=== PATIENT | male | born 1965 | race Caucasian/White ===

== ENCOUNTER 2016-05-14 14:53 | Emergency (ER) | payer OTHER ==
--- NOTE | 2016-05-14 15:19 | ED ---
General Adult HPI - General Chief complaint: Extremity Injury, Upper Stated complaint: Wrist pain Time Seen by Provider: 05/14/16 15:07 Source: patient, RN notes reviewed Mode of arrival: ambulatory Limitations: no limitations - History of Present Illness Initial comments: This is a 50-year-old male presents with right wrist pain 7 days. Patient states he was using his snowblower last week and noticed some soreness in the wrist after this. Patient denies any fall or forceful injury. Patient states he noticed swelling to the wrist just this morning. Patient states the pain is worse with flexion of the wrist and with [id number] motion of the wrist. Patient denies any numbness/weakness or tingling. Patient states he started a new job with a lot of repetitive motion using the bilateral upper extremities. Patient denies any history of rheumatoid arthritis or history of joint swelling , or gout. Patient is not on any anticoagulants. Patient denies any recent fever, chills, shortness breath, chest pain, abdominal pain, nausea/vomiting/ diarrhea, back pain, hematuria, headache, or visual changes, or any other complaints. - Related Data Home Medications Medication Instructions Recorded Confirmed Albuterol Inhaler [Ventolin 1 - 2 puff INHALATION RT-Q6H PRN 05/14/14 05/14/16 Inhaler] FLUoxetine HCL [PROzac] 20 mg PO DAILY 05/14/14 05/14/16 Naltrexone HCl [Revia] 50 mg PO DAILY 05/14/14 05/14/16 traZODone HCL 150 mg PO HS 05/14/14 05/14/16 Cholecalciferol [Vitamin D3] 2,000 unit PO DAILY 01/27/16 05/14/16 Pregabalin [Lyrica] 50 mg PO TID 01/27/16 05/14/16 Magnesium Oxide 1 tab PO DAILY 02/04/16 05/14/16 Allergies Allergy/AdvReac Type Severity Reaction Status Date / Time No Known Allergies Allergy Verified 05/14/16 14:58 Review of Systems ROS Statement: Those systems with pertinent positive or pertinent negative responses have been documented in the HPI. ROS Other: All systems not noted in ROS Statement are negative. 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, History of Any Multi-Drug Resistant Organisms: None Reported Past Surgical History: Cardiac Ablation, Heart Catheterization, Hernia Repair Additional Past Surgical History / Comment(s): JOSE INGUINAL HERNIA REPAIR, JOSE CARPAL TUNNEL, [facility] Past Anesthesia/Blood Transfusion Reactions: No Reported Reaction Past Psychological History: ADD/ADHD, Anxiety, Depression Additional Psychological History / Comment(s): STATES DOES NOT TAKE MEDICATION FOR ADD Smoking Status: Current every day smoker Past Alcohol Use History: None Reported Additional Past Alcohol Use History / Comment(s): STARTED SMOKING AT AGE 14, ( 1979) SMOKES 1 PPD. QUIT ETOH 2013 Past Drug Use History: None Reported Additional Drug Use History / Comment(s): TEENAGER - Past Family History Father Family Medical History: Unable to Obtain Additional Family Medical History / Comment(s): PASSED WHEN PT WAS 7 YEARS OLD. WAS AN ALCOHOLIC Mother Family Medical History: Deep Vein Thrombosis (DVT), Hypertension Additional Family Medical History / Comment(s): DIVERTICULTIS, DEPRESSION General Exam - General Exam Comments Initial Comments: General: The patient is awake and alert, in no distress, and does not appear acutely ill. Neck: The neck is supple, there is no tenderness or JVD. Cardiovascular: There is a regular rate and rhythm. No murmur, rub or gallop is appreciated. Respiratory: Lungs are clear to auscultation, respirations are non-labored, breath sounds are equal. No wheezes, stridor, rales, or rhonchi. Musculoskeletal: There is tenderness to palpation over the medial aspect of the right wrist on the volar side. There is pain with flexion and extension of the first digit of the right hand and has a positive Wendy test, on the right UE. There is mild swelling noted to the radial aspect of the volar right wrist. There is mild erythema to this area as well. Full range of motion, strength 5 /5 and Sensation intact. Radial pulses 2+ bilaterally. Normal capillary refill less than 2 seconds. Neurological: A&O x 3. CN II-XII intact, There are no obvious motor or sensory deficits. Coordination appears grossly intact. Speech is normal. Skin: Mild erythema and mild swelling noted to the volar aspect of the radial aspect of the right wrist. Skin is warm and dry and no rashes or lesions are noted. Psychiatric: Normal mood and affect. Limitations: no limitations Course Vital Signs 05/14/16 14:56 Temperature 97.8 F Pulse Rate 68 Respiratory 20 Rate Blood Pressure 133/76 O2 Sat by Pulse 100 Oximetry Medical Decision Making - Medical Decision Making This is a 50-year-old male presents with right wrist pain. On physical exam there is tenderness to palpation over the medial aspect of the right wrist on the dorsal side. There is pain with flexion and extension of the first digit of the right hand and has a positive Wendy test, on the right UE. There is mild swelling noted to the radial aspect of the dorsal right wrist. There is mild erythema to this area as well. Full range of motion, strength 5/5 and Sensation intact. Radial pulses 2+ bilaterally. Normal capillary refill less than 2 seconds. An x-ray of the right wrist was done and reviewed showing: There is pain with flexion and extension of the first digit of the right hand and has a positive Wendy test, on the right UE. Discussed rest, ice, elevate and use Oscar bandage for compression. Discussed over -the-counter Tylenol, ibuprofen/Aleve for pain. Discussed possible de Quervain' s tendinitis positive Wendy test. Discussed that patient has a thumb spica brace at home that is his 's. Discussed use of this over the next week for immobilization along with Oscar bandage and NSAIDs. Discussed return parameters. Discussed that patient should follow up with PCP in one to 2 days or return to the [facility] for any worsening symptoms or for any further concerns. Patient and who was also present in the room were receptive to this plan and patient will be discharged home. I discussed his case with attending physician Dr. Downing who agrees the plan as stated above. Disposition Clinical Impression: Tendinitis of right wrist Disposition: HOME SELF-CARE Condition: Good Instructions: Tendinitis (ED) Additional Instructions: Please use thumb spica splint that you have at home or Oscar wrap for compression and immobilization. Please use [id number] ibuprofen or Aleve as needed for any pain relief. Please rest, ice, elevate the right arm. Please use medication as discussed. Please follow-up with family doctor in the next 2 days of symptoms have not improved. Please return to emergency room if the symptoms increase or worsen or for any other concerns. Referrals: Epi Boyd DO [Primary Care Provider] - 1-2 days Time of Disposition: 15:43
--- NOTE | 2016-05-14 15:37 | XR ---
EXAMINATION TYPE: XR wrist complete RT DATE OF EXAM: 05/14/2016 3:26 PM COMPARISON: NONE HISTORY: 50-year-old male pain after repetitive motion, radial sided swelling. TECHNIQUE: 4 views FINDINGS: There is some soft tissue swelling seen overlying the radial aspect of the wrist. Radiocarp al and distal radial ulnar joint as well as the midcarpal compartment appear intact. No acute fractur e or dislocation. IMPRESSION: 1. No acute osseous abnormality seen. 2. Some radial sided soft tissue swelling. Soft tissue contusion or tenosynovitis are considerations.
[2016-05-14 15:53] VITALS: BP 129/88; PULSE 64; RESP 64; TEMP 98
--- NOTE | 2016-05-14 16:32 | ED ---
Medical Decision Making - Medical Decision Making Results of right wrist x-ray were done and reviewed with patient. Report showed : X-ray right wrist: #1 no acute osseous abnormality seen. #2 some radial sided soft tissue swelling. Soft tissue contusion or tenosynovitis are considerations. Reported by Dr. Munroe. Disposition Clinical Impression: Tendinitis of right wrist Disposition: HOME SELF-CARE Condition: Good Instructions: Tendinitis (ED) Additional Instructions: Please use thumb spica splint that you have at home or Oscar wrap for compression and immobilization. Please use [id number] ibuprofen or Aleve as needed for any pain relief. Please rest, ice, elevate the right arm. Please use medication as discussed. Please follow-up with family doctor in the next 2 days of symptoms have not improved. Please return to emergency room if the symptoms increase or worsen or for any other concerns. Referrals: Epi Boyd DO [Primary Care Provider] - 1-2 days
== END 2016-05-14 15:52 | disposition home or self-care (01) ==
LOC: EC 14:53
DX: M65.88 Other synovitis and tenosynovitis, other site (principal); J44.9 Chronic obstructive pulmonary disease, unspecified; F41.9 Anxiety disorder, unspecified; F32.9 Major depressive disorder, single episode, unspecified; F17.200 Nicotine dependence, unspecified, uncomplicated; Z79.899 Other long term (current) drug therapy
CPT/HCPCS: 99283

== ENCOUNTER 2016-06-20 09:20 | Day surgery (SDC) | payer OTHER ==
[2016-06-17 09:29] VITALS: BMI 22.1
[~2016-06-20 09:20] MED LIST: LACTATED RINGERS 1,000 ML IV SCH
[2016-06-20] MEDS ORDERED: LIDOCAINE 1% 20 ML VIAL (10MG/ML) FOR IV START INTRADERMA ONE (09:57)
[2016-06-20 10:04] VITALS: RESP 18; TEMP 97.6
[2016-06-20] MEDS ORDERED: fentaNYL (PF) 50 MCG/ML 2 ML AMP ONE (10:21)
[2016-06-20] MEDS ORDERED: MIDAZOLAM 2 MG/2 ML VIAL ONE (10:21)
[2016-06-20] MEDS ORDERED: IV FLUID CONTINUATION 1,000 ML IV ONE (11:06)
[2016-06-20 11:12] VITALS: BP 148/92; PULSE 60
--- NOTE | 2016-06-20 11:22 | P.PCN ---
Date of Procedure: 06/20/16 Procedure(s) Performed: Preoperative diagnoses= 1-left ilioinguinal neuralgia Postoperative diagnoses= same as preoperative diagnosis. Procedure= left ilioinguinal nerve block ultrasound guidance. Anesthesia= conscious sedation with Versed 2 mg and fentanyl 50 micrograms and local infiltration with lidocaine 1% 4 ml Estimated blood loss=minimal. Procedure indication= the patient had a history of severe chronic low back pain , diagnosed with sacroiliitis and lumbar sacral facet arthropathy unresponsive to conservative treatment. Procedure description= the patient was seen and identified in the preoperative holding area, risks and benefits and alternative of the procedure and possible complications discussed with the patient, and he agreed with the preceding, patient signed the consent, an IV was started, and vital signs were monitored and were stable throughout the procedure, patient was placed in the supine position on the stretcher, and the left groin area was prepped and draped with a standard fashion, and ultrasound probe placed medial to the anterior superior iliac crest, and the location of the left ilioinguinal nerve localized, local infiltration of the skin fenestration with Marcaine 0.75% 1 mL, then ultrasound needle, 22-gauge, advanced slowly, in plain, and the needle tip positioned in the area between the internal oblique muscle and the transverse abdominis muscle (at the location of the left ilioinguinal nerve ) total of 15 ML of Marcaine 0.75% mixed with 80 mg of Kenalog, injected after negative aspiration and there was no paresthesia during the injection Patient tolerated the procedure well without any complication, after the back was cleaned and a Band-Aid applied, the patient transported to recovery room in stable condition and he was monitored for 30 minutes before he was discharged home and then patient was reexamined before going home and patient was discharged in stable condition and patient will follow up with the pain clinic in a few weeks
== END 2016-06-20 11:52 | disposition home or self-care (01) ==
LOC: ORPAIN 09:20
PROVIDERS: ATTEND Specialist
DX: G89.29 Other chronic pain (principal); M54.5 Low back pain; G58.8 Other specified mononeuropathies; M46.1 Sacroiliitis, not elsewhere classified; M46.96 Unspecified inflammatory spondylopathy, lumbar region
CPT/HCPCS: 64425; 99152; 99153; J2250; J3010

== ENCOUNTER → 2016-07-05 | Outpatient (CLI) | payer OTHER ==
[2016-07-05 14:24] VITALS: BP 140/82; PULSE 68; RESP 18; TEMP 98.2
--- NOTE | 2016-07-05 14:56 | P.PN ---
Progress Note - Text Patient returns for followup for chronic left-sided groin pain after hernia surgery, s/p three ilioinguinal nerve blocks with 1-1.5 weeks' relief. Patient is only on Lyrica from his PCP and denies adverse drug effects from medications. Today, pt denies new-onset weakness, bowel/bladder incontinence, or any other signs or symptoms of cauda equina syndrome. There are no signs of acute intoxication, and no indications of medication diversion or overuse. In addition to above, 13-point review of systems is also negative for chest pain , shortness of breath, changes in vision, changes in hearing, new onset weakness , abdominal pain, diarrhea, extreme fatigue, malaise, fever, skin changes, homicidal or suicidal ideation, or bowel or bladder incontinence. Vital Signs: Reviewed in EMR Gen: WDWN, AAOx3, NAD HEENT: NCAT, EOMI, hearing grossly normal Pulm: resp unlabored Abd: soft, NT, ND Neck: supple, trachea midline TTP left groin area; no rebound or guarding Neuro: CN II-XII grossly intact, muscle strength lower extremities PRESERVED Imaging: Reviewed in EMR Assessment: 1. ilioinguinal neuralgia 2. chronic pain syndrome Plan: 1. Explanation: Opioid and psychological risk scores were reviewed. Diagnoses , prognoses, and multiple treatment options including but not limited to physical therapy, interventional therapies, adjuvant medical therapies, narcotic medication therapies, and surgery were discussed with the patient and all questions were answered to the patient's satisfaction. 2. Opioid agreement: no opioids prescribed 3. Counseling: The patient was counseled extensively on BODY MASS INDEX, EXERCISE. Specifically, the patient was instructed regarding the importance of weight control and exercise in the context of both chronic pain and overall health. 4. Procedures: will refer to [facility] (Dr. Metz) for ilioinguinal RFA 5. Consultations: None 6. Investigations: None 7. Medications: none prescribed 8. Disposition: f/u as needed; if patient begins to have worsening pain, he can schedule ilioinguinal NB by calling our clinic PQRS measures: 1-Patient's medications are documented in the chart. 2-Tobacco use is positive, counseling given 3-Patient has had a pneumococcal vaccine. 4-Advanced care planning discussed, patient unable to give. 5-Opioid contract NOT signed with the patient. 6-Pain positive, follow-up visit or procedure scheduled 7-Patient's blood pressure measured and documented, and patient will follow up with the primary care due to hypertension. 8-Patient's weight was measured, and body mass index within normal limits, and counseling was done. Patient instructed to follow up with PCP. 9-Patient WAS NOT identified as an unhealthy alcohol user.
== END | disposition home or self-care (01) ==
LOC: PNWHC3 14:02
PROVIDERS: ATTEND Anesthesiology
DX: G89.4 Chronic pain syndrome (principal); G58.8 Other specified mononeuropathies; I10 Essential (primary) hypertension; F17.200 Nicotine dependence, unspecified, uncomplicated; Z71.6 Tobacco abuse counseling; Z71.3 Dietary counseling and surveillance; Z98.890 Other specified postprocedural states
CPT/HCPCS: 99211

== ENCOUNTER → 2016-07-29 | Outpatient (CLI) | payer OTHER ==
--- NOTE | 2016-07-29 16:43 | XR ---
EXAMINATION TYPE: XR chest 2V DATE OF EXAM ORDERED: 07/29/2016 4:23 PM HISTORY: R63.4 Unexplained weight loss. REFERENCE: Previous study dated 01/30/2015. FINDINGS: The lungs are clear. Pleural spaces are clear. Heart size is normal. IMPRESSION: NORMAL CHEST.
== END | disposition home or self-care (01) ==
LOC: RADXRMAIN 16:09
PROVIDERS: ATTEND Family Medicine
DX: R63.4 Abnormal weight loss (principal); J44.9 Chronic obstructive pulmonary disease, unspecified; Z87.891 Personal history of nicotine dependence
CPT/HCPCS: 71020

== ENCOUNTER 2016-10-01 12:54 | Emergency (ER) | payer OTHER ==
[2016-10-01 12:59] VITALS: BP 132/85; PULSE 75; RESP 20; TEMP 98.1
[2016-10-01] MEDS ORDERED: PROPARACAINE 0.5% OPHTH DROPS 15 ML BTL RIGHT EYE STA (13:02)
[2016-10-01] MEDS ORDERED: ERYTHROMYCIN 5 MG/GM OPHTH OINT 3.5 GM TUBE RIGHT EYE STA (13:10)
--- NOTE | 2016-10-01 13:43 | ED ---
Eye Problem HPI - General Chief complaint: Eye Problems Stated complaint: Right Eye Pain Time Seen by Provider: 10/01/16 13:02 Source: patient, RN notes reviewed, old records reviewed Mode of arrival: ambulatory Limitations: no limitations - History of Present Illness Initial comments: Pleasant 51-year-old male presents emergency Department with right eye irritation. 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 Patient reports he will continue with scratching irritated. Patient states that he wears glasses. Patient states that his tetanus is up-to-date. Denies any changes in vision. Patient reports that he has not seen an memorial designer in the past. Patient denies any recent fever, chills, shortness of breath, chest pain, back pain, abdominal pain, nausea vomiting, numbness or tingling, dysuria or hematuria, constipation or diarrhea, headaches or visual changes, or any other current symptoms - Related Data Home Medications Medication Instructions Recorded Confirmed Albuterol Inhaler [Ventolin 1 - 2 puff INHALATION RT-Q6H PRN 05/14/14 06/20/16 Inhaler] FLUoxetine HCL [PROzac] 20 mg PO DAILY 05/14/14 07/05/16 Naltrexone HCl [Revia] 50 mg PO DAILY 05/14/14 07/05/16 traZODone HCL 150 mg PO HS 05/14/14 07/05/16 Cholecalciferol [Vitamin D3] 2,000 unit PO DAILY 01/27/16 06/20/16 Pregabalin [Lyrica] 50 mg PO TID 01/27/16 07/05/16 Magnesium Oxide 1 tab PO DAILY 02/04/16 07/05/16 Amoxicillin 07/05/16 Ibuprofen [Motrin] 800 mg PO Q8HR PRN 07/05/16 07/05/16 Allergies Allergy/AdvReac Type Severity Reaction Status Date / Time No Known Allergies Allergy Verified 10/01/16 13:00 Review of Systems ROS Statement: Those systems with pertinent positive or pertinent negative responses have been documented in the HPI. ROS Other: All systems not noted in ROS Statement are negative. 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, History of Any Multi-Drug Resistant Organisms: None Reported Past Surgical History: Cardiac Ablation, Heart Catheterization, Hernia Repair Additional Past Surgical History / Comment(s): JOSE INGUINAL HERNIA REPAIR, JOSE CARPAL TUNNEL, [facility]/TOOTH EXTRACTION Past Anesthesia/Blood Transfusion Reactions: No Reported Reaction Past Psychological History: ADD/ADHD, Anxiety, Depression Additional Psychological History / Comment(s): STATES DOES NOT TAKE MEDICATION FOR ADD Smoking Status: Current every day smoker Past Alcohol Use History: None Reported Additional Past Alcohol Use History / Comment(s): STARTED SMOKING AT AGE 14, ( 1979) SMOKES 1 PPD. QUIT ETOH 2013 Past Drug Use History: None Reported Additional Drug Use History / Comment(s): TEENAGER - Past Family History Father Family Medical History: Unable to Obtain Additional Family Medical History / Comment(s): PASSED WHEN PT WAS 7 YEARS OLD. WAS AN ALCOHOLIC Mother Family Medical History: Deep Vein Thrombosis (DVT), Hypertension Additional Family Medical History / Comment(s): DIVERTICULTIS, DEPRESSION General Exam Limitations: no limitations General appearance: alert, in no apparent distress Head exam: Present: atraumatic, normocephalic, normal inspection Eye exam: Present: normal appearance, PERRL, EOMI, conjunctival injection ( Right eye conjunctival injection. Evidence of a foreign metal body at the 5 o' clock position.). Absent: scleral icterus, periorbital swelling ENT exam: Present: normal exam, mucous membranes moist Neck exam: Present: normal inspection. Absent: tenderness, meningismus, lymphadenopathy Respiratory exam: Present: normal lung sounds bilaterally. Absent: respiratory distress, wheezes, rales, rhonchi, stridor Cardiovascular Exam: Present: regular rate, normal rhythm, normal heart sounds. Absent: systolic murmur, diastolic murmur, rubs, gallop, clicks GI/Abdominal exam: Present: soft, normal bowel sounds. Absent: distended, tenderness, guarding, rebound, rigid Extremities exam: Present: normal inspection, full ROM, normal capillary refill. Absent: tenderness, pedal edema, joint swelling, calf tenderness Back exam: Present: normal inspection Neurological exam: Present: alert, oriented X3, CN II-XII intact Psychiatric exam: Present: normal affect, normal mood Skin exam: Present: warm, dry, intact, normal color. 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 Patient reports he slept overnight puts him at home saline drops in his eye but is continued to be red and irritated. Patient reports it feels scratchy. Patient has evidence of foreign metal body at the 5 o'clock position. Patient's eye was visualized with a slit lamp. The foreign body was attempted to be removed by an Frederick brush. Foreign body was removed, as well as mild rust ring.. Patient started on erythromycin eye ointment. Discussed putting in an every 4 hours for the next 2 days. Patient is a given a referral for ophthalmology. Patient understands treatment plan will comply. Disposition Clinical Impression: Foreign body in eyeball, right, Corneal abrasion Disposition: HOME SELF-CARE Condition: Good Instructions: Corneal Abrasion (ED), Eye Foreign Body (ED) Additional Instructions: Patient advised to follow-up with memorial designer if symptoms continue to persist after 2-3 days. Always wear safety goggles when working with metal. Return to the emergency department if any alarming signs or symptoms occur. Referrals: Epi Boyd DO [Primary Care Provider] - 1-2 days Time of Disposition: 13:42
== END 2016-10-01 13:52 | disposition home or self-care (01) ==
LOC: EC 12:54
DX: T15.01XA Foreign body in cornea, right eye, initial encounter (principal); F32.9 Major depressive disorder, single episode, unspecified; F17.200 Nicotine dependence, unspecified, uncomplicated; Z79.899 Other long term (current) drug therapy; W45.8XXA Other foreign body or object entering through skin, initial encounter; Y93.89 Activity, other specified; Y92.69 Other specified industrial and construction area as the place of occurrence of the external cause
CPT/HCPCS: 65222; 99283

== ENCOUNTER 2016-10-12 16:39 | Emergency (ER) | payer OTHER ==
[2016-10-12 17:30] VITALS: BP 145/89; PULSE 61; RESP 16; TEMP 98
[2016-10-12] MEDS ORDERED: IBUPROFEN 600 MG TAB PO STA (18:14)
--- NOTE | 2016-10-12 18:21 | ED ---
Lower Extremity Injury HPI - General Chief Complaint: Extremity Injury, Lower Stated Complaint: Smashed pinky & toe Time Seen by Provider: 10/12/16 18:04 Source: patient, RN notes reviewed Mode of arrival: ambulatory Limitations: no limitations - History of Present Illness Initial Comments: Patient is a 51-year-old male presents to the emergency room for evaluation. Patient states that he was holding 100 pound metal pipe and accidentally dropped it. Patient states he tried to catch the pipe and hit his fifth finger of his right hand and then it landed on his second and third toes of his left foot. Patient states he has pain every time he tries to walk or move his finger and toes. Patient states the incident happened around 9:30 AM. Patient denies any other injuries during incident. Patient denies any numbness or tingling in his right pinky or left second and third toes. - Related Data Home Medications Medication Instructions Recorded Confirmed Albuterol Inhaler [Ventolin 1 - 2 puff INHALATION RT-Q6H PRN 05/14/14 06/20/16 Inhaler] FLUoxetine HCL [PROzac] 20 mg PO DAILY 05/14/14 07/05/16 Naltrexone HCl [Revia] 50 mg PO DAILY 05/14/14 07/05/16 traZODone HCL 150 mg PO HS 05/14/14 07/05/16 Cholecalciferol [Vitamin D3] 2,000 unit PO DAILY 01/27/16 06/20/16 Pregabalin [Lyrica] 50 mg PO TID 01/27/16 07/05/16 Magnesium Oxide 1 tab PO DAILY 02/04/16 07/05/16 Amoxicillin 07/05/16 Ibuprofen [Motrin] 800 mg PO Q8HR PRN 07/05/16 07/05/16 Allergies Allergy/AdvReac Type Severity Reaction Status Date / Time No Known Allergies Allergy Verified 10/12/16 17:29 Review of Systems ROS Statement: Those systems with pertinent positive or pertinent negative responses have been documented in the HPI. ROS Other: All systems not noted in ROS Statement are negative. 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, History of Any Multi-Drug Resistant Organisms: None Reported Past Surgical History: Cardiac Ablation, Heart Catheterization, Hernia Repair Additional Past Surgical History / Comment(s): JOSE INGUINAL HERNIA REPAIR, JOSE CARPAL TUNNEL, [facility]/TOOTH EXTRACTION Past Anesthesia/Blood Transfusion Reactions: No Reported Reaction Past Psychological History: ADD/ADHD, Anxiety, Depression Additional Psychological History / Comment(s): STATES DOES NOT TAKE MEDICATION FOR ADD Smoking Status: Current every day smoker Past Alcohol Use History: None Reported Additional Past Alcohol Use History / Comment(s): STARTED SMOKING AT AGE 14, ( 1979) SMOKES 1 PPD. QUIT ETOH 2013 Past Drug Use History: None Reported Additional Drug Use History / Comment(s): TEENAGER - Past Family History Father Family Medical History: Unable to Obtain Additional Family Medical History / Comment(s): PASSED WHEN PT WAS 7 YEARS OLD. WAS AN ALCOHOLIC Mother Family Medical History: Deep Vein Thrombosis (DVT), Hypertension Additional Family Medical History / Comment(s): DIVERTICULTIS, DEPRESSION General Exam - General Exam Comments Initial Comments: sitting in exam room, no acute distress. Limitations: no limitations General appearance: alert, in no apparent distress Head exam: Present: atraumatic, normocephalic, normal inspection Eye exam: Present: normal appearance ENT exam: Present: normal exam Neck exam: Present: normal inspection Respiratory exam: Absent: respiratory distress Right Hand Wrist exam: Present: full ROM, tenderness (tenderness on palpating over her distal phalanx of fifth digit), subungual hematoma (small subungual hematoma of fifth digit) Vascular: Present: normal capillary refill (capillary refill less than 2 seconds ), radial pulse (2+), ulnar pulse (2+) Left Foot/Toe exam: Present: full ROM, tenderness (tenderness on palpating over the middle and distal phalanx of the second and third digits), ecchymosis (second and third digits). Absent: normal inspection Neurovascular tendon exam: Present: no vascular compromise. Absent: pulse deficit (2+ dorsal pedal and posterior tibial pulses), abnormal cap refill ( capillary refill less than 2 seconds) Back exam: Present: normal inspection Neurological exam: Present: alert, oriented X3, CN II-XII intact Psychiatric exam: Present: normal affect, normal mood Skin exam: Present: warm, dry, intact, normal color. Absent: rash Course Vital Signs 10/12/16 10/12/16 17:24 19:09 Temperature 98.0 F 98.0 F Pulse Rate 61 61 Respiratory 16 16 Rate Blood Pressure 145/89 145/89 O2 Sat by Pulse 100 100 Oximetry Medical Decision Making - Medical Decision Making Patient is a 51-year-old male presents to the emergency room for evaluation of right hand pinky and left second and third digit pain. X-ray showed no acute fractures dislocations. Patient placed in a postop shoe advised to follow-up with primary care provider if symptoms are not improving in 7-10 days. Patient states he understands everything that was discussed with him. Return parameters discussed. - Radiology Data Radiology results: report reviewed, image reviewed Disposition Clinical Impression: Finger contusion, Contusion, toes Disposition: HOME SELF-CARE Condition: Good Instructions: Foot Contusion (ED), Finger Sprain (ED) Additional Instructions: Ice on and off for 10-15 minutes for the next 24-48 hours. take Tylenol or Motrin as needed for pain. Please follow-up with primary care provider if symptoms do not improve in 7-10 days. If new symptoms develop or symptoms worsen , please return to the ER. Referrals: Epi Boyd DO [Primary Care Provider] - 1-2 days Time of Disposition: 18:45
--- NOTE | 2016-10-12 18:32 | XR ---
EXAMINATION TYPE: XR finger RT DATE OF EXAM: 10/12/2016 COMPARISON: NONE HISTORY: Contusion TECHNIQUE: 3 views FINDINGS: I see no fracture nor dislocation. Joint spaces are normal. IMPRESSION: Negative right little finger exam.
--- NOTE | 2016-10-12 18:33 | XR ---
EXAMINATION TYPE: XR foot complete LT DATE OF EXAM: 10/12/2016 COMPARISON: NONE HISTORY: Contusion pain. TECHNIQUE: 3 views FINDINGS: I see no fracture nor dislocation. Metatarsals appear intact. Joint spaces appear normal. T here is a small Achilles calcaneal spur. IMPRESSION: Mild calcaneal spurring. No fracture.
== END 2016-10-12 19:09 | disposition home or self-care (01) ==
LOC: EC 16:39
DX: S60.051A Contusion of right little finger without damage to nail, initial encounter (principal); S90.122A Contusion of left lesser toe(s) without damage to nail, initial encounter; F32.9 Major depressive disorder, single episode, unspecified; F17.200 Nicotine dependence, unspecified, uncomplicated; Z79.899 Other long term (current) drug therapy; W20.8XXA Other cause of strike by thrown, projected or falling object, initial encounter
CPT/HCPCS: 99283

== ENCOUNTER 2016-11-17 02:52 | Emergency (ER) | payer OTHER ==
[2016-11-17 02:59] VITALS: BP 119/81; PULSE 89; RESP 18; TEMP 97.4
--- NOTE | 2016-11-17 03:44 | ED ---
Anxiety HPI - General Chief Complaint: Anxiety Stated Complaint: Alcohol/Detox Time Seen by Provider: 11/17/16 03:14 Source: patient, family, RN notes reviewed, old records reviewed Mode of arrival: ambulatory - History of Present Illness Initial Comments: 51-year-old male presents emergency Department chief complaint of severe anxiety and a lot of stressors over the past week. Patient reports that he started drinking last night and drank a half a pint of vodka. Patient reports he broke his sobriety 3 years today. He reports he lost his job as well as had a friend's diagnosis of cancer past week. Patient reports he is not able to handle distress. Patient's also reports that they've been eating and more frequent arguments. Patient's and patient are requesting that he can get back on has not drank some to help him stop from having the urge to drink or use drugs. Patient trying to get his prescription from his primary care doctor however they do not prescribe. patient reports having increased anxiety. she denies any suicidal or homicidal thoughts. he reports he is to have a counselor but does not seen a counselor in 3 months. Patient denies any recent fever, chills, shortness of breath, chest pain, back pain, abdominal pain, nausea vomiting, numbness or tingling, dysuria or hematuria, constipation or diarrhea, headaches or visual changes, or any other current symptoms - Related Data Home Medications: Home Medications Medication Instructions Recorded Confirmed Albuterol Inhaler [Ventolin 1 - 2 puff INHALATION RT-Q6H PRN 05/14/14 11/17/16 Inhaler] FLUoxetine HCL [PROzac] 20 mg PO DAILY 05/14/14 11/17/16 Naltrexone HCl [Revia] 50 mg PO DAILY 05/14/14 11/17/16 traZODone HCL 150 mg PO HS 05/14/14 11/17/16 Cholecalciferol [Vitamin D3] 2,000 unit PO DAILY 01/27/16 11/17/16 Pregabalin [Lyrica] 50 mg PO TID 01/27/16 11/17/16 Magnesium Oxide 1 tab PO DAILY 02/04/16 11/17/16 Ibuprofen [Motrin] 800 mg PO Q8HR PRN 07/05/16 11/17/16 Previous Rx's Medication Instructions Recorded LORazepam [Ativan] 0.5 mg PO BID #10 tab 11/17/16 Allergies/Adverse Reactions: Allergies Allergy/AdvReac Type Severity Reaction Status Date / Time No Known Allergies Allergy Verified 11/17/16 02:59 Review of Systems ROS Statement: Those systems with pertinent positive or pertinent negative responses have been documented in the HPI. ROS Other: All systems not noted in ROS Statement are negative. 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, History of Any Multi-Drug Resistant Organisms: None Reported Past Surgical History: Cardiac Ablation, Heart Catheterization, Hernia Repair Additional Past Surgical History / Comment(s): JOSE INGUINAL HERNIA REPAIR, JOSE CARPAL TUNNEL, [facility]/TOOTH EXTRACTION Past Anesthesia/Blood Transfusion Reactions: No Reported Reaction Past Psychological History: ADD/ADHD, Anxiety, Depression Smoking Status: Current every day smoker Past Alcohol Use History: Rare Past Drug Use History: None Reported - Past Family History Father Family Medical History: Unable to Obtain Additional Family Medical History / Comment(s): PASSED WHEN PT WAS 7 YEARS OLD. WAS AN ALCOHOLIC Mother Family Medical History: Deep Vein Thrombosis (DVT), Hypertension Additional Family Medical History / Comment(s): DIVERTICULTIS, DEPRESSION General Exam - General Exam Comments Initial Comments: Well-appearing 51-year-old male. No acute distress. General: Well appearing, well nourished, in no distress. Oriented x 3, normal mood and affect . Ambulating without difficulty. Skin: Good turgor, no rash, unusual bruising or prominent lesions Hair: Normal texture and distribution. HEENT: Head: Normocephalic, atraumatic, no visible or palpable masses, depressions, or scaring. Eyes: Visual acuity intact, conjunctiva clear, sclera non-icteric, EOM intact, PERRL. Ears: EACs clear, TMs translucent & cone of light visualized. hearing intact. Nose: No external lesions, mucosa non-inflamed, septum and turbinates normal Mouth: Mucous membranes moist, no mucosal lesions. Pharynx: Mucosa non-inflamed, no tonsillar hypertrophy or exudate Neck: Supple, without lesions, bruits, or adenopathy, thyroid non-enlarged and non-tender Heart: No cardiomegaly or thrills; regular rate and rhythm, no murmur or gallop Lungs: Clear to auscultation and percussion Abdomen: Bowel sounds normal, no tenderness, organomegaly, masses, or hernia Back: Spine normal without deformity or tenderness, no CVA tenderness Rectal: Normal sphincter tone, no hemorrhoids or masses palpable Extremities: No amputations or deformities, cyanosis, edema or varicosities, peripheral pulses intact Musculoskeletal: Normal gait and station. No misalignment, asymmetry, crepitation, defects, tenderness, masses, effusions, decreased range of motion, instability, atrophy or abnormal strength or tone in the head, neck, spine, ribs , pelvis or extremities. Neurologic: Patient is alert and oriented. No evidence of focal deficits. Psychiatric: Oriented X3, intact recent and remote memory, Patient reports that he is increasingly anxious. Denies any suicidal or homicidal ideations. Limitations: no limitations Course Vital Signs 11/17/16 02:54 Temperature 97.4 F L Pulse Rate 89 Respiratory 18 Rate Blood Pressure 119/81 O2 Sat by Pulse 98 Oximetry Medical Decision Making - Medical Decision Making 51-year-old male presents emergency Department chief complaint of severe anxiety and a lot of stressors over the past week. Patient reports that he started drinking last night and drank a half a pint of vodka. Patient reports he broke his sobriety 3 years today. He reports he lost his job as well as had a friend's diagnosis of cancer past week. Patient reports he is not able to handle distress. Patient's also reports that they've been eating and more frequent arguments. Patient's and patient are requesting that he can get back on has not drank some to help him stop from having the urge to drink or use drugs. Patient trying to get his prescription from his primary care doctor however they do not prescribe. patient reports having increased anxiety. she denies any suicidal or homicidal thoughts. he reports he is to have a counselor but does not seen a counselor in 3 months. Discussed the patient that I'll not be able to fill his prescription for an naltrexone. Discussed that I can give patient a short prescription of Ativan and also to help prevent withdrawal. Discussed following up with his counselor. Patient only given referrals for physicians who will possibly prescribed naltrexone for him. Disposition Clinical Impression: Anxiety Disposition: HOME SELF-CARE Condition: Good Instructions: Generalized Anxiety Disorder (ED) Additional Instructions: Patient advised to follow-up with outpatient referrals. Use medication as prescribed for acute anxiety attacks. Patient should follow-up with other physicians in regards to filling a naltrexone prescription. RETURN TO THE EMERGENCY DEPARTMENT IF ANY ALARMING SIGNS OR SYMPTOMS OCCUR. Prescriptions: LORazepam [Ativan] 0.5 mg PO BID #10 tab Referrals: Epi Boyd DO [Primary Care Provider] - 1-2 days Ivory Lindsey MD [Medical Doctor] - 1-2 days Amrik Milner MD [STAFF PHYSICIAN] - 1-2 days Time of Disposition: 03:40
== END 2016-11-17 04:00 | disposition home or self-care (01) ==
LOC: EC 02:52
DX: F41.9 Anxiety disorder, unspecified (principal); F32.9 Major depressive disorder, single episode, unspecified; F17.200 Nicotine dependence, unspecified, uncomplicated; Z79.899 Other long term (current) drug therapy
CPT/HCPCS: 99283

== ENCOUNTER 2017-05-31 08:44 | Day surgery (SDC) | payer OTHER ==
[2017-05-26 14:23] VITALS: BMI 22.1
--- NOTE | 2017-05-31 07:39 | P.GSHP ---
History of Present Illness H&P Date: 05/31/17 CHIEF COMPLAINT: Colon screen HISTORY OF PRESENT ILLNESS: The patient is a 51-year-old male who presents for colon screen. Lower endoscopy was offered for further evaluation and management. PAST MEDICAL HISTORY: Please see list. PAST SURGICAL HISTORY: Please see list. MEDICATIONS: Please see list. ALLERGIES: Please see list. SOCIAL HISTORY: No illicit drug use FAMILY HISTORY: No reports of Crohn disease or ulcerative colitis. REVIEW OF ORGAN SYSTEMS: CONSTITUTIONAL: No reports of fevers or chills. PHYSICAL EXAM: VITAL SIGNS: Stable GENERAL: Well-developed pleasant in no acute distress. HEENT: No scleral icterus. Extraocular movements grossly intact. Moist buccal mucosa. NECK: Supple without lymphadenopathy. CHEST: Unlabored respirations. Equal bilateral excursions. CARDIOVASCULAR: Regular rate and rhythm. Distal 2+ pulses. ABDOMEN: Soft, nontender, nondistended. MUSCULOSKELETAL: No clubbing, cyanosis, or edema. ASSESSMENT: 1. Colon screen. PLAN: 1. 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 WAS AN ALCOHOLIC Mother Family Medical History: Deep Vein Thrombosis (DVT), Hypertension Additional Family Medical History / Comment(s): DIVERTICULTIS, DEPRESSION Medications and Allergies Home Medications Medication Instructions Recorded Confirmed Type Albuterol Inhaler [Ventolin 1 - 2 puff INHALATION RT-Q6H PRN 05/14/14 05/26/17 History Inhaler] FLUoxetine HCL [PROzac] 20 mg PO DAILY 05/14/14 05/26/17 History Naltrexone HCl [Revia] 50 mg PO DAILY 05/14/14 05/26/17 History traZODone HCL 150 mg PO HS 05/14/14 05/26/17 History Cholecalciferol [Vitamin D3] 2,000 unit PO DAILY 01/27/16 05/26/17 History Pregabalin [Lyrica] 50 mg PO TID 01/27/16 05/26/17 History Tamsulosin [Flomax] 0.4 mg PO HS 05/26/17 05/26/17 History Allergies Allergy/AdvReac Type Severity Reaction Status Date / Time No Known Allergies Allergy Verified 05/26/17 14:18
[2017-05-31 09:13] VITALS: TEMP 97.8
[2017-05-31] MEDS ORDERED: LIDOCAINE 1% 20 ML VIAL (10MG/ML) FOR IV START INTRADERMA ONE (09:19)
[2017-05-31] MEDS ORDERED: LIDOCAINE 1% INJ 10MG/ML (20 ML MDV) ONE (09:43)
[2017-05-31] MEDS ORDERED: PROPOFOL 10 MG/ML 20 ML VIAL IV ONE (09:43)
--- NOTE | 2017-05-31 10:08 | P.PCN ---
Date of Procedure: 05/31/17 Description of Procedure: PREOPERATIVE DIAGNOSIS: Colonoscopy screening. Family history of colon cancer. POSTOPERATIVE DIAGNOSIS: Colonoscopy screening. Family history of colon cancer. Hyperplastic polyp, ascending colon. External hemorrhoid, grade 2. OPERATION: Colonoscopy to the ileocecal valve and appendiceal orifice. Colonoscopy with cold forceps biopsy, ascending colon. SURGEON: Trinity Bullock MD. ANESTHESIA: MAC. INDICATIONS: The patient is a 51-year-old male who presents for his first colonoscopy screening. Benefits and risks were described and informed consent was obtained. DESCRIPTION OF PROCEDURE: The patient had undergone Gatorade, MiraLAX and Dulcolax prep. He had been brought into the operating room and laid in the left lateral decubitus position. After adequate intravenous sedation, the rectum was examined with 2% lidocaine jelly. External hemorrhoids were encountered. The rectal tone was within normal limits. No lesions were palpated in the rectal vault. An Olympus colonoscope was advanced until the ileocecal valve and appendiceal orifice were clearly viewed. The prep was excellent with clear visualization of the mucosal folds. The scope was removed with visualization of each mucosal fold. No scattered diverticulosis was encountered. A 3 mm tubular adenoma was cold forceps biopsy to completion on the ascending colon. No evidence of focal colitis was found. Retroflexion of the scope demonstrated grade 2 internal hemorrhoids without active bleeding or inflammation. The colon was desufflated. The patient had tolerated the procedure well. Withdrawal time was over 6 minutes. FINDINGS: Internal hemorrhoids, grade 2 External prolapsed hemorrhoids, grade 2. No arteriovenous malformations. A 3 mm tubular adenoma was cold forceps biopsy to completion on the ascending colon. No focal colitis. RECOMMENDATIONS: Lower endoscopy in 5 years, 2022 Plan - Discharge Summary New Discharge Prescriptions: No Action Naltrexone HCl [Revia] 50 mg PO DAILY traZODone HCL 150 mg PO HS FLUoxetine HCL [PROzac] 20 mg PO DAILY Albuterol Inhaler [Ventolin Inhaler] 1 - 2 puff INHALATION RT-Q6H PRN PRN Reason: Shortness Of Breath Pregabalin [Lyrica] 50 mg PO TID Cholecalciferol [Vitamin D3] 2,000 unit PO DAILY Tamsulosin [Flomax] 0.4 mg PO HS Discharge Medication List Albuterol Inhaler [Ventolin Inhaler] 1 - 2 puff INHALATION RT-Q6H PRN 05/14/14 [ History] FLUoxetine HCL [PROzac] 20 mg PO DAILY 05/14/14 [History] Naltrexone HCl [Revia] 50 mg PO DAILY 05/14/14 [History] traZODone HCL 150 mg PO HS 05/14/14 [History] Cholecalciferol [Vitamin D3] 2,000 unit PO DAILY 01/27/16 [History] Pregabalin [Lyrica] 50 mg PO TID 01/27/16 [History] Tamsulosin [Flomax] 0.4 mg PO HS 05/26/17 [History]
[2017-05-31 10:24] VITALS: RESP 16
[2017-05-31 10:41] VITALS: BP 114/73; PULSE 69
== END 2017-05-31 11:02 | disposition home or self-care (01) ==
LOC: ORWHC2ENDO 08:44
PROVIDERS: ATTEND Surgery Plastic and Reconstructive Surgery
DX: Z12.11 Encounter for screening for malignant neoplasm of colon (principal); D12.2 Benign neoplasm of ascending colon; K64.1 Second degree hemorrhoids; J44.9 Chronic obstructive pulmonary disease, unspecified; K21.9 Gastro-esophageal reflux disease without esophagitis; M19.90 Unspecified osteoarthritis, unspecified site; N40.0 Benign prostatic hyperplasia without lower urinary tract symptoms; F32.9 Major depressive disorder, single episode, unspecified; F17.210 Nicotine dependence, cigarettes, uncomplicated; Z79.899 Other long term (current) drug therapy; Z86.79 Personal history of other diseases of the circulatory system; Z80.0 Family history of malignant neoplasm of digestive organs; Z82.49 Family history of ischemic heart disease and other diseases of the circulatory system
CPT/HCPCS: 45380; 88305; J2001; J2704

== ENCOUNTER → 2017-08-09 | Outpatient (CLI) | payer OTHER ==
[2017-08-09 09:50] LABS: Potassium 4.2 mmol/L (3.5-5.1)
== END | disposition home or self-care (01) ==
LOC: LABPAT 08:55
PROVIDERS: ATTEND Anesthesiology
DX: Z01.812 Encounter for preprocedural laboratory examination (principal); Z01.818 Encounter for other preprocedural examination; Z79.899 Other long term (current) drug therapy
CPT/HCPCS: 36415; 80051; 93005

== ENCOUNTER 2017-08-11 07:17 | Day surgery (SDC) | payer OTHER ==
[2017-08-03 08:50] VITALS: BMI 22.6
--- NOTE | 2017-08-10 17:45 | P.GSHP ---
History of Present Illness H&P Date: 08/11/17 CHIEF COMPLAINT: Ventral hernia HISTORY OF PRESENT ILLNESS: The patient is a 51-year-old male who presents with a history of swelling and pain along the abdomen. He has had previous repair. He's noted increased swelling including pain of the area. Now he presents for repair of ventral hernia. PAST MEDICAL HISTORY: Please see list. PAST SURGICAL HISTORY: Please see list. MEDICATIONS: Please see list. ALLERGIES: Please see list. SOCIAL HISTORY: No illicit drug use FAMILY HISTORY: No reports of Crohn disease or ulcerative colitis. REVIEW OF ORGAN SYSTEMS: CONSTITUTIONAL: No reports of fevers or chills. No reports of weight loss despite prior attempts. GI: Denies any blood in stools or constipation. PHYSICAL EXAM: VITAL SIGNS: Stable GENERAL: Well-developed pleasant male in no acute distress. HEENT: No scleral icterus. Extraocular movements grossly intact. Moist buccal mucosa. NECK: Supple without lymphadenopathy. CHEST: Unlabored respirations. Equal bilateral excursions. CARDIOVASCULAR: Regular rate and rhythm. Distal 2+ pulses. ABDOMEN: Soft, nondistended. No peritoneal signs. Palpable defect of the left lower abdomen MUSCULOSKELETAL: No clubbing, cyanosis, or edema. ASSESSMENT: 1. Ventral hernia, left and symptomatic PLAN: 1. Recommend proceeding with a robotic ventral repair with mesh 2. Benefits and risks of surgical intervention was discussed including possibility of open technique. 3. DVT prophylaxis. 4. Antibiotic prophylaxis. 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 WAS AN ALCOHOLIC Mother Family Medical History: Deep Vein Thrombosis (DVT), Hypertension Additional Family Medical History / Comment(s): DIVERTICULTIS, DEPRESSION Medications and Allergies Home Medications Medication Instructions Recorded Confirmed Type Albuterol Inhaler [Ventolin 1 - 2 puff INHALATION RT-Q6H PRN 05/14/14 08/03/17 History Inhaler] FLUoxetine HCL [PROzac] 20 mg PO DAILY 05/14/14 08/03/17 History Naltrexone HCl [Revia] 50 mg PO DAILY 05/14/14 08/03/17 History traZODone HCL 150 mg PO HS 05/14/14 08/03/17 History Cholecalciferol [Vitamin D3] 2,000 unit PO DAILY 01/27/16 08/03/17 History Pregabalin [Lyrica] 50 mg PO TID 01/27/16 08/03/17 History Tamsulosin [Flomax] 0.4 mg PO HS 05/26/17 08/03/17 History Allergies Allergy/AdvReac Type Severity Reaction Status Date / Time No Known Allergies Allergy Verified 08/03/17 08:42
[~2017-08-11 07:17] MED LIST changes: +ACETAMINOPHEN IV (For NPO) 1,000 MG in EMPTY BAG 1 BAG IVPB ONE; +DEXAMETHASONE SOD PHOSPHATE 10 MG/ML 1 ML VIAL IV ONE; +HEPARIN SODIUM,PORCINE 5,000 UNIT/ML 1 ML VIAL SQ ONE; +MIDAZOLAM 2 MG/2 ML VIAL IV PRN; +ONDANSETRON 4 MG/2 ML VIAL IVP ONE; +SCOPOLAMINE 1.5MG/72HR PATCH TRANSDERM ONE; +ceFAZolin IN SWFI 2 GM/20 ML SYRINGE IVP ONE; +fentaNYL (PF) 50 MCG/ML 2 ML AMP IV PRN
[2017-08-11] MEDS ORDERED: LIDOCAINE 1% 20 ML VIAL (10MG/ML) FOR IV START INTRADERMA ONE (08:25)
[2017-08-11 08:30] LABS: HCT 42.6 % (39.0-53.0); MCH 30.4 pg (25.0-35.0); MCHC 35.2 g/dL (31.0-37.0); MCV 86.5 fL (80.0-100.0); Platelet Count 196 k/uL (150-450); RBC 4.93 m/uL (4.30-5.90); RDW 12.7 % (11.5-15.5); WBC 7.7 k/uL (3.8-10.6)
[2017-08-11] MEDS ORDERED: FAMOTIDINE 20 MG/2 ML VIAL IV ONE (08:30)
[2017-08-11] MEDS ORDERED: ROCURONIUM BROMIDE 10 MG/ML 10 ML VIAL IV ONE (08:35)
[2017-08-11] MEDS ORDERED: PROPOFOL 10 MG/ML 20 ML VIAL IV ONE (08:35)
[2017-08-11] MEDS ORDERED: MIDAZOLAM 2 MG/2 ML VIAL ONE (08:35)
[2017-08-11] MEDS ORDERED: fentaNYL (PF) 50 MCG/ML 2 ML AMP ONE (08:35)
[2017-08-11] MEDS ORDERED: SUCCINYLCHOLINE CHLORIDE 100 MG/5 ML SYR IV ONE (08:35)
[2017-08-11] MEDS ORDERED: GLYCOPYRROLATE 0.2 MG/ML 2 ML VIAL ONE (08:35)
[2017-08-11] MEDS ORDERED: LIDOCAINE 1% INJ 10MG/ML (20 ML MDV) ONE (08:35)
[2017-08-11] MEDS ORDERED: NEOSTIGMINE 1 MG/ML 10 ML VIAL ONE (08:35)
[2017-08-11] MEDS ORDERED: BUPIVACAINE (PF) 0.25% 30 ML VIAL SQ ONE (09:01)
[2017-08-11] MEDS ORDERED: LACTATED RINGERS 1,000 ML IV ONE (09:30)
--- NOTE | 2017-08-11 10:04 | P.OP ---
Date of Procedure: 08/11/17 Description of Procedure: SURGEON: TRINITY BULLOCK MD BANKMAN: 1. AILEEN ESPINAL PREOPERATIVE DIAGNOSES: 1. Incarcerated ventral hernia, left lower abdomen 2. Chronic pain, left lower abdomen 3. History of ischemic cardiomyopathy 4. Chronic pain syndrome 5. History of tobacco abuse 6. Anxiety 7. Depression. 8. ADHD/ADD 9. Chronic obstructive pulmonary disease 10. Renal agenesis, right POSTOPERATIVE DIAGNOSES: 1. Incarcerated ventral hernia, left lower abdomen 2. Chronic pain, left lower abdomen 3. History of ischemic cardiomyopathy 4. Chronic pain syndrome 5. History of tobacco abuse 6. Anxiety 7. Depression. 8. ADHD/ADD 9. Chronic obstructive pulmonary disease 10. Renal agenesis, right 11. Incarcerated ventral hernia, left lower abdomen, 2 x 3 cm OPERATION: 1. Robotic-assisted da Sergio Xi laparoscopic repair of initial incarcerated ventral hernia 3 cm without mesh ANESTHESIA: General with local ESTIMATED BLOOD LOSS: 5 mL. SPECIMENS: Incarcerated ventral hernia sac COMPLICATIONS: None. INDICATIONS: The patient is a 51-year-old male who presents with pain and swelling along the left lower abdomen. Surgical intervention with laparoscopic versus robotic and open techniques were reviewed. Placement of mesh was also reviewed. Benefits and risks were thoroughly described. Informed consent was obtained. DESCRIPTION OF PROCEDURE: The patient was brought into the operating room and laid in supine position. After general induction, the abdomen had been prepped and draped in standard sterile fashion. Ioban draping was also placed. Prior to incision, a timeout protocol was confirmed with surgical team regarding the patient's name including procedures to be performed. The robot was primed prior to the procedure. A field block using local anesthetic was placed along hernia site including the proposed port sites. Initial incision was made with an #11 blade along the left upper quadrant. A 0 degree 5 mm laparoscopic trocar entry was performed. Diagnostic laparoscopy demonstrated an incarcerated ventral hernia of the lower abdomen was identified. A 8 mm trocar was placed along the epigastrium. An 8 mm port was placed along the right upper quadrant under direct localization. The 5-mm port was exchanged for an 8 mm robotic port. Placements of the ports were 15 cm from the target anatomy and approximately 10 cm apart. The Coupsta Xi robot was previously primed, prepped and draped then docked along the left side of the patient. I then sat at the robot Da Sergio Xi console where working arms of the robot including Bovie cautery connected to robotic scissors, vessel sealer, needle seasonal delivery driver, and graspers placed by the assistant basketball coach. The incarcerated contents was reduced as the peritoneal fat was cleaned from the abdominal wall. Next, hemostasis was checked with cautery. The hernia defect of 2-cm x 3-cm was oversewn using 2-0 VLOC. A final endoscopic imaging was obtained. All instruments and pneumoperitoneum were evacuated from the abdominal cavity. The da Sergio Xi robot was undocked from the patient. I re-scrubbed into the case for closure of incisions. The incisions were reapproximated using 4-0 Monocryl in an interrupted subcuticular fashion. Liquid glue was applied to the skin after cleansing the skin. At the end of the procedure, needle, sponge, and instrument count had been verified correct by information technology technician. The patient was taken to the postanesthesia care unit in stable condition. FINDINGS: 1. Initial ventral incarcerated hernia of the lower abdomen, 2 x 3 cm Plan - Discharge Summary Discharge Rx Participant: Yes New Discharge Prescriptions: New Ibuprofen [Motrin] 600 mg PO Q8HR PRN #20 tab PRN Reason: Pain No Action Naltrexone HCl [Revia] 50 mg PO DAILY traZODone HCL 150 mg PO HS FLUoxetine HCL [PROzac] 20 mg PO DAILY Albuterol Inhaler [Ventolin Inhaler] 1 - 2 puff INHALATION RT-Q6H PRN PRN Reason: Shortness Of Breath Pregabalin [Lyrica] 50 mg PO TID Cholecalciferol [Vitamin D3] 2,000 unit PO DAILY Tamsulosin [Flomax] 0.4 mg PO HS Discharge Medication List Albuterol Inhaler [Ventolin Inhaler] 1 - 2 puff INHALATION RT-Q6H PRN 05/14/14 [ History] FLUoxetine HCL [PROzac] 20 mg PO DAILY 05/14/14 [History] Naltrexone HCl [Revia] 50 mg PO DAILY 05/14/14 [History] traZODone HCL 150 mg PO HS 05/14/14 [History] Cholecalciferol [Vitamin D3] 2,000 unit PO DAILY 01/27/16 [History] Pregabalin [Lyrica] 50 mg PO TID 01/27/16 [History] Tamsulosin [Flomax] 0.4 mg PO HS 05/26/17 [History] Ibuprofen [Motrin] 600 mg PO Q8HR PRN #20 tab 08/11/17 [Rx] Follow up Appointment(s)/Referral(s): Trinity Bullock MD [STAFF PHYSICIAN] - 08/29/17 Patient Instructions/Handouts: Laparoscopic Herniorrhaphy (DC) Activity/Diet/Wound Care/Special Instructions: No lifting over 4 pounds in 4 weeks. May shower. No bath tub soaks. Discharge Disposition: HOME SELF-CARE
[2017-08-11] MEDS ORDERED: ALBUTEROL NEBULIZED 2.5 MG/3 ML INHALATION ONE (10:12)
[2017-08-11 10:23] VITALS: RESP 18; TEMP 98
[2017-08-11] MEDS: MEPERIDINE 50 MG/ML SYRINGE IVP ONE ×2 (10:27→10:48)
[2017-08-11 11:38] VITALS: BP 112/73; PULSE 74
[2017-08-11] MEDS ORDERED: IBUPROFEN 200 MG TAB PO ONE (11:55)
== END 2017-08-11 12:30 | disposition home or self-care (01) ==
LOC: OR 07:17
PROVIDERS: ATTEND Surgery Plastic and Reconstructive Surgery
DX: K43.6 Other and unspecified ventral hernia with obstruction, without gangrene (principal); K21.9 Gastro-esophageal reflux disease without esophagitis; I25.5 Ischemic cardiomyopathy; G89.4 Chronic pain syndrome; F17.200 Nicotine dependence, unspecified, uncomplicated; F41.9 Anxiety disorder, unspecified; F32.9 Major depressive disorder, single episode, unspecified; F90.9 Attention-deficit hyperactivity disorder, unspecified type; J44.9 Chronic obstructive pulmonary disease, unspecified; Q60.2 Renal agenesis, unspecified; M19.90 Unspecified osteoarthritis, unspecified site; Z79.899 Other long term (current) drug therapy
CPT/HCPCS: 49653; S2900; 36415; 85027; 86850; 86900; 86901; 88302

== ENCOUNTER 2017-10-10 13:52 | Emergency (ER) | payer OTHER ==
[2017-10-10 14:28] VITALS: BP 141/85; PULSE 88; RESP 18; TEMP 98.2
--- NOTE | 2017-10-10 16:09 | ED ---
General Adult HPI - General Chief complaint: Extremity Injury, Lower Stated complaint: Groin Strain Time Seen by Provider: 10/10/17 15:05 Source: patient, RN notes reviewed Mode of arrival: ambulatory Limitations: no limitations - History of Present Illness Initial comments: 52-year-old male presents from chief complaint of left groin pain. Patient states this started last night. He did admit to pushing several boxes that weighed over 100 pounds. Patient states that he had left ventral/inguinal hernia repair [address] Bull[address]. Patient states that he has pain in the region to his left scrotum and his pain is worse today. Patient denies any bulging or swelling noted. Denies any difficulty with urination or bowel movements. Denies any fever, chills. Patient denies any nausea vomiting diarrhea constipation. - Related Data Home Medications Medication Instructions Recorded Confirmed Albuterol Inhaler [Ventolin 1 - 2 puff INHALATION RT-Q6H PRN 05/14/14 08/11/17 Inhaler] FLUoxetine HCL [PROzac] 20 mg PO DAILY 05/14/14 08/11/17 Naltrexone HCl [Revia] 50 mg PO DAILY 05/14/14 08/11/17 traZODone HCL 150 mg PO HS 05/14/14 08/11/17 Cholecalciferol [Vitamin D3] 2,000 unit PO DAILY 01/27/16 08/11/17 Pregabalin [Lyrica] 50 mg PO TID 01/27/16 08/11/17 Tamsulosin [Flomax] 0.4 mg PO HS 05/26/17 08/11/17 Previous Rx's Medication Instructions Recorded Ibuprofen [Motrin] 600 mg PO Q8HR PRN #20 tab 08/11/17 Allergies Allergy/AdvReac Type Severity Reaction Status Date / Time No Known Allergies Allergy Verified 10/10/17 14:29 Review of Systems ROS Statement: Those systems with pertinent positive or pertinent negative responses have been documented in the HPI. ROS Other: All systems not noted in ROS Statement are negative. 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 WAS AN ALCOHOLIC Mother Family Medical History: Deep Vein Thrombosis (DVT), Hypertension Additional Family Medical History / Comment(s): DIVERTICULTIS, DEPRESSION General Exam Limitations: no limitations General appearance: alert, in no apparent distress Head exam: Present: atraumatic, normocephalic, normal inspection Neck exam: Present: normal inspection. Absent: tenderness, meningismus, lymphadenopathy Respiratory exam: Present: normal lung sounds bilaterally. Absent: respiratory distress, wheezes, rales, rhonchi, stridor Cardiovascular Exam: Present: regular rate, normal rhythm, normal heart sounds. Absent: systolic murmur, diastolic murmur, rubs, gallop, clicks GI/Abdominal exam: Present: soft, normal bowel sounds, other (Moderate tenderness to the left inguinal region). Absent: distended, tenderness, guarding, rebound, rigid exam: Present: normal inspection, testicular tenderness. Absent: urethral discharge, scrotal swelling, vertical testicular lie Course Vital Signs 10/10/17 14:27 Temperature 98.2 F Pulse Rate 88 Respiratory 18 Rate Blood Pressure 141/85 O2 Sat by Pulse 98 Oximetry Medical Decision Making - Medical Decision Making 52-year-old male presents from chief complaint of left inguinal pain. Patient SCROTUM AND LEFT GROIN NO OBVIOUS HERNIA NO EVIDENCE OF TORSION. PATIENT IS RECOMMENDED TO FOLLOW-UP WITH HIS SURGEON. PATIENT PROVIDED A WORK NO AT THIS TIME. PATIENT WILL TAKE [id number] TYLENOL OR MOTRIN. RETURN PARAMETERS WERE DISCUSSED. Disposition Clinical Impression: Inguinal muscle strain Disposition: HOME SELF-CARE Condition: Stable Instructions: Groin Strain (ED) Additional Instructions: Please return to the Emergency Department if symptoms worsen or any other concerns. Is patient prescribed a controlled substance at d/c from ED?: No Referrals: Epi Boyd DO [Primary Care Provider] - 1-2 days Trinity Bullock MD [STAFF PHYSICIAN] - 1-2 days Time of Disposition: 17:03
--- NOTE | 2017-10-10 16:14 | US ---
EXAMINATION TYPE: US groin LT DATE OF EXAM: 10/10/2017 COMPARISON: NONE CLINICAL HISTORY: Pain. Left groin pain after heavy pushing at work yesterday; prior bilateral hernia repair x 2 with most recent left repair 08/11/2017 At medial left groin pain: hyperechoic linear structure is noted in mid muscle image at patient's lef t medial groin pain and as compared to right groin muscle at same level; at another area of tendernes s in same 3 cm area medial left groin a lymph node is seen = 0.9 x 0.6 x 0.4cm. Left hernia repair s ite is further superolateral to patient's area of pain. IMPRESSION: Linear hyperechoic intramuscular area within the left groin is most sonographically fitt ing of fibrotic scarring. No muscular edema to suggest tear. No hernia seen sonographically.
--- NOTE | 2017-10-10 16:52 | US ---
EXAMINATION TYPE: US scrotum with doppler. Grayscale and color Doppler Duplex imaging performed of jodie thomson scrotum. DATE OF EXAM: 10/10/2017 COMPARISON: NONE CLINICAL HISTORY: Pain. Left groin pain radiating to left testicle after heavy pushing at work yester day; prior bilateral groin hernia repair x 2 with most recent repair left groin 08/11/17 EXAM MEASUREMENTS: TESTICLES: Right Testicle: 4.3 x 2.7 x 1.9 cm Left Testicle: 3.4 x 2.1 x 1.8 cm EPIDIDYMIS HEAD: Right Epididymis: 1.3 x 2.0 x 0.8 cm Left Epididymis: 0.7 x 2.4 x 1.2 cm Doppler performed to assess for testicular vascularity; good bilateral color flow and waveforms are s een. There is no evidence of testicular torsion. Right epididymal head: couple of cysts are seen approximately = 0.3 x 0.2 x 0.2cm. Left epididymal head: cyst seen = 0.3 x 0.4 x 0.3cm. Homogeneous appearance to testes. Presence of hydroceles: Small fluid area seen inferior to right testicle = 0.9 x 0.4 x 1.0cm with lo w level internal echoes noted. In left scrotal sac: left testicular appendix = 0.5 x 0.3 x 0.2cm is noted and painful here per bethany ent. Septated fluid area noted surrounding left testicle = 4.5 x 2.2 x 1.5cm with internal mobile ec hoes noted within hydrocele. Presence of varicoceles: not seen bilaterally. IMPRESSION: There are small bilateral hydroceles. No testicular torsion or mass. No hernia sac seen.
== END 2017-10-10 17:06 | disposition home or self-care (01) ==
LOC: EC 13:52
DX: S76.212A Strain of adductor muscle, fascia and tendon of left thigh, initial encounter (principal); J44.9 Chronic obstructive pulmonary disease, unspecified; M19.90 Unspecified osteoarthritis, unspecified site; F41.9 Anxiety disorder, unspecified; F32.9 Major depressive disorder, single episode, unspecified; F17.200 Nicotine dependence, unspecified, uncomplicated; Z98.890 Other specified postprocedural states; Z79.899 Other long term (current) drug therapy; X50.0XXA Overexertion from strenuous movement or load, initial encounter; Y92.69 Other specified industrial and construction area as the place of occurrence of the external cause; Y99.0 Civilian activity done for income or pay
CPT/HCPCS: 76870; 93975; 99283

== ENCOUNTER 2018-02-18 17:01 | Observation (INO) | payer OTHER ==
[2018-02-18] MEDS ORDERED: NITROGLYCERIN SL TABS 0.4 MG TAB SUBLINGUAL STA (17:25)
[2018-02-18] MEDS ORDERED: SODIUM CHLORIDE 0.9% 500 ML 500 ML IV STA (17:25)
[2018-02-18] MEDS ORDERED: ASPIRIN 81 MG PO STA (17:25)
--- NOTE | 2018-02-18 17:29 | ED ---
General Adult HPI - General Chief complaint: Nausea/Vomiting/Diarrhea Stated complaint: Nauseated Time Seen by Provider: 02/18/18 17:18 Source: patient Mode of arrival: wheelchair Limitations: no limitations - History of Present Illness Initial comments: This is a pleasant 52-year-old male who presents emergency department complaining of shortness of breath, sharp left-sided chest pain, nausea and vomiting. Symptoms started 15 minutes ago after the patient was cleaning a bathroom at home. Patient was exposed to dust and chlorine. Patient did exert and did do some lifting. Patient then felt nauseated and somewhat short of breath. Patient then developed left-sided chest pain which is still constant. Pain located left side of his chest. Patient does have a significant cardiac history in the form of SVT. Patient is status post cardiac ablation by Dr. Petersen. Patient states he went out to smoke a cigarette after cleaning the bathroom and that's when the symptoms started. Patient denies any hematemesis or coffee-ground emesis. No abdominal pain. No pain in the back. There is no radiation of pain. No alleviating or exacerbating factors. Patient has had no recent cardiac testing. Patient did have a cardiac catheterization about 2 or 3 years ago. Patient currently treated for sinusitis with Augmentin. However the patient has not had a fever. No changes in vision or hearing. No headache. Patient is getting lightheaded. Patient also has a history of COPD. No history of blood clots. - Related Data Home Medications Medication Instructions Recorded Confirmed Albuterol Inhaler [Ventolin 1 - 2 puff INHALATION RT-Q6H PRN 05/14/14 08/11/17 Inhaler] FLUoxetine HCL [PROzac] 20 mg PO DAILY 05/14/14 08/11/17 Naltrexone HCl [Revia] 50 mg PO DAILY 05/14/14 08/11/17 traZODone HCL 150 mg PO HS 05/14/14 08/11/17 Cholecalciferol [Vitamin D3] 2,000 unit PO DAILY 01/27/16 08/11/17 Pregabalin [Lyrica] 50 mg PO TID 01/27/16 08/11/17 Tamsulosin [Flomax] 0.4 mg PO HS 05/26/17 08/11/17 Previous Rx's Medication Instructions Recorded Ibuprofen [Motrin] 600 mg PO Q8HR PRN #20 tab 08/11/17 Allergies Allergy/AdvReac Type Severity Reaction Status Date / Time No Known Allergies Allergy Verified 02/18/18 17:06 Review of Systems ROS Statement: Those systems with pertinent positive or pertinent negative responses have been documented in the HPI. ROS Other: All systems not noted in ROS Statement are negative. 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, History of Any Multi-Drug Resistant Organisms: None Reported Past Surgical History: Cardiac Ablation, Heart Catheterization, Hernia Repair Additional Past Surgical History / Comment(s): JOSE INGUINAL HERNIA REPAIR, JOSE CARPAL TUNNEL, [facility]/TOOTH EXTRACTION Past Anesthesia/Blood Transfusion Reactions: No Reported Reaction Past Psychological History: ADD/ADHD, Anxiety, Depression Smoking Status: Current every day smoker Past Alcohol Use History: None Reported Past Drug Use History: None Reported - Past Family History Father Family Medical History: Unable to Obtain Additional Family Medical History / Comment(s): PASSED WHEN PT WAS 7 YEARS OLD. WAS AN ALCOHOLIC Mother Family Medical History: Deep Vein Thrombosis (DVT), Hypertension Additional Family Medical History / Comment(s): DIVERTICULTIS, DEPRESSION General Exam - General Exam Comments Initial Comments: Is a thin but healthy-appearing 52-year-old male in moderate distress secondary to current symptoms peripheral perfusion appears adequate, capillary refill less than 2 seconds. Limitations: no limitations General appearance: alert, in no apparent distress Head exam: Present: atraumatic, normocephalic, normal inspection Eye exam: Present: normal appearance, PERRL, EOMI. Absent: scleral icterus, conjunctival injection, periorbital swelling ENT exam: Present: normal exam, normal oropharynx, mucous membranes moist, TM's normal bilaterally, normal external ear exam Neck exam: Present: normal inspection. Absent: tenderness, meningismus, lymphadenopathy Respiratory exam: Present: normal lung sounds bilaterally, other (No wheezing was noted. Good respiratory effort her entry. Patient's oxygen saturation on room air was 98%.). Absent: respiratory distress, wheezes, rales, rhonchi, stridor, chest wall tenderness, accessory muscle use Cardiovascular Exam: Present: regular rate, normal rhythm, normal heart sounds. Absent: systolic murmur, diastolic murmur, rubs, gallop, clicks GI/Abdominal exam: Present: soft, normal bowel sounds. Absent: distended, tenderness, guarding, rebound, rigid Extremities exam: Present: normal inspection, full ROM, normal capillary refill. Absent: tenderness, pedal edema, joint swelling, calf tenderness Back exam: Present: normal inspection Neurological exam: Present: alert, oriented X3, CN II-XII intact Psychiatric exam: Present: normal affect, normal mood Skin exam: Present: warm, dry, intact, normal color. Absent: rash Course Vital Signs 02/18/18 02/18/18 02/18/18 17:03 18:00 18:30 Temperature 98.5 F Pulse Rate 110 H 60 50 L Respiratory 18 18 15 Rate Blood Pressure 127/73 134/81 119/79 O2 Sat by Pulse 98 100 98 Oximetry 02/18/18 02/18/18 02/18/18 19:00 19:30 19:38 Temperature 97.6 F Pulse Rate 49 L 52 L Respiratory 19 23 Rate Blood Pressure 110/69 115/76 O2 Sat by Pulse 99 94 L Oximetry - Reevaluation(s) Reevaluation #1: 02/18/18 19:33 Patient reevaluated is essentially pain-free. Patient states that nitroglycerin helped quite a bit. Patient has been given aspirin as well. EKG Findings - EKG Comments: EKG Findings:: EKG done at 1720 reveals normal sinus rhythm with sinus arrhythmia, minimal voltage criteria for LVH, nonspecific ST abnormality, normal intervals, rate 63, normal minimal baseline artifact Medical Decision Making - Medical Decision Making Case was discussed with the on-call hospitalist by Dr. Still. Patient will be admitted under Dr. Lyn's group. Plan discussed with the patient. Patient is feeling much better. Patient is pain-free. Stable for admission. Second troponin was ordered. - Lab Data Result diagrams: 02/18/18 17:20 02/18/18 17:20 Lab Results 02/18/18 02/18/18 02/18/18 Range/Units 17:20 17:20 17:20 WBC 10.4 (3.8-10.6) k/uL RBC 5.30 (4.30-5.90) m/uL Hgb 15.5 (13.0-17.5) gm/dL Hct 47.3 (39.0-53.0) % MCV 89.1 (80.0-100.0) fL MCH 29.3 (25.0-35.0) pg MCHC 32.8 (31.0-37.0) g/dL RDW 12.8 (11.5-15.5) % Plt Count 205 (150-450) k/uL Neutrophils % 54 % Lymphocytes % 34 % Monocytes % 7 % Eosinophils % 2 % Basophils % 0 % Neutrophils # 5.6 (1.3-7.7) k/uL Lymphocytes # 3.6 (1.0-4.8) k/uL Monocytes # 0.7 (0-1.0) k/uL Eosinophils # 0.2 (0-0.7) k/uL Basophils # 0.0 (0-0.2) k/uL PT (9.0-12.0) sec INR (<1.2) APTT (22.0-30.0) sec D-Dimer (<0.60) mg/L FEU Sodium 138 (137-145) mmol/L Potassium 4.0 (3.5-5.1) mmol/L Chloride 107 (98-107) mmol/L Carbon Dioxide 20 L (22-30) mmol/L Anion Gap 11 mmol/L BUN 19 (9-20) mg/dL Creatinine 1.10 (0.66-1.25) mg/dL Est GFR (CKD-EPI)AfAm 90 (>60 ml/min/1.73 sqM) Est GFR (CKD-EPI)NonAf 77 (>60 ml/min/1.73 sqM) Glucose 117 H (74-99) mg/dL Calcium 10.1 (8.4-10.2) mg/dL Magnesium 1.8 (1.6-2.3) mg/dL Total Bilirubin 0.5 (0.2-1.3) mg/dL AST 20 (17-59) U/L ALT 25 (21-72) U/L Alkaline Phosphatase 86 (38-126) U/L Total Creatine Kinase 104 (55-170) U/L CK-MB (CK-2) 1.0 (0.0-2.4) ng/mL CK-MB (CK-2) Rel Index 1.0 Troponin I <0.012 (0.000-0.034) ng/mL Total Protein 7.2 (6.3-8.2) g/dL Albumin 4.4 (3.5-5.0) g/dL Lipase 158 (23-300) U/L 02/18/18 Range/Units 17:20 WBC (3.8-10.6) k/uL RBC (4.30-5.90) m/uL Hgb (13.0-17.5) gm/dL Hct (39.0-53.0) % MCV (80.0-100.0) fL MCH (25.0-35.0) pg MCHC (31.0-37.0) g/dL RDW (11.5-15.5) % Plt Count (150-450) k/uL Neutrophils % % Lymphocytes % % Monocytes % % Eosinophils % % Basophils % % Neutrophils # (1.3-7.7) k/uL Lymphocytes # (1.0-4.8) k/uL Monocytes # (0-1.0) k/uL Eosinophils # (0-0.7) k/uL Basophils # (0-0.2) k/uL PT 9.9 (9.0-12.0) sec INR 1.0 (<1.2) APTT 20.8 L (22.0-30.0) sec D-Dimer 0.23 (<0.60) mg/L FEU Sodium (137-145) mmol/L Potassium (3.5-5.1) mmol/L Chloride (98-107) mmol/L Carbon Dioxide (22-30) mmol/L Anion Gap mmol/L BUN (9-20) mg/dL Creatinine (0.66-1.25) mg/dL Est GFR (CKD-EPI)AfAm (>60 ml/min/1.73 sqM) Est GFR (CKD-EPI)NonAf (>60 ml/min/1.73 sqM) Glucose (74-99) mg/dL Calcium (8.4-10.2) mg/dL Magnesium (1.6-2.3) mg/dL Total Bilirubin (0.2-1.3) mg/dL AST (17-59) U/L ALT (21-72) U/L Alkaline Phosphatase (38-126) U/L Total Creatine Kinase (55-170) U/L CK-MB (CK-2) (0.0-2.4) ng/mL CK-MB (CK-2) Rel Index Troponin I (0.000-0.034) ng/mL Total Protein (6.3-8.2) g/dL Albumin (3.5-5.0) g/dL Lipase (23-300) U/L Disposition Clinical Impression: Acute chest pain, Dyspnea Disposition: ADMITTED IP TO THIS [facility] Condition: Stable Is patient prescribed a controlled substance at d/c from ED?: No Referrals: Epi Boyd DO [Primary Care Provider] - 1-2 days Time of Disposition: 20:22 Decision to Admit Reason: Admit from EC Decision Date: 02/18/18 Decision Time: 19:33
[2018-02-18] MEDS ORDERED: ONDANSETRON 4 MG/2 ML VIAL IVP STA (17:31)
[2018-02-18 17:46] LABS: Basophils % (A) 0 %; Eosinophils # (A) 0.2 k/uL (0-0.7); Eosinophils % (A) 2 %; HCT 47.3 % (39.0-53.0); HGB 15.5 gm/dL (13.0-17.5); Lymphocytes # (A) 3.6 k/uL (1.0-4.8); Lymphocytes % (A) 34 %; MCH 29.3 pg (25.0-35.0); MCHC 32.8 g/dL (31.0-37.0); MCV 89.1 fL (80.0-100.0); Mean Platelet Volume 9.1; Monocytes # (A) 0.7 k/uL (0-1.0); Monocytes % (A) 7 %; Neutrophils # (A) 5.6 k/uL (1.3-7.7); Neutrophils % (A) 54 %; Platelet Count 205 k/uL (150-450); RDW 12.8 % (11.5-15.5); WBC 10.4 k/uL (3.8-10.6)
[2018-02-18 18:02] LABS: Creatine Kinase 104 U/L (55-170)
[2018-02-18 18:04] LABS: Albumin 4.4 g/dL (3.5-5.0); Calcium 10.1 mg/dL (8.4-10.2); Magnesium 1.8 mg/dL (1.6-2.3); Total Bilirubin 0.5 mg/dL (0.2-1.3); Total Protein 7.2 g/dL (6.3-8.2)
--- NOTE | 2018-02-18 18:04 | XR ---
EXAMINATION TYPE: XR chest 1V portable DATE OF EXAM: 02/18/2018 COMPARISON: 07/29/2016 HISTORY: Chest pain TECHNIQUE: Single frontal view of the chest is obtained. FINDINGS: Heart and mediastinum are normal. Lungs are clear. Diaphragm is normal. IMPRESSION: Normal chest. No change.
[2018-02-18 18:09] LABS: D-Dimer 0.23 mg/L FEU (<0.60); Prothrombin Time 9.9 sec (9.0-12.0)
[2018-02-18 18:10] LABS: Partial Thromboplastin Time 20.8 sec (22.0-30.0)
[2018-02-18 18:12] LABS: Troponin I <0.012 ng/mL (0.000-0.034)
[2018-02-18] MEDS ORDERED: NITROGLYCERIN OINT 1 INCH/GM PACKET TOPICAL STA (19:33)
[2018-02-18] MEDS ORDERED: ACETAMINOPHEN TAB 325 MG TAB PO PRN (20:22)
[2018-02-18] MEDS ORDERED: MORPHINE SULFATE 2 MG/ML SYRINGE IV PRN (20:22)
[2018-02-18] MEDS ORDERED: NALOXONE 0.4 MG/ML 1 ML VIAL IV PRN (20:22)
[2018-02-18] MEDS: SODIUM CHLORIDE 0.9% 1,000 ML IV SCH (20:57)
[2018-02-18 22:19] VITALS: BMI 22.7
--- NOTE | 2018-02-19 11:03 | ECHOF ---
Referral Reason:sob, dizzy MEASUREMENTS -------- HEIGHT: 175.3 cm WEIGHT: 69.9 kg BP: RVIDd: 2.8 cm (< 3.3) IVSd: 0.8 cm (0.6 - 1.1) LVIDd: 4.0 cm (3.9 - 5.3) LVPWd: 0.9 cm (0.6 - 1.1) IVSs: 1.3 cm LVIDs: 2.6 cm LVPWs: 1.4 cm LA Diam: 2.8 cm (2.7 - 3.8) Ao Diam: 2.8 cm (2.0 - 3.7) AV Cusp: 1.9 cm (1.5 - 2.6) LA Diam: 3.5 cm (2.7 - 3.8) MV EXCURSION: 14.967 mm (> 18.000) MV EF SLOPE: 89 mm/s (70 - 150) EPSS: 0.5 cm MV E Erickson: 0.75 m/s MV DecT: 154 ms MV A Erickson: 0.62 m/s MV E/A Ratio: 1.22 RAP: 5.00 mmHg RVSP: 26.10 mmHg FINDINGS -------- Sinus rhythm. This was a technically adequate study. LV size, wall thickness and systolic function are normal, with an EF greater than 55%. The left roger tricular size is normal. The right ventricle is normal in size. The left atrial size is normal. The right atrial size is normal. The aortic valve is trileaflet, and appears structurally normal. No aortic stenosis or regurgitation. Mild mitral regurgitation is present. Mild tricuspid regurgitation present. There is no evidence of pulmonary hypertension. The right v entricular systolic pressure, as measured by Doppler, is 26.10mmHg. There is no pulmonic regurgitation present. The aortic root size is normal. There is no pericardial effusion. CONCLUSIONS -------- 1. LV size, wall thickness and systolic function are normal, with an EF greater than 55%. 2. The left ventricular size is normal. 3. The right ventricle is normal in size. 4. The left atrial size is normal. 5. The right atrial size is normal. 6. The aortic valve is trileaflet, and appears structurally normal. No aortic stenosis or regurgitati on. 7. Mild mitral regurgitation is present. 8. Mild tricuspid regurgitation present. 9. There is no evidence of pulmonary hypertension. 10. The right ventricular systolic pressure, as measured by Doppler, is 26.10mmHg. 11. There is no pulmonic regurgitation present. 12. The aortic root size is normal. 13. There is no pericardial effusion. WATCH INSPECTOR: Margaret Simpson RDCS
--- NOTE | 2018-02-19 11:33 | P.CRDCN ---
History of Present Illness History of present illness: This is a pleasant 52-year-old male past medical history significant for SVT status post ablation, COPD, gastroesophageal reflux disease and chronic daily nicotine dependence. He follows with Dr. Petersen in the office. we have asked to see him in consultation for chest pain. He states yesterday he was working on bathroom remodel tearing out the floors and bleaching the sub-floor. He went to take a break outside and smoke a cigarette. After coming back inside he started feeling lightheaded and nauseated. He laid down on the floor to rest. The nausea became overwhelming and he had to go outside and vomit. He continued to feel light headed, nauseated and started with mild shortness of breath, arm tingling and facial flushing. He has been taking Augmentin for the last week for a sinus infection, which also has been causing some intermittent dizziness. He denies actual symptoms of chest discomfort although he states he has a discomfort in his chest that he has had ever since undergoing an ablation in 2011. That time he underwent coronary angiography which revealed normal coronary arteries with no obstructive disease. His symptoms have resolved he is currently denying any symptoms of chest pain, shortness of breath, dizziness or palpitations. EKG reveals sinus mechanism with no acute ST or T-wave abnormalities with poor R -wave progression. Chest x-ray is negative for an acute cardiopulmonary process. Laboratory data reviewed, hemoglobin 15.5, platelets 205, d-dimer 0.23, sodium 138, potassium 4.0, magnesium 1.8, creatinine 1.1, cardiac enzymes negative 2, TSH 0.175. He takes no daily cardiac medications. At the time of my exam: CONSTITUTIONAL: Denies fever. Denies chills. EYES: Denies blurred vision. Denies vision changes. Denies eye pain. EARS, NOSE, MOUTH & THROAT: Denies headache. Denies sore throat. Denies ear pain. CARDIOVASCULAR: Denies chest pain. Denies shortness of breath. Denies orthopnea. Denies PND. Denies palpitations. RESPIRATORY: Denies cough. GASTROINTESTINAL: Denies abdominal pain. Denies diarrhea. Denies constipation. Denies nausea. Denies vomiting. MUSCULOSKELETAL: Denies myalgias. INTEGUMENTARY: Denies pruitis. Denies rash. NEUROLOGIC: Denies numbness. Denies tingling. Denies weakness. PSYCHIATRIC: Denies anxiety. Denies depression. ENDOCRINE: Denies fatigue. Denies weight change. Denies polydipsia. Denies polyurina. GENITOURINARY: Denies burning, hematuria or urgency with micturation. HEMATOLOGIC: Denies history of anemia. Denies bleeding. Blood pressure 101/57 heart rate 65 afebrile maintaining oxygen saturation on room air GENERAL: This is a 52-year-old male in no apparent distress at the time of my examination. HEENT: Head is atraumatic, normocephalic. Pupils are equal, round. Sclerae anicteric. Conjunctivae are clear. Mucous membranes of the mouth are moist. Neck is supple. There is no jugular venous distention. No carotid bruit is heard. LUNGS: Clear to auscultation no wheezes, rales or rhonchi. No chest wall tenderness is noted on palpation or with deep breathing. HEART: Regular rate and rhythm without murmurs, rubs or gallops. S1 and S2 heard. ABDOMEN: Soft, nontender. Bowel sounds are heard. No organomegaly noted. EXTREMITIES: No evidence of peripheral edema and no calf tenderness noted. VASCULAR: Radial and dorsalis pedis pulses palpated, no evidence of clubbing. NEUROLOGIC: Patient is awake, alert and oriented x3. ASSESSMENT Vasovagal reaction secondary to orthostatic hypotension as well as possibility of noxious substance inhalation History of SVT ablation 2011 Chronic nicotine dependence PLAN Obtain 2-D echocardiogram and upper study to assess cardiac structure and function. Requested orthostatic vital signs and TSH be checked. Both have been reviewed. Primary team to manage thyroid. Advised him to increase PO intake of water and change positions slowly. Wear a mask when working with any chemicals. Smoking cessation recommended. Stable from a cardiac perspective, follow up with Dr. Petersen in 2-3 months. Thank you kindly for this consultation. Nurse Practitioner note has been reviewed, I agree with a documented findings and plan of care. Patient was seen and examined. 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, History of Any Multi-Drug Resistant Organisms: None Reported Past Surgical History: Cardiac Ablation, Heart Catheterization, Hernia Repair Additional Past Surgical History / Comment(s): JOSE INGUINAL HERNIA REPAIR, JOSE CARPAL TUNNEL release, Past Anesthesia/Blood Transfusion Reactions: No Reported Reaction Smoking Status: Current every day smoker - Past Family History Father Family Medical History: Unable to Obtain Additional Family Medical History / Comment(s): PASSED WHEN PT WAS 7 YEARS OLD. WAS AN ALCOHOLIC Mother Family Medical History: Deep Vein Thrombosis (DVT), Hypertension Additional Family Medical History / Comment(s): DIVERTICULTIS, DEPRESSION Medications and Allergies Home Medications Medication Instructions Recorded Confirmed Type Albuterol Inhaler [Ventolin 1 - 2 puff INHALATION RT-Q6H PRN 05/14/14 02/18/18 History Inhaler] Naltrexone HCl [Revia] 50 mg PO DAILY 05/14/14 02/18/18 History traZODone HCL 150 mg PO HS PRN 05/14/14 02/18/18 History Pregabalin [Lyrica] 50 mg PO DAILY 01/27/16 02/18/18 History Tamsulosin [Flomax] 0.4 mg PO DAILY 05/26/17 02/18/18 History Albuterol Nebulized [Ventolin 2.5 mg INHALATION RT-QID PRN 02/18/18 02/18/18 History Nebulized] Amoxic-Pot Clav 875-125Mg 1 tab PO BID 02/18/18 02/18/18 History [Augmentin 875-125] Cetirizine HCl/Pseudoephedrine 1 tab PO Q12H PRN 02/18/18 02/18/18 History [Zyrtec-D Tablet] FLUoxetine HCL [PROzac] 30 mg PO DAILY 02/18/18 02/18/18 History Allergies Allergy/AdvReac Type Severity Reaction Status Date / Time No Known Allergies Allergy Verified 02/18/18 22:03 Physical Exam Vitals: Vital Signs Temp Pulse Pulse Resp BP BP Pulse Ox 02/19/18 04:00 98.1 F 65 18 101/57 97 02/18/18 23:50 97.8 F 67 18 96/52 97 02/18/18 22:26 18 02/18/18 22:09 98.4 F 57 L 18 137/80 98 02/18/18 21:50 97.6 F 51 L 16 114/78 98 02/18/18 20:56 97.6 F 50 L 14 115/82 98 02/18/18 19:38 97.6 F 02/18/18 19:30 52 L 23 115/76 94 L 02/18/18 19:00 49 L 19 110/69 99 02/18/18 18:30 50 L 15 119/79 98 02/18/18 18:00 60 18 134/81 100 02/18/18 17:03 98.5 F 110 H 18 127/73 98 Intake and Output 02/18/18 02/19/18 02/19/18 22:59 06:59 14:59 Other: Weight 69.9 kg Results 02/18/18 17:20 02/18/18 17:20 Cardiac Enzymes 02/18/18 02/18/18 02/18/18 Range/Units 17:20 17:20 17:20 WBC 10.4 (3.8-10.6) k/uL RBC 5.30 (4.30-5.90) m/uL Hgb 15.5 (13.0-17.5) gm/dL Hct 47.3 (39.0-53.0) % MCV 89.1 (80.0-100.0) fL MCH 29.3 (25.0-35.0) pg MCHC 32.8 (31.0-37.0) g/dL RDW 12.8 (11.5-15.5) % Plt Count 205 (150-450) k/uL Neutrophils % 54 % Lymphocytes % 34 % Monocytes % 7 % Eosinophils % 2 % Basophils % 0 % Neutrophils # 5.6 (1.3-7.7) k/uL Lymphocytes # 3.6 (1.0-4.8) k/uL Monocytes # 0.7 (0-1.0) k/uL Eosinophils # 0.2 (0-0.7) k/uL Basophils # 0.0 (0-0.2) k/uL PT (9.0-12.0) sec INR (<1.2) APTT (22.0-30.0) sec D-Dimer (<0.60) mg/L FEU Sodium 138 (137-145) mmol/L Potassium 4.0 (3.5-5.1) mmol/L Chloride 107 (98-107) mmol/L Carbon Dioxide 20 L (22-30) mmol/L Anion Gap 11 mmol/L BUN 19 (9-20) mg/dL Creatinine 1.10 (0.66-1.25) mg/dL Est GFR (CKD-EPI)AfAm 90 (>60 ml/min/1.73 sqM) Est GFR (CKD-EPI)NonAf 77 (>60 ml/min/1.73 sqM) Glucose 117 H (74-99) mg/dL Calcium 10.1 (8.4-10.2) mg/dL Magnesium 1.8 (1.6-2.3) mg/dL Total Bilirubin 0.5 (0.2-1.3) mg/dL AST 20 (17-59) U/L ALT 25 (21-72) U/L Alkaline Phosphatase 86 (38-126) U/L Total Creatine Kinase 104 (55-170) U/L CK-MB (CK-2) 1.0 (0.0-2.4) ng/mL CK-MB (CK-2) Rel Index 1.0 Troponin I <0.012 (0.000-0.034) ng/mL Total Protein 7.2 (6.3-8.2) g/dL Albumin 4.4 (3.5-5.0) g/dL Lipase 158 (23-300) U/L 02/18/18 Range/Units 17:20 WBC (3.8-10.6) k/uL RBC (4.30-5.90) m/uL Hgb (13.0-17.5) gm/dL Hct (39.0-53.0) % MCV (80.0-100.0) fL MCH (25.0-35.0) pg MCHC (31.0-37.0) g/dL RDW (11.5-15.5) % Plt Count (150-450) k/uL Neutrophils % % Lymphocytes % % Monocytes % % Eosinophils % % Basophils % % Neutrophils # (1.3-7.7) k/uL Lymphocytes # (1.0-4.8) k/uL Monocytes # (0-1.0) k/uL Eosinophils # (0-0.7) k/uL Basophils # (0-0.2) k/uL PT 9.9 (9.0-12.0) sec INR 1.0 (<1.2) APTT 20.8 L (22.0-30.0) sec D-Dimer 0.23 (<0.60) mg/L FEU Sodium (137-145) mmol/L Potassium (3.5-5.1) mmol/L Chloride (98-107) mmol/L Carbon Dioxide (22-30) mmol/L Anion Gap mmol/L BUN (9-20) mg/dL Creatinine (0.66-1.25) mg/dL Est GFR (CKD-EPI)AfAm (>60 ml/min/1.73 sqM) Est GFR (CKD-EPI)NonAf (>60 ml/min/1.73 sqM) Glucose (74-99) mg/dL Calcium (8.4-10.2) mg/dL Magnesium (1.6-2.3) mg/dL Total Bilirubin (0.2-1.3) mg/dL AST (17-59) U/L ALT (21-72) U/L Alkaline Phosphatase (38-126) U/L Total Creatine Kinase (55-170) U/L CK-MB (CK-2) (0.0-2.4) ng/mL CK-MB (CK-2) Rel Index Troponin I (0.000-0.034) ng/mL Total Protein (6.3-8.2) g/dL Albumin (3.5-5.0) g/dL Lipase (23-300) U/L Coagulation 02/18/18 Range/Units 17:20 PT 9.9 (9.0-12.0) sec APTT 20.8 L (22.0-30.0) sec CBC 02/18/18 Range/Units 17:20 WBC 10.4 (3.8-10.6) k/uL RBC 5.30 (4.30-5.90) m/uL Hgb 15.5 (13.0-17.5) gm/dL Hct 47.3 (39.0-53.0) % Plt Count 205 (150-450) k/uL Comprehensive Metabolic Panel 02/18/18 Range/Units 17:20 Sodium 138 (137-145) mmol/L Potassium 4.0 (3.5-5.1) mmol/L Chloride 107 (98-107) mmol/L Carbon Dioxide 20 L (22-30) mmol/L BUN 19 (9-20) mg/dL Creatinine 1.10 (0.66-1.25) mg/dL Glucose 117 H (74-99) mg/dL Calcium 10.1 (8.4-10.2) mg/dL AST 20 (17-59) U/L ALT 25 (21-72) U/L Alkaline Phosphatase 86 (38-126) U/L Total Protein 7.2 (6.3-8.2) g/dL Albumin 4.4 (3.5-5.0) g/dL Current Medications Generic Name Dose Route Start Last Admin Trade Name Freq PRN Reason Stop Dose Admin Acetaminophen 650 mg 02/18/18 20:22 Tylenol Tab PO Q6HR PRN Mild Pain or Fever > 100.5 Sodium Chloride 1,000 mls @ 20 mls/hr 02/18/18 20:30 02/18/18 20:57 Saline 0.9% IV 20 mls/hr .Q24H AMANDA Administration Morphine Sulfate 2 mg 02/18/18 20:22 Morphine Sulfate (Inj) IV Q4HR PRN Severe Pain Naloxone HCl 0.2 mg 02/18/18 20:22 Narcan IV Q2M PRN Opioid Reversal Intake and Output 02/18/18 02/19/18 02/19/18 22:59 06:59 14:59 Other: Weight 69.9 kg 02/18/18 17:20 02/18/18 17:20
[2018-02-19] MEDS ORDERED: ALBUTEROL NEBULIZED 2.5 MG/3 ML INHALATION PRN (12:22)
[2018-02-19] MEDS ORDERED: traZODone HCL 50 MG TAB PO PRN (12:22)
[2018-02-19 12:44] LABS: T4, Free (Free Thyroxine) 1.32 ng/dL (0.78-2.19)
[2018-02-19 13:10] LABS: Hemoglobin A1C 5.5 % (4.0-6.0)
[2018-02-19] MEDS: NALTREXONE HCL 50 MG TAB PO SCH (13:40)
[2018-02-19] MEDS: PREGABALIN 50 MG CAP PO SCH (13:41)
[2018-02-19] MEDS: AMOXIC-POT CLAV 875-125MG 1 EACH TAB PO SCH ×2 (13:41→20:48)
[2018-02-19] MEDS: TAMSULOSIN 0.4 MG CAP.ER.24H PO SCH (13:41)
[2018-02-19] MEDS: FLUoxetine HCL 10 MG CAP PO SCH (13:41)
[2018-02-19] MEDS: BUDESONIDE 1 MG/2 ML NEBU INHALATION SCH ×2 (15:52→19:12)
[2018-02-19] MEDS: IPRATROPIUM-ALBUTEROL 3 ML NEB INHALATION SCH ×2 (15:59→19:12)
[2018-02-19] MEDS: methylPREDNISolone SOD SUCCI 40 MG/ML 1 ML VIAL IV SCH ×2 (16:15→23:38)
[2018-02-19] MEDS: ENOXAPARIN 40 MG/0.4 ML SYRINGE SQ SCH (17:53)
--- NOTE | 2018-02-19 18:10 | HP ---
HISTORY AND PHYSICAL DATE OF ADMISSION: February 18, 2018. DATE OF SERVICE: February 19, 2018. PRESENTING COMPLAINT: Short of breath. HISTORY OF PRESENTING COMPLAINT: A very pleasant 52-year-old patient whose PCP is Dr. Boyd. The patient's chronic stable medical conditions include osteoarthritis, unilateral duplicate kidney and chronic nicotine dependence. 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 He pulled out the linoleum floor and the wood and fixing things around. There was bleach and chemicals he had used. He then stepped out in the cold. Did smoke a cigarette. Subsequently, patient started could not breathe, became tight in the chest, numbness and tingling in the arms and feet, dizzy, lightheaded and was brought into the ER. No cough. No precordial pain. No sweating. The patient also was admitted for workup from the ER from Cardiology. Denied any fever and chills. Still feeling a bit tired and rundown. REVIEW OF SYSTEMS: CONSTITUTIONAL: Weak and tired. HEENT none. RESPIRATORY as above. CARDIOVASCULAR as above. No edema. GASTROINTESTINAL: Heartburn. GENITOURINARY none. MUSCULOSKELETAL: Arthritic pain in many joints. DERMATOLOGICAL, HEMATOLOGICAL, LYMPHATICS: None. PSYCHIATRY: None. NEUROLOGICAL: None. Nil focal. PAST MEDICAL HISTORY: COPD, GERD, osteoarthritis, SVT, both the kidneys on the left side. PAST SURGICAL HISTORY: Cardiac ablation, cardiac catheterization, bilateral inguinal hernia repair, bilateral carpal tunnel release. PSYCH HISTORY: ADHD, anxiety, depression. SOCIAL HISTORY: The patient is smoking currently half a pack a day, was up to 2 packs a day, smoking for close to 38 years. No alcohol. 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 Lives with his . No recreational drugs. FAMILY HISTORY: Reviewed, noncontributory to presentation. HOME MEDICATIONS: 1. Ventolin 2.5 q.i.d. p.r.n. inhaler 1-2 puffs q.6h p.r.n. 2. Prozac 30 mg p.o. daily. 3. Trazodone 150 mg q.h.s. p.r.n. 4. Flomax 0.4 mg p.o. daily. 5. Lyrica 50 mg p.o. daily. 6. ReVia 50 mg p.o. daily. 7. Zyrtec-D 1 tab q.12h p.r.n. 8. Augmentin 875 1 tablet p.o. b.i.d. for sinusitis. ALLERGIES: None. PHYSICAL EXAMINATION: VITAL SIGNS: Vital signs on presentation, temperature 98.5, pulse 60, respiratory 18, blood pressure 134/81, pulse ox 100 percent on room air. GENERAL APPEARANCE: Average built, sitting up, tired appearing. EYES: Pupils are equal. Conjunctivae normal. HEENT: External apperance of nose and ears normal. Oral cavity normal. NECK: JVD not raised. Mass not palpable. RESPIRATORY: Effort increased. LUNGS: Diminished breath sounds. Prolonged expiration. CARDIOVASCULAR: 1st and 2nd sounds, no edema. ABDOMEN: Soft, nontender. Liver and spleen not palpable. LYMPHATICS: No lymph nodes palpable in neck or axillae. PSYCHIATRY: Alert and oriented x3. Mood and affect slightly anxious-appearing. NEUROLOGICAL: Pupils equal. Cranial nerves grossly intact. Power and sensation grossly intact. INVESTIGATIONS: White count 10.4, hemoglobin 15.5, platelets 205, potassium 4.0, BUN 19, creatinine 1.10, troponin I less than 0.12 x 3. TSH 0.175, free T4 1.32. EKG tracing personally reviewed by me shows normal sinus rhythm. Chest x-ray film, personally reviewed by me shows a bit of a tubular heart with hyperinflated lungs was a portable film, 2D echocardiogram showed the EF of 55%. ASSESSMENT: 1. Acute chronic obstructive pulmonary disease exacerbation secondary in a smoker after exposure to chemicals from cleaning solvent chemicals. 2. Chronic nicotine dependence, patient is a cigarette smoker. 3. Chest pressure, likely from underlying chronic obstructive pulmonary disease exacerbation. Doubt cardiac cause. 4. The patient has both the kidneys on one side. 5. Gastroesophageal reflux disease. 6. Depression, anxiety not otherwise specified. PLAN: Patient will be started on IV steroids, inhaled steroids, bronchodilators. Home medications are resumed. Cardiology was consulted. The patient will be given a nicotine patch. The patient probably will be ready to go home in 24 hours. Smoking cessation counseling was done at length with the patient, told about the effects, especially told about the effect on the lungs and will be given a nicotine patch. More than 3 minutes was spent on this aspect of the case. Care was discussed with the patient and the . Copy to Dr. Boyd. MMODL / IJN: [id number] /
[2018-02-20] MEDS: IPRATROPIUM-ALBUTEROL 3 ML NEB INHALATION SCH ×5 (00:59→15:40)
[2018-02-20] MEDS: SODIUM CHLORIDE 0.9% 1,000 ML IV SCH (02:00)
[2018-02-20 07:02] LABS: Glucose,Whole Blood 132 mg/dL (75-99)
[2018-02-20] MEDS: BUDESONIDE 1 MG/2 ML NEBU INHALATION SCH (07:56)
[2018-02-20 08:04] VITALS: RESP 16
[2018-02-20] MEDS: methylPREDNISolone SOD SUCCI 40 MG/ML 1 ML VIAL IV SCH (08:04)
[2018-02-20] MEDS: AMOXIC-POT CLAV 875-125MG 1 EACH TAB PO SCH (08:04)
[2018-02-20] MEDS: INSULIN ASPART 100 UNIT/ML 1 ML 10 ML VIAL SQ SCH ×2 (08:04→12:42)
[2018-02-20] MEDS: FLUoxetine HCL 10 MG CAP PO SCH (08:05)
[2018-02-20] MEDS: NALTREXONE HCL 50 MG TAB PO SCH (08:05)
[2018-02-20] MEDS: TAMSULOSIN 0.4 MG CAP.ER.24H PO SCH (08:05)
[2018-02-20] MEDS: ENOXAPARIN 40 MG/0.4 ML SYRINGE SQ SCH (08:05)
[2018-02-20] MEDS: PREGABALIN 50 MG CAP PO SCH (08:05)
[2018-02-20 12:23] LABS: Glucose,Whole Blood 152 mg/dL (75-99)
[2018-02-20 15:56] VITALS: BP 108/66; PULSE 99; TEMP 98.3
--- NOTE | 2018-02-21 05:46 | DS ---
DISCHARGE SUMMARY DATE OF ADMISSION: 02/18/2018 DATE OF DISCHARGE: 02/20/2018 FINAL DIAGNOSES: 1. Acute chronic obstructive pulmonary disease exacerbation in a smoker after exposure to chemicals from cleaning solvents. 2. Chronic nicotine dependence. Patient is a cigarette smoker. 3. The patient has both the kidneys on one side. 4. Gastroesophageal reflux disease. 5. Depression, anxiety, not otherwise specified. HOSPITAL COURSE: This patient after cleaning up bathroom floor, got exposed to chemicals, presented with acute COPD exacerbation. Responded well to bronchodilators and steroids. Patient counseled extensively again stopping smoking. Patient is seen by Cardiology. No further workup for them. A 2-D echo showed an EF of 55%. On examination, temperature 98.3 pulse 99, respiration 16, blood pressure 108/66, pulse ox 97% on room air. LUNGS: Decreased breath sounds. CARDIOVASCULAR: First and second sounds normal. DISCHARGE MEDICATIONS: 1. Ventolin HFA 1 or 2 puffs q.6 p.r.n. 2. Revia 50 mg p.o. daily. 3. Trazodone 150 mg p.o. q.h.s. p.r.n. 4. Lyrica 50 mg p.o. daily. 5. Flomax 0.4 mg p.o. daily. 6. Ventolin HFA 2 puffs q.i.d. p.r.n. 7. Zyrtec-D 1 tablet p.o. q.12 p.r.n. 8. Prozac 30 mg p.o. daily. 9. Atrovent 2 puffs q.i.d. 10.Prednisone taper. Follow up with Dr. Petersen in 6 weeks. Follow up with Dr. Boyd in 3 days. MMODL / IJN: [id number] /
== END 2018-02-20 16:07 | disposition home or self-care (01) ==
LOC: EC 17:01 → 1SOBS 20:00
PROVIDERS: ADMIT Hospitalist; ATTEND Hospitalist
DX: J44.1 Chronic obstructive pulmonary disease with (acute) exacerbation (principal); Z77.098 Contact with and (suspected) exposure to other hazardous, chiefly nonmedicinal, chemicals; F17.210 Nicotine dependence, cigarettes, uncomplicated; J32.9 Chronic sinusitis, unspecified; I95.1 Orthostatic hypotension; M19.90 Unspecified osteoarthritis, unspecified site; K21.9 Gastro-esophageal reflux disease without esophagitis; F90.9 Attention-deficit hyperactivity disorder, unspecified type; F41.9 Anxiety disorder, unspecified; F32.9 Major depressive disorder, single episode, unspecified; Q63.2 Ectopic kidney; Z86.79 Personal history of other diseases of the circulatory system; Z79.899 Other long term (current) drug therapy; Z83.79 Family history of other diseases of the digestive system; Z81.1 Family history of alcohol abuse and dependence; Z82.49 Family history of ischemic heart disease and other diseases of the circulatory system; Z81.8 Family history of other mental and behavioral disorders; Z83.2 Family history of diseases of the blood and blood-forming organs and certain disorders involving the immune mechanism
CPT/HCPCS: 96372 ×2; 96375; 96376 ×2; 96361; 96374; 99285; 36415; 94640 ×4; 93005; 93306; 85379; 84439; 80053; 84443; 82550; 82553; 83690; 83735; 84484 ×2; 85025; 85610; 85730; 83036; 71045; G0378 ×3; J2920 ×2; J2405; J1650 ×2

== ENCOUNTER 2018-07-09 13:59 | Observation (INO) | payer OTHER ==
[2018-07-09 14:35] LABS: Basophils % (A) 0 %; Eosinophils # (A) 0.2 k/uL (0-0.7); Eosinophils % (A) 3 %; HCT 45.6 % (39.0-53.0); HGB 15.2 gm/dL (13.0-17.5); Lymphocytes # (A) 1.8 k/uL (1.0-4.8); Lymphocytes % (A) 18 %; MCH 29.7 pg (25.0-35.0); MCHC 33.3 g/dL (31.0-37.0); MCV 89.3 fL (80.0-100.0); Mean Platelet Volume 8.2; Monocytes # (A) 0.5 k/uL (0-1.0); Monocytes % (A) 5 %; Neutrophils # (A) 6.9 k/uL (1.3-7.7); Neutrophils % (A) 72 %; Platelet Count 192 k/uL (150-450); RBC 5.11 m/uL (4.30-5.90); RDW 12.8 % (11.5-15.5); WBC 9.7 k/uL (3.8-10.6)
[2018-07-09 14:44] LABS: ALT 33 U/L (21-72); AST 32 U/L (17-59); Alkaline Phosphatase 73 U/L (38-126); Anion Gap 7 mmol/L; Blood Urea Nitrogen 18 mg/dL (9-20); Calcium 9.2 mg/dL (8.4-10.2); Carbon Dioxide 23 mmol/L (22-30); Chloride 108 mmol/L (98-107); Glucose 99 mg/dL (74-99); INR 0.9 (<1.2); Prothrombin Time 9.9 sec (9.0-12.0); Sodium 138 mmol/L (137-145); Total Bilirubin 0.6 mg/dL (0.2-1.3); Total Protein 6.6 g/dL (6.3-8.2)
[2018-07-09 14:45] LABS: Partial Thromboplastin Time 24.7 sec (22.0-30.0)
[2018-07-09] MEDS ORDERED: SODIUM CHLORIDE 0.9% 1,000 ML IV ONE (15:00)
[2018-07-09] MEDS ORDERED: ASPIRIN 81 MG PO STA (15:00)
[2018-07-09 15:01] LABS: Potassium 4.6 mmol/L (3.5-5.1)
[2018-07-09] MEDS: SODIUM CHLORIDE 0.9% 1,000 ML IV SCH (15:08)
--- NOTE | 2018-07-09 15:53 | ED ---
Chest Pain HPI - General Source: patient, RN notes reviewed, old records reviewed Mode of arrival: ambulatory Limitations: no limitations <Daniella Ibarra - Last Filed: 07/09/18 16:51> <Johnathan Garcia - Last Filed: 07/09/18 17:00> - General Chief Complaint: Chest Pain Stated Complaint: Chest pain Time Seen by Provider: 07/09/18 14:58 - History of Present Illness Initial Comments: Patient is a 52-year-old male presents to return to complaint of chest pain starting at 12:30 today. He reports to dull ache with a distress. Patient states that he's had no history of stenting. He did have a cardiac cath and cardiac ablation by Dr. Morales a few years ago. He reports his history of bradycardia. Patient states that he had a abnormal stress test a few weeks ago. This was done out patiently in his office. Patient reports that his pain is a 5 out of 10 at this time. He does report associated nausea and shortness of breath. He denies any peripheral paresthesias headache or dizziness. Patient states that he has had no other symptoms. (Daniella Ibarra) - Related Data Home Medications Medication Instructions Recorded Confirmed Albuterol Inhaler [Ventolin Hfa 1 - 2 puff INHALATION RT-Q6H PRN 05/14/14 07/09/18 Inhaler] Naltrexone HCl [Revia] 50 mg PO DAILY 05/14/14 07/09/18 traZODone HCL 150 mg PO HS PRN 05/14/14 07/09/18 Pregabalin [Lyrica] 50 mg PO DAILY 01/27/16 07/09/18 Tamsulosin [Flomax] 0.4 mg PO DAILY 05/26/17 07/09/18 Albuterol Nebulized [Ventolin 2.5 mg INHALATION RT-QID PRN 02/18/18 07/09/18 Nebulized] FLUoxetine HCL [PROzac] 30 mg PO DAILY 02/18/18 07/09/18 Previous Rx's Medication Instructions Recorded Ipratropium [place] [Atrovent Hfa] 2 puff INHALATION QID #1 inhaler 02/20/18 Allergies Allergy/AdvReac Type Severity Reaction Status Date / Time No Known Allergies Allergy Verified 07/09/18 15:38 Review of Systems ROS Other: All systems not noted in ROS Statement are negative. <FredDaniella - Last Filed: 07/09/18 16:51> ROS Other: All systems not noted in ROS Statement are negative. <Johnathan Garcia - Last Filed: 07/09/18 17:00> ROS Statement: Those systems with pertinent positive or pertinent negative responses have been documented in the HPI. EKG Findings - EKG Comments: EKG Findings:: EKG performed at 1414 she's had 3 cardiac arrest him EKG. Ventricular rate 51 beats were minute. Was 148 ms. QS ration 86. QT QTc is 426/392 ms. No evidence of ST elevation. <Daniella Ibarra - Last Filed: 07/09/18 16:51> 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, History of Any Multi-Drug Resistant Organisms: None Reported Past Surgical History: Cardiac Ablation, Heart Catheterization, Hernia Repair Additional Past Surgical History / Comment(s): JOSE INGUINAL HERNIA REPAIR, JOSE CARPAL TUNNEL release, Past Anesthesia/Blood Transfusion Reactions: No Reported Reaction Past Psychological History: ADD/ADHD, Anxiety, Depression Smoking Status: Current every day smoker Past Alcohol Use History: None Reported Past Drug Use History: None Reported - Past Family History Father Family Medical History: Unable to Obtain Additional Family Medical History / Comment(s): PASSED WHEN PT WAS 7 YEARS OLD. WAS AN ALCOHOLIC Mother Family Medical History: Deep Vein Thrombosis (DVT), Hypertension Additional Family Medical History / Comment(s): DIVERTICULTIS, DEPRESSION <FredDaniella - Last Filed: 07/09/18 16:51> General Exam Limitations: no limitations General appearance: alert, in no apparent distress Head exam: Present: atraumatic Eye exam: Present: normal appearance, PERRL, EOMI. Absent: scleral icterus, conjunctival injection, periorbital swelling ENT exam: Present: normal exam, mucous membranes moist Neck exam: Present: normal inspection. Absent: tenderness, meningismus, lymphadenopathy Respiratory exam: Present: normal lung sounds bilaterally. Absent: respiratory distress, wheezes, rales, rhonchi, stridor Cardiovascular Exam: Present: regular rate, normal rhythm, normal heart sounds. Absent: systolic murmur, diastolic murmur, rubs, gallop, clicks GI/Abdominal exam: Present: soft, normal bowel sounds. Absent: distended, tenderness, guarding, rebound, rigid Extremities exam: Present: normal inspection, full ROM, normal capillary refill. Absent: tenderness, pedal edema, joint swelling, calf tenderness Back exam: Present: normal inspection Neurological exam: Present: alert, oriented X3, CN II-XII intact Psychiatric exam: Present: normal affect, normal mood Skin exam: Present: warm, dry, intact, normal color. Absent: rash <Daniella Ibarra - Last Filed: 07/09/18 16:51> - General Exam Comments Initial Comments: 52-year-old male. Oriented 3. (Daniella Ibarra) Course <Johnathan Garcia - Last Filed: 07/09/18 17:00> Vital Signs 07/09/18 07/09/18 07/09/18 14:03 14:56 16:00 Temperature 97.8 F Pulse Rate 56 L 50 L 48 L Respiratory 18 15 16 Rate Blood Pressure 125/80 123/81 136/88 O2 Sat by Pulse 98 97 100 Oximetry - Reevaluation(s) Reevaluation #1: 07/09/18 16:59 Page supervision: I proceeded [id number] evaluation as patient patient did present with complaints of left-sided chest pain. He does have multiple risk factors for heart disease. Patient this time he has no chest pain lungs are clear heart regular nontender chest wall. I do agree with the assessment and plan. Case is discussed with Dr. Foley. 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 Heart rate was approximate [address] No acute [address]-T wave elevation or depressions are dysrhythmia noted at this time. (Johnathan Garcia) Chest Pain MDM <Daniella Ibarra - Last Filed: 07/09/18 16:51> - MDM 52-year-old male presenting today with complaints of chest pain. Symptoms started 12:30. Reports associated shortness of breath. He is a smoker. He reports that he's had cardiac ablation for years ago by Dr. Mroales. While in the ER Patient has continued to complain of chest pain 10/08. Patient's lab work including troponin were negative. EKG is negative for any ST changes. Patient has risk factors of family history and smoking like to admit the Patient for her neurology consult with Dr. Chisholm in. Patient agrees to admission. Discussed the case with Dr. Garcia. (Daniella Ibarra) Disposition Is patient prescribed a controlled substance at d/c from ED?: No Time of Disposition: 16:53 <Daniella Ibarra - Last Filed: 07/09/18 16:51> <Johnathan Garcia - Last Filed: 07/09/18 17:00> Clinical Impression: Unstable angina pectoris, History of cigarette smoking, Dyspnea Disposition: ADMITTED IP TO THIS HOSP Condition: Stable Referrals: Epi Boyd DO [Primary Care Provider] - 1-2 days
--- NOTE | 2018-07-09 16:20 | XR ---
EXAMINATION TYPE: XR chest 2V DATE OF EXAM: 07/09/2018 COMPARISON: 02/18/2018 HISTORY: Chest pain and shortness of breath TECHNIQUE: Frontal and lateral views of the chest are obtained. FINDINGS: There is no focal air space opacity, pleural effusion, or pneumothorax seen. The cardiac silhouette size is within normal limits. The osseous structures are intact. IMPRESSION: No acute cardiopulmonary process.
[2018-07-09] MEDS ORDERED: ACETAMINOPHEN TAB 325 MG TAB PO PRN (16:54)
[2018-07-09 21:58] VITALS: BMI 23.8
[2018-07-09] MEDS: MORPHINE SULFATE 4 MG/ML SYRINGE IV PRN (22:10)
[2018-07-10] MEDS: SODIUM CHLORIDE 0.9% 1,000 ML IV SCH ×3 (01:00→20:32)
[2018-07-10 03:55] LABS: Cholesterol 158 mg/dL (<200); HDL Cholesterol 51 mg/dL (40-60); LDL Cholesterol,Calculated 86 mg/dL (0-99); Triglycerides 103 mg/dL (<150)
[2018-07-10] MEDS: MORPHINE SULFATE 4 MG/ML SYRINGE IV PRN (05:47)
--- NOTE | 2018-07-10 09:21 | P.CRDCN ---
History of Present Illness Consult date: 07/10/18 Requesting physician: Bogdan Foley Consult reason: chest pain Chief complaint: Chest pain History of present illness: This is a pleasant 52-year-old gentleman with history of SVT with p rior ablation, COPD, GERD, chronic nicotine dependence who follows with Dr. Petersen in the office. He presents to the hospital on this occasion with symptoms of chest discomfort. Patient describes the pain as a sharp stabbing pain that occurs mostly in the right side of his chest. He does state that he gets occasional associated nausea and at times diaphoresis. His troponins 3 were negative. EKG shows a sinus bradycardia with no acute changes. He had an echocardiogram with Doppler study performed in January of last year which revealed a normal left ventricular systolic function. According to the patient, he is unsure as to when he had his most recent stress test in the office. Chest x-ray does not show any acute process. Blood pressure this morning 108/60 with a heart rate in the 70s. White blood cell count 9.7, hemoglobin 15.2, platelet count 192. Sodium 138, potassium 4.6, BUN 18 and creatinine 0.9. Troponins negative 3. At the time of my examination this morning, patient currently denies chest pain, he did receive morphine at 6 AM which she states helps the pain significantly. 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, History of Any Multi-Drug Resistant Organisms: None Reported Past Surgical History: Cardiac Ablation, Heart Catheterization, Hernia Repair Additional Past Surgical History / Comment(s): JOSE INGUINAL HERNIA REPAIR, JOSE CARPAL TUNNEL release, Past Anesthesia/Blood Transfusion Reactions: No Reported Reaction Past Psychological History: ADD/ADHD, Anxiety, Depression Additional Psychological History / Comment(s): STATES DOES NOT TAKE MEDICATION FOR ADD Smoking Status: Current every day smoker Past Alcohol Use History: None Reported Additional Past Alcohol Use History / Comment(s): STARTED SMOKING AT AGE 14, (1979) SMOKES 1 PPD. QUIT ETOH 2016 Past Drug Use History: None Reported Additional Drug Use History / Comment(s): TEENAGER - Past Family History Father Family Medical History: Unable to Obtain Additional Family Medical History / Comment(s): PASSED WHEN PT WAS 7 YEARS OLD. WAS AN ALCOHOLIC Mother Family Medical History: Deep Vein Thrombosis (DVT), Hypertension Additional Family Medical History / Comment(s): DIVERTICULTIS, DEPRESSION Medications and Allergies Home Medications Medication Instructions Recorded Confirmed Type Albuterol Inhaler [Ventolin Hfa 1 - 2 puff INHALATION RT-Q6H PRN 05/14/14 07/09/18 History Inhaler] Naltrexone HCl [Revia] 50 mg PO DAILY 05/14/14 07/09/18 History traZODone HCL 150 mg PO HS PRN 05/14/14 07/09/18 History Pregabalin [Lyrica] 50 mg PO DAILY 01/27/16 07/09/18 History Tamsulosin [Flomax] 0.4 mg PO DAILY 05/26/17 07/09/18 History Albuterol Nebulized [Ventolin 2.5 mg INHALATION RT-QID PRN 02/18/18 07/09/18 History Nebulized] FLUoxetine HCL [PROzac] 30 mg PO DAILY 02/18/18 07/09/18 History Ipratropium [place] [Atrovent Hfa] 2 puff INHALATION QID #1 inhaler 02/20/18 07/09/18 Rx Allergies Allergy/AdvReac Type Severity Reaction Status Date / Time No Known Allergies Allergy Verified 07/09/18 15:38 Physical Exam Vitals: Vital Signs Temp Pulse Pulse Resp BP BP Pulse Ox 07/10/18 04:00 98.2 F 70 20 108/65 96 07/10/18 03:46 20 07/10/18 00:00 61 20 07/09/18 23:22 97.5 F L 61 20 113/70 97 07/09/18 21:46 97.7 F 48 L 20 140/86 98 07/09/18 21:03 47 L 16 138/87 98 07/09/18 20:01 47 L 16 140/94 99 07/09/18 19:30 48 L 15 138/91 100 07/09/18 18:00 47 L 18 140/99 100 07/09/18 16:00 48 L 16 136/88 100 07/09/18 14:56 50 L 15 123/81 97 07/09/18 14:03 97.8 F 56 L 18 125/80 98 Intake and Output 03/03/1907/10/18 07/10/18 22:59 06:59 14:59 Intake Total 300 500 Balance 300 500 Intake: Intake, IV Titration 500 Amount Sodium Chloride 0.9% 1, 500 000 ml @ 100 mls/hr IV . Q10H [facility] Rx#:[id number] Oral 300 Other: Voiding Method Toilet # Voids 2 Weight 72.8 kg PHYSICAL EXAMINATION: GENERAL: 52-year-old gentleman in no acute distress at the time of my examination HEENT: Head is atraumatic, normocephalic. Pupils equal, round. Sclera anicteric. Conjunctiva are clear. Mucous membranes of the mouth are moist. Neck is supple. There is no elevated jugular venous pressure. No carotid bruit is heard. HEART EXAMINATION: Heart S1, S2 normal. No murmur or gallop heard. CHEST EXAMINATION: Lungs are clear to auscultation and precussion. No chest wall tenderness is noted on palpation or with deep breathing. ABDOMEN: Soft, nontender. Bowel sounds are heard. No organomegaly noted. EXTREMITIES: 2+ peripheral pulses with no evidence of peripheral edema and no calf tenderness noted. NEUROLOGIC patient is awake, alert and oriented 3 . . Results 07/09/18 14:23 07/09/18 14:23 Cardiac Enzymes 07/09/18 07/09/18 07/09/18 Range/Units 14:23 14:23 20:30 AST 32 (17-59) U/L Troponin I <0.012 <0.012 (0.000-0.034) ng/mL 07/10/18 Range/Units 03:03 AST (17-59) U/L Troponin I <0.012 (0.000-0.034) ng/mL Coagulation 07/09/18 Range/Units 14:23 PT 9.9 (9.0-12.0) sec APTT 24.7 (22.0-30.0) sec Lipids 07/10/18 Range/Units 03:03 Triglycerides 103 (<150) mg/dL Cholesterol 158 (<200) mg/dL HDL Cholesterol 51 (40-60) mg/dL CBC 07/09/18 Range/Units 14:23 WBC 9.7 (3.8-10.6) k/uL RBC 5.11 (4.30-5.90) m/uL Hgb 15.2 (13.0-17.5) gm/dL Hct 45.6 (39.0-53.0) % Plt Count 192 (150-450) k/uL Comprehensive Metabolic Panel 07/09/18 Range/Units 14:23 Sodium 138 (137-145) mmol/L Potassium 4.6 (3.5-5.1) mmol/L Chloride 108 H (98-107) mmol/L Carbon Dioxide 23 (22-30) mmol/L BUN 18 (9-20) mg/dL Creatinine 0.99 (0.66-1.25) mg/dL Glucose 99 (74-99) mg/dL Calcium 9.2 (8.4-10.2) mg/dL AST 32 (17-59) U/L ALT 33 (21-72) U/L Alkaline Phosphatase 73 (38-126) U/L Total Protein 6.6 (6.3-8.2) g/dL Albumin 4.0 (3.5-5.0) g/dL Current Medications Generic Name Dose Route Start Last Admin Trade Name Freq PRN Reason Stop Dose Admin Acetaminophen 650 mg 07/09/18 16:54 Tylenol Tab PO Q4HR PRN Mild Pain Aspirin 325 mg 07/10/18 09:00 Aspirin PO DAILY AMANDA Sodium Chloride 1,000 mls @ 100 mls/hr 07/09/18 15:00 07/10/18 01:00 Saline 0.9% IV 100 mls/hr .Q10H AMANDA Administration Morphine Sulfate 4 mg 07/09/18 16:54 07/10/18 05:47 Morphine Sulfate (Inj) IV 4 mg Q5M PRN Administration Chest Pain Nitroglycerin 0.4 mg 07/09/18 16:54 Nitrostat SUBLINGUAL Q5M PRN Chest Pain Intake and Output 07/09/18 07/10/18 07/10/18 22:59 06:59 14:59 Intake Total 300 500 Balance 300 500 Intake: Intake, IV Titration 500 Amount Sodium Chloride 0.9% 1, 500 000 ml @ 100 mls/hr IV . Q10H [facility] Rx#:[id number] Oral 300 Other: Voiding Method Toilet # Voids 2 Weight 72.8 kg 07/09/18 14:23 07/09/18 14:23 EKG Interpretations (text) EKG shows a sinus bradycardia with no acute changes. Assessment and Plan Plan: Assessment and plan #1 chest pain atypical for acute coronary syndrome. Troponins negative 3. EKG shows a sinus bradycardia with no acute changes. #2 nicotine dependence #3 history of SVT with prior ablation Plan We will obtain an echocardiogram with Doppler study. We will also check at the office to see when the patient last underwent stress testing, if he has not had a stress test within the past one year we would recommend a stress echocardiographic study be performed today. He has been advised again regarding the importance of nicotine cessation. Further recommendations to follow. DNP note has been reviewed, I agree with a documented findings and plan of care. Patient was seen and examined.
[2018-07-10] MEDS ORDERED: DOBUTamine DRIP for NUC MED 500 MG in DEXTROSE/WATER 1 250ML.BAG IV ONE (11:06)
--- NOTE | 2018-07-10 12:10 | ECHOF ---
Referral Reason:chest pain MEASUREMENTS -------- HEIGHT: 175.3 cm WEIGHT: 72.6 kg BP: 114/61 RVIDd: 2.7 cm (< 3.3) IVSd: 0.9 cm (0.6 - 1.1) LVIDd: 4.0 cm (3.9 - 5.3) LVPWd: 0.9 cm (0.6 - 1.1) IVSs: 1.2 cm LVIDs: 2.7 cm LVPWs: 1.3 cm LAESV Index (A-L): 17.16 ml/m Ao Diam: 3.5 cm (2.0 - 3.7) AV Cusp: 2.1 cm (1.5 - 2.6) LA Diam: 3.0 cm (2.7 - 3.8) MV EXCURSION: 17.918 mm (> 18.000) MV EF SLOPE: 134 mm/s (70 - 150) EPSS: 0.6 cm MV E Erickson: 1.01 m/s MV DecT: 220 ms MV A Erickson: 0.62 m/s MV E/A Ratio: 1.63 RAP: 5.00 mmHg RVSP: 25.60 mmHg FINDINGS -------- Sinus rhythm. Resting bradycardia (HR<60bpm). This was a technically adequate study. The left ventricular size is normal. Left ventricular wall thickness is normal. Overall left vent ricular systolic function is normal with, an EF between 55 - 60 %. The right ventricle is normal in size. Normal LA size by volume 22+/-6 ml/m2. The right atrial size is normal. The aortic valve is trileaflet, and appears structurally normal. No aortic stenosis or regurgitation. The mitral valve is normal. Mild mitral regurgitation is present. Mild tricuspid regurgitation present. Right ventricular systolic pressure is normal at < 35 mmHg. There is no evidence of pulmonary hypertension. Trace/mild (physiologic) pulmonic regurgitation. The aortic root size is normal. Normal inferior vena cava with normal inspiratory collapse consistent with estimated right atrial pre ssure of 5 mmHg. There is no pericardial effusion. CONCLUSIONS -------- 1. Sinus rhythm. 2. Resting bradycardia (HR<60bpm). 3. This was a technically adequate study. 4. The left ventricular size is normal. 5. Left ventricular wall thickness is normal. 6. Overall left ventricular systolic function is normal with, an EF between 55 - 60 %. 7. The right ventricle is normal in size. 8. Normal LA size by volume 22+/-6 ml/m2. 9. The aortic valve is trileaflet, and appears structurally normal. No aortic stenosis or regurgitati on. 10. Mild mitral regurgitation is present. 11. Mild tricuspid regurgitation present. 12. Right ventricular systolic pressure is normal at < 35 mmHg. 13. Trace/mild (physiologic) pulmonic regurgitation. 14. The aortic root size is normal. 15. There is no pericardial effusion. [employer] OPERATOR: Oliver Thurston RDCS
[2018-07-10] MEDS: NITROGLYCERIN SL TABS 0.4 MG TAB SUBLINGUAL PRN (14:19)
--- NOTE | 2018-07-10 15:01 | ECHOS ---
STRESS ECHOCARDIOGRAM INDICATIONS: Chest pain. BASELINE HEART RATE: 45 BASELINE BLOOD PRESSURE: 107/75 MAXIMUM HEART RATE: 130 MAXIMUM BLOOD PRESSURE: 175/63 85% MPHR: 144 100% MPHR: 169 MAXIMUM STAGE REACHED: 5 TOTAL EXERCISE TIME: 13:30 CLINICAL INFORMATION: Baseline rhythm is sinus mechanism, rate of 45, normal axis, intervals, normal echocardiogram. Baseline blood pressure 107/75 mmHg. Patient received an infusion of dobutamine per protocol. Peak rate 130 beats per minute which is equal to 77% maximum predicted heart rate. Peak blood pressure 175/63 mmHg. Electrocardiograph monitoring revealed rare PVCs. There was no evidence of diagnostic ischemic ST deviation. At peak infusion, patient had an episode of wide-complex rhythm that could represent atrial fibrillation with aberrancy that resolved spontaneously. FINDING: Baseline echocardiogram revealed normal wall motion. At peak exercise, there was normal wall motion augmentation with no hypokinesis or dyskinesis. CONCLUSION: 1. Nondiagnostic electrocardiographic response to dobutamine infusion secondary to baseline EKG abnormality. Patient had one episode of wide-complex tachycardia that was irregular and could represent atrial fibrillation with aberrancy at peak infusion that resolved spontaneously. 2. At the heart rate achieved, there was no evidence of stress-induced ischemia although 85% maximum predicted heart rate was not achieved. MMODL / IJN: [id number] / MTDD
[2018-07-10] MEDS: TAMSULOSIN 0.4 MG CAP.ER.24H PO SCH (15:39)
[2018-07-10] MEDS: ASPIRIN 325 MG TAB PO SCH (15:39)
[2018-07-10] MEDS: PREGABALIN 50 MG CAP PO SCH (15:39)
[2018-07-10] MEDS: NALTREXONE HCL 50 MG TAB PO SCH (15:41)
[2018-07-10] MEDS: FLUoxetine HCL 10 MG CAP PO SCH (15:46)
[2018-07-10] MEDS: IPRATROPIUM 0.5 MG/2.5 ML NEBU INHALATION SCH ×3 (20:28→23:38)
--- NOTE | 2018-07-10 23:56 | P.HPIM ---
History of Present Illness H&P Date: 07/10/18 Chief Complaint: Chest pain History of present complaint: This is a very pleasant 52-year-old patient who follows with Dr. Negrita Boyd. Chronic stable medical conditions include COPD, GERD, osteoarthritis, patient is bothered with both the kidneys on the left side. Also chronic stable conditions include ADHD anxiety depression. Patient presents with chest pain on and off going on for quite a while. Now the pain is centered of the chest and moved to the left side and can last anywhere from a minute better and a half to 2 - 3 minutes. Does not radiate to the neck around. Not related to activity. Sometimes associated shortness of breath, lightheadedness, and possible aspiration. No dizziness. His any prior cardiac history patient. Patient does is a smoker. Patient admitted for further cardiac workup. Cardiology was consulted. Review of systems: GEN.: None EYES: None HEENT: None NECK: None RESPIRATORY: As above CARDIOVASCULAR: As above GASTROINTESTINAL: None GENITOURINARY: None MUSCULOSKELETAL: Pain In the joints LYMPHATICS: None HEMATOLOGICAL: None PSYCHIATRY: None NEUROLOGICAL: None Past history: COPD, both kidneys on the left side, GERD, anxiety depression Social history: Smokes about half pack a day for close to 40 years. Was drinking heavy up to year and half ago. 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 . Family history: Reviewed, noncontributory to presentation Physical examination: VITAL SIGNS: Temperature 97.9, pulse 51, respiratory 20, blood pressure 114/61, 96% room air GENERAL: Average built, sitting up, comfortable. EYES: Pupils equal. Conjunctiva normal. HEENT: External appearance of nose and ears normal, oral cavity grossly normal. NECK: JVD not raised; masses not palpable. HEART: First and second heart sounds are normal; no edema. LUNGS: Respiratory rate normal; decreased breath sounds. ABDOMEN: Soft, nontender, liver spleen not palpable, no masses palpable. LYMPHATICS: No lymph nodes palpable in the axilla and neck. PSYCH: Alert and oriented x3; mood and affect normal. NEUROLOGICAL: Cranial nerves grossly intact; no facial asymmetry, power and sensation grossly intact Investigations: Done in the clinical context. White count 9.7, hemoglobin 15.2, potassium 4.6, BUN/creatinine normal, Troponin I 3 negative EKG tracing personally reviewed by me shows sinus bradycardia Chest [id number] reviewed by me shows evidence of hyperinflation. No infiltrates Assessment: -Anterior chest wall pain of short duration present for a long time. Not really compatible with the cardiac presentation. But patient does have risk factors and underlying cardiac ischemia cannot be ruled out. -Chronic nicotine dependence patient sitting smoker -COPD in a current smoker -BPH. Patient takes Flomax -Chronic insomnia for which patient takes Desyrel Plan: Home medications will be resumed. Cardiology was consulted. 2-D echo and a cardiac stress test was ordered. Patient started aspirin. Care was discussed with the patient and questions were answered. Smoke cessation counseling: This was done at length with the patient. We will begin a nicotine patch. More than 3 per suspected of this aspect of the case. 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, History of Any Multi-Drug Resistant Organisms: None Reported Past Surgical History: Cardiac Ablation, Heart Catheterization, Hernia Repair Additional Past Surgical History / Comment(s): JOSE INGUINAL HERNIA REPAIR, JOSE CARPAL TUNNEL release, Past Anesthesia/Blood Transfusion Reactions: No Reported Reaction Past Psychological History: ADD/ADHD, Anxiety, Depression Additional Psychological History / Comment(s): STATES DOES NOT TAKE MEDICATION FOR ADD Smoking Status: Current every day smoker Past Alcohol Use History: None Reported Additional Past Alcohol Use History / Comment(s): STARTED SMOKING AT AGE 14, (1979) SMOKES 1 PPD. QUIT ETOH 2016 Past Drug Use History: None Reported Additional Drug Use History / Comment(s): TEENAGER - Past Family History Father Family Medical History: Unable to Obtain Additional Family Medical History / Comment(s): PASSED WHEN PT WAS 6 YEARS OLD. WAS AN ALCOHOLIC Mother Family Medical History: Deep Vein Thrombosis (DVT), Hypertension Additional Family Medical History / Comment(s): DIVERTICULTIS, DEPRESSION Medications and Allergies Home Medications Medication Instructions Recorded Confirmed Type Albuterol Inhaler [Ventolin Hfa 1 - 2 puff INHALATION RT-Q6H PRN 05/14/14 07/09/18 History Inhaler] Naltrexone HCl [Revia] 50 mg PO DAILY 05/14/14 07/09/18 History traZODone HCL 150 mg PO HS PRN 05/14/14 07/09/18 History Pregabalin [Lyrica] 50 mg PO DAILY 01/27/16 07/09/18 History Tamsulosin [Flomax] 0.4 mg PO DAILY 05/26/17 07/09/18 History Albuterol Nebulized [Ventolin 2.5 mg INHALATION RT-QID PRN 02/18/18 07/09/18 History Nebulized] FLUoxetine HCL [PROzac] 30 mg PO DAILY 02/18/18 07/09/18 History Ipratropium [place] [Atrovent Hfa] 2 puff INHALATION QID #1 inhaler 02/20/18 Rx Allergies Allergy/AdvReac Type Severity Reaction Status Date / Time No Known Allergies Allergy Verified 07/09/18 15:38 Physical Exam Vitals: Vital Signs Temp Pulse Pulse Resp BP BP Pulse Ox 07/10/18 11:44 97.9 F 49 L 20 111/64 96 07/10/18 08:00 97.9 F 51 L 20 114/61 96 07/10/18 04:00 98.2 F 70 20 108/65 96 07/10/18 03:46 20 07/10/18 00:00 61 20 07/09/18 23:22 97.5 F L 61 20 113/70 97 07/09/18 21:46 97.7 F 48 L 20 140/86 98 07/09/18 21:03 47 L 16 138/87 98 07/09/18 20:01 47 L 16 140/94 99 07/09/18 19:30 48 L 15 138/91 100 07/09/18 18:00 47 L 18 140/99 100 07/09/18 16:00 48 L 16 136/88 100 Intake and Output 07/10/18 07/10/18 07/10/18 06:59 14:59 22:59 Intake Total 500 800 Balance 500 800 Intake: Intake, IV Titration 500 800 Amount Sodium Chloride 0.9% 1, 500 800 000 ml @ 100 mls/hr IV . Q10H [facility] Rx#:[id number] Other: Voiding Method Toilet # Voids 2 1 # Bowel Movements 1 Weight 72.8 kg Results CBC & Chem 7: 07/09/18 14:23 07/09/18 14:23 Thrombosis Risk Factor Assmnt - Choose All That Apply Any of the Below Risk Factors Present?: Yes Each Factor Represents 1 point: Age 41-60 years Other Risk Factors: No Other congenital or acquired thrombophilia - If yes, enter type in comment: No Thrombosis Risk Factor Assessment Total Risk Factor Score: 1 Thrombosis Risk Factor Assessment Level: Low Risk
[2018-07-11] MEDS: SODIUM CHLORIDE 0.9% 1,000 ML IV SCH ×2 (06:34→18:50)
[2018-07-11] MEDS: ALBUTEROL NEBULIZED 2.5 MG/3 ML INHALATION PRN ×2 (08:52→19:16)
[2018-07-11] MEDS ORDERED: FAMOTIDINE 20 MG/2 ML VIAL IV SCH (09:21)
--- NOTE | 2018-07-11 09:22 | P.PN ---
Subjective On-call hospitalist start covering Dr. Foley on 07/11/2018 This is a pleasant 52 years old male with past medical history of COPD, GERD, osteoarthritis, supraventricular tachycardia. Patient's current cigarette smoker about half pack per day. Patient presents because of chest pain. Patient states that chest pain has been going on for 4-5 years now on and off, its mainly central and radiating to the left side. However at this time pain became more severe up to 8-10/10 in severity. Described as nonspecific, with no precipitating factors however it seems relieved with aspirin and nitro medication, currently pain is down to 1/10 in severity. No dyspnea. No sweating. No nausea vomiting. No change in urine or bowel habits. No fever. No coughing. Labs were unremarkable. Patient is already been evaluated by pool attendant team. Objective - Vital Signs Vital signs: Vital Signs Temp 97.5 F L 07/11/18 04:00 Pulse 49 L 07/11/18 09:00 Resp 16 07/11/18 09:00 BP 119/74 07/11/18 04:00 Pulse Ox 95 07/11/18 08:52 Intake & Output 07/10/18 07/11/18 07/11/18 18:59 06:59 18:59 Intake Total 1040 1600 Balance 1040 1600 Weight 73.3 kg Intake: Intake, IV Titration 800 800 Amount Sodium Chloride 0.9% 1, 800 800 000 ml @ 100 mls/hr IV . Q10H [facility] Rx#:[id number] Oral 240 800 Other: Voiding Method Toilet # Voids 1 3 # Bowel Movements 1 - Exam GENERAL: The patient is alert and oriented x3, not in any acute distress. Well developed, well nourished. HEENT: Pupils are round and equally reacting to light. EOMI. No scleral icterus. No conjunctival pallor. Normocephalic, atraumatic. No pharyngeal erythema. No thyromegaly. CARDIOVASCULAR: S1 and S2 present. No murmurs, rubs, or gallops. PULMONARY: Chest is clear to auscultation, no wheezing or crackles. ABDOMEN: Soft, nontender, nondistended, normoactive bowel sounds. No palpable organomegaly. MUSCULOSKELETAL: No joint swelling or deformity. EXTREMITIES: No cyanosis, clubbing, or pedal edema. NEUROLOGICAL: Gross neurological examination did not reveal any focal deficits. SKIN: No rashes. - Labs CBC & Chem 7: 07/09/18 14:23 07/09/18 14:23 Assessment and Plan Assessment: Chest pain, stress test was negative. Improving Ventricular tachycardia during stress test, versus other arrhythmia. Cartilage team are following the patient. History of supraventricular tachycardia History of COPD, not in acute exacerbation History of GERD History of osteoarthritis Plan: This is a pleasant 52 years old male who presents with chest pain. His chest pain is significantly improved with medication. Patient continued on aspirin. Cardiology evaluated the patient. His testis was negative with some arrhythmia and his been currently evaluated by pool attendant team.Labs and medication were reviewed.. Continue same treatment. Continue with symptomatic treatment. Resume home medication. Monitor lytes and vitals. DVT and GI prophylaxis. Further recommendations of the clinical course of the patient DVT prophylaxis: Subcutaneous heparin GI Prophylaxis: Pepcid
[2018-07-11] MEDS: ASPIRIN 325 MG TAB PO SCH (10:07)
[2018-07-11] MEDS: FLUoxetine HCL 10 MG CAP PO SCH (10:07)
[2018-07-11] MEDS: NALTREXONE HCL 50 MG TAB PO SCH (10:07)
[2018-07-11] MEDS: TAMSULOSIN 0.4 MG CAP.ER.24H PO SCH (10:07)
[2018-07-11] MEDS: PREGABALIN 50 MG CAP PO SCH (10:07)
[2018-07-11] MEDS: HEPARIN SODIUM,PORCINE 5,000 UNIT/ML 1 ML VIAL SQ SCH ×2 (10:11→20:30)
[2018-07-11] MEDS ORDERED: CAFFEINE CITRATE 60 MG/3 ML VIAL IV PRN (13:29)
[2018-07-11] MEDS ORDERED: REGADENOSON 0.4 MG/5 ML SYRINGE IV ONE (13:29)
--- NOTE | 2018-07-11 13:35 | P.PN ---
Subjective Progress Note Date: 07/11/18 This is a pleasant 52-year-old gentleman with history of SVT with prior ablation, COPD, GERD, chronic nicotine dependence who follows with Dr. Petersen in the office. He presents to the hospital on this occasion with symptoms of chest discomfort. Patient describes the pain as a sharp stabbing p ain that occurs mostly in the right side of his chest. He does state that he gets occasional associated nausea and at times diaphoresis. His troponins 3 were negative. EKG shows a sinus bradycardia with no acute changes. He had an echocardiogram with Doppler study performed in January of last year which revealed a normal left ventricular systolic function. According to the patient, he is unsure as to when he had his most recent stress test in the office. Chest x-ray does not show any acute process. Blood pressure this morning 108/60 with a heart rate in the 70s. White blood cell count 9.7, hemoglobin 15.2, platelet count 192. Sodium 138, potassium 4.6, BUN 18 and creatinine 0.9. Troponins negative 3. At the time of my examination this morning, patient currently denies chest pain, he did receive morphine at 6 AM which she states helps the pain significantly. 07/11 2018 Patient seen and examined this morning, complaining of some chest pain earlier, very atypical, worsens with deep breathing. Underwent a dobutamine echocardiographic study yesterday which was negative for stress-induced ischemia although 85% of maximum predicted heart rate was not achieved. He was also noted to 1 have one episode of a wide complex tachycardia regular in nature. Initially, patient was recommended to be discharged home, 30 day event monitor on discharge. The patient's was concerned about the episode of chest discomfort this morning, therefore Dr. yong Cage recommended patient undergo a Lexiscan stress test, this will be performed tomorrow. Objective - Vital Signs Vital signs: Vital Signs Temp 97.9 F 07/11/18 08:00 Pulse 49 L 07/11/18 09:00 Resp 16 07/11/18 09:00 BP 133/60 07/11/18 08:00 Pulse Ox 95 07/11/18 08:52 Intake & Output 07/10/18 07/11/18 07/11/18 18:59 06:59 18:59 Intake Total 1040 1600 Balance 1040 1600 Weight 73.3 kg Intake: Intake, IV Titration 800 800 Amount Sodium Chloride 0.9% 1, 800 800 000 ml @ 100 mls/hr IV . Q10H [facility] Rx#:[id number] Oral 240 800 Other: Voiding Method Toilet # Voids 1 3 1 # Bowel Movements 1 - Exam PHYSICAL EXAMINATION: GENERAL: 52-year-old gentleman in no acute distress at the time of my examination HEENT: Head is atraumatic, normocephalic. Pupils equal, round. Sclera anicteric. Conjunctiva are clear. Mucous membranes of the mouth are moist. Neck is supple. There is no elevated jugular venous pressure. No carotid bruit is heard. HEART EXAMINATION: Heart S1, S2 normal. No murmur or gallop heard. CHEST EXAMINATION: Lungs are clear to auscultation and precussion. No chest wall tenderness is noted on palpation or with deep breathing. ABDOMEN: Soft, nontender. Bowel sounds are heard. No organomegaly noted. EXTREMITIES: 2+ peripheral pulses with no evidence of peripheral edema and no calf tenderness noted. NEUROLOGIC patient is awake, alert and oriented 3 . - Labs CBC & Chem 7: 07/09/18 14:23 07/09/18 14:23 Assessment and Plan Plan: Assessment and plan #1 chest pain atypical for acute coronary syndrome. Troponins negative 3. EKG shows a sinus bradycardia with no acute changes. #2 nicotine dependence #3 history of SVT with prior ablation Plan Patient will undergo a Lexiscan stress test tomorrow, he did have a dobutamine echocardiographic study performed did not reveal evidence of stress-induced ischemia, although 85% of predicted heart rate was not attained. DNP note has been reviewed, I agree with a documented findings and plan of care. Patient was seen and examined.
[2018-07-11] MEDS: NITROGLYCERIN SL TABS 0.4 MG TAB SUBLINGUAL PRN (18:51)
[2018-07-11] MEDS: FAMOTIDINE 20 MG TAB PO SCH (20:30)
[2018-07-11] MEDS: traZODone HCL 50 MG TAB PO PRN (22:46)
[2018-07-12] MEDS ORDERED: DOXYCYCLINE 100 MG in SODIUM CHLORIDE 0.9% 100 ML IVPB SCH (09:00)
--- NOTE | 2018-07-12 10:35 | XR ---
EXAMINATION TYPE: XR chest 2V DATE OF EXAM: 07/12/2018 COMPARISON: Chest x-ray from 3 days ago. HISTORY: History of ablation and heart catheterization presents with chest pain and coughing. TECHNIQUE: Frontal and lateral views of the chest are obtained. FINDINGS: There is new left basilar opacity with blunting of left lateral costophrenic angle. There is more subtle blunting of right lateral and posterior costophrenic angles. The cardiac silhouette s ize remains within normal limits. Overlying EKG leads are again seen. The osseous structures are int act. IMPRESSION: New small to tiny left greater than right pleural effusions and patchy left basilar atel ectasis and/or infiltrate. Consider progress study.
[2018-07-12] MEDS: HEPARIN SODIUM,PORCINE 5,000 UNIT/ML 1 ML VIAL SQ SCH ×2 (10:46→21:43)
[2018-07-12] MEDS: ASPIRIN 325 MG TAB PO SCH (10:46)
[2018-07-12] MEDS: FLUoxetine HCL 10 MG CAP PO SCH (10:46)
[2018-07-12] MEDS: FAMOTIDINE 20 MG TAB PO SCH ×2 (10:47→21:43)
[2018-07-12] MEDS: TAMSULOSIN 0.4 MG CAP.ER.24H PO SCH (10:47)
[2018-07-12] MEDS: PREGABALIN 50 MG CAP PO SCH (10:47)
[2018-07-12] MEDS: NALTREXONE HCL 50 MG TAB PO SCH (10:47)
--- NOTE | 2018-07-12 11:40 | NM ---
EXAMINATION TYPE: NM stress lexiscan cardiolite DATE OF EXAM: 07/12/2018 COMPARISON: NONE HISTORY: 52-year-old male with chest pain TECHNIQUE: After the intravenous administration of 10.3 mCi Tc 99m Sestamibi - Cardiolite resting SP ECT images acquired 45 minutes post injection. The patient received 0.4mg Lexiscan, 26.7 mCi Tc 99m Sestamibi - Stress images obtained [address] injection FINDINGS: Review of stress and rest SPECT images demonstrates symmetrical thickening which could be normal or c ould represent a small old apical infarct. No other distinct perfusion abnormality is seen. Gated an alysis shows normal wall motion with an estimated left ventricular ejection fraction of 71 %. TID is calculated at 1.07, within normal limits. IMPRESSION: Apical thinning versus a small old apical infarct. No suspicious reversibility seen.
[2018-07-12] MEDS: IPRATROPIUM 0.5 MG/2.5 ML NEBU INHALATION SCH ×3 (12:15→21:55)
--- NOTE | 2018-07-12 14:06 | EST ---
EXERCISE STRESS AGE: 52 SEX: M HT: 69" WT: 161 PROTOCOL: Lexiscan Cardiolite Stress Test HEART RATE REST: 66 BLOOD PRESSURE REST: 135/82 MAXIMUM HEART RATE ACHIEVED: 88 MAXIMUM BLOOD PRESSURE: 142/73 INDICATIONS: Chest pain. CLINICAL INFORMATION: Baseline rhythm is sinus mechanism rate 66, normal axis and intervals, normal echocardiogram. Baseline blood pressure 135/82 mmHg. Patient received injection of Lexiscan. Electrocardiographic monitoring revealed no evidence of diagnostic ischemic ST deviation. Cardiolite was injected per protocol. CONCLUSION: 1. Nondiagnostic electrocardiograph stress testing. 2. Nuclear images will be reported separately. MMODL / IJN: [id number] /
[2018-07-12] MEDS ORDERED: LEVOFLOXACIN 500MG-D5W PMX 500 MG in DEXTROSE/WATER 1 100ML.BAG IVPB SCH (15:30)
[2018-07-12] MEDS: NITROGLYCERIN SL TABS 0.4 MG TAB SUBLINGUAL PRN (18:29)
[2018-07-12] MEDS: SODIUM CHLORIDE 0.9% 1,000 ML IV SCH ×2 (19:05→19:06)
[2018-07-12] MEDS: traZODone HCL 50 MG TAB PO PRN (21:43)
[2018-07-12 23:55] LABS: Basophils % (A) 0 %; Eosinophils % (A) 1 %; HCT 38.9 % (39.0-53.0); HGB 13.1 gm/dL (13.0-17.5); Lymphocytes # (A) 0.8 k/uL (1.0-4.8); Lymphocytes % (A) 17 %; MCH 30.1 pg (25.0-35.0); MCHC 33.7 g/dL (31.0-37.0); MCV 89.2 fL (80.0-100.0); Mean Platelet Volume 7.6; Monocytes # (A) 0.6 k/uL (0-1.0); Monocytes % (A) 13 %; Neutrophils # (A) 2.9 k/uL (1.3-7.7); Neutrophils % (A) 67 %; Platelet Count 156 k/uL (150-450); RBC 4.37 m/uL (4.30-5.90); RDW 12.9 % (11.5-15.5); WBC 4.4 k/uL (3.8-10.6)
[2018-07-13 00:02] LABS: Calcium 9.2 mg/dL (8.4-10.2)
--- NOTE | 2018-07-13 00:14 | P.PN ---
Subjective On-call hospitalist start covering Dr. Foley on 07/11/2018 This is a pleasant 52 years old male with past medical history of COPD, GERD, osteoarthritis, supraventricular tachycardia. Patient's current cigarette smoker about half pack per day. Patient presents because of chest pain. Patient states that chest pain has been going on for 4-5 years now on and off, its mainly central and radiating to the left side. However at this time pain became more severe up to 8-10/10 in severity. Described as nonspecific, with no precipitating factors however it seems relieved with aspirin and nitro medication, currently pain is down to 1/10 in severity. No dyspnea. No sweating. No nausea vomiting. No change in urine or bowel habits. No fever. No coughing. Labs were unremarkable. Patient is already been evaluated by rip saw operator team. date of service: 07/13/2018 pt is seen and examined at bed side, pt still has left side chest pain , sharp ,increase with coughing and deep inspiration . repeat cxr suspicous for pneumonia with small bilateral pl effusion , pt was started on levaquin. cardiology input is appreciated. Objective - Vital Signs Vital signs: Vital Signs Temp 98.4 F 07/12/18 20:00 Pulse 72 07/12/18 20:00 Resp 18 07/12/18 20:00 BP 124/70 07/12/18 20:00 Pulse Ox 96 07/12/18 20:00 Intake & Output 07/12/18 07/12/18 07/13/18 06:59 18:59 06:59 Intake Total 500 240 Output Total 1000 Balance 500 -760 Intake: Intake, IV Titration 500 Amount Sodium Chloride 0.9% 1, 500 000 ml @ 75 mls/hr IV . [id number] [facility] Rx#:[id number] Oral 240 Output: Urine 1000 Other: Voiding Method Toilet Toilet # Voids 1 - Exam GENERAL: The patient is alert and oriented x3, not in any acute distress. Well developed, well nourished. HEENT: Pupils are round and equally reacting to light. EOMI. No scleral icterus. No conjunctival pallor. Normocephalic, atraumatic. No pharyngeal erythema. No thyromegaly. CARDIOVASCULAR: S1 and S2 present. No murmurs, rubs, or gallops. PULMONARY: Chest is clear to auscultation, no wheezing or crackles. ABDOMEN: Soft, nontender, nondistended, normoactive bowel sounds. No palpable organomegaly. MUSCULOSKELETAL: No joint swelling or deformity. EXTREMITIES: No cyanosis, clubbing, or pedal edema. NEUROLOGICAL: Gross neurological examination did not reveal any focal deficits. SKIN: No rashes. - Labs CBC & Chem 7: 07/12/18 23:31 07/12/18 23:31 Labs: Abnormal Lab Results - Last 24 Hours (Table) 07/12/18 Range/Units 23:31 Hct 38.9 L (39.0-53.0) % Lymphocytes # 0.8 L (1.0-4.8) k/uL Assessment and Plan Assessment: Chest pain, stress test was negative. Improving most likely , pt has community acquired pna. Ventricular tachycardia during stress test, versus other arrhythmia. Cartilage team are following the patient. History of supraventricular tachycardia History of COPD, not in acute exacerbation History of GERD History of osteoarthritis Plan: This is a pleasant 52 years old male who presents with chest pain. His chest pain is significantly improved with medication. c/w antibiotic. Patient con tinued on aspirin. Cardiology evaluated the patient. His testis was negative with some arrhythmia and his been currently evaluated by rip saw operator team.Labs and medication were reviewed.. Continue same treatment. Continue with symptomatic treatment. Resume home medication. Monitor lytes and vitals. DVT and GI prophylaxis. Further recommendations of the clinical course of the patient DVT prophylaxis: Subcutaneous heparin GI Prophylaxis: Pepcid
[2018-07-13] MEDS: IPRATROPIUM 0.5 MG/2.5 ML NEBU INHALATION SCH ×3 (08:56→17:07)
[2018-07-13 09:46] VITALS: RESP 18
[2018-07-13] MEDS: TAMSULOSIN 0.4 MG CAP.ER.24H PO SCH (09:46)
[2018-07-13] MEDS: NALTREXONE HCL 50 MG TAB PO SCH (09:46)
[2018-07-13] MEDS: FAMOTIDINE 20 MG TAB PO SCH (09:46)
[2018-07-13] MEDS: FLUoxetine HCL 10 MG CAP PO SCH (09:46)
[2018-07-13] MEDS: ASPIRIN 325 MG TAB PO SCH (09:46)
[2018-07-13] MEDS: PREGABALIN 50 MG CAP PO SCH (09:46)
[2018-07-13] MEDS: HEPARIN SODIUM,PORCINE 5,000 UNIT/ML 1 ML VIAL SQ SCH (09:48)
[2018-07-13] MEDS: SODIUM CHLORIDE 0.9% 1,000 ML IV SCH (10:35)
[2018-07-13 14:52] VITALS: BP 130/78; TEMP 97.9
[2018-07-13] MEDS ORDERED: LEVOFLOXACIN 500 MG TAB PO SCH (16:00)
[2018-07-13 17:58] VITALS: PULSE 76
--- NOTE | 2018-07-13 18:09 | P.DS ---
Providers Date of admission: 07/09/18 16:54 Attending physician: Bogdan Foley Consults: 07/09/18 16:54 Consult Physician Urgent Consulting Provider: Epifanio Petersen Consult Reason/Comments: chest pain Do you want consulting provider notified?: Yes Primary care physician: Epi Boyd [facility] Course: Diagnoses: Chest pain, stress test was negative. Cardiology cleared patient for discharge community acquired pna. May be contributing to the patient chest pain. Improving on antibiotic Ventricular tachycardia during stress test, versus other arrhythmia. Cardiology team recommended for today monitoring. History of supraventricular tachycardia History of COPD, not in acute exacerbation History of GERD History of osteoarthritis Hospital course: This is a pleasant 52 years old male with past medical history of COPD, GERD, osteoarthritis, supraventricular tachycardia. Patient's current cigarette smoker about half pack per day. Patient presents because of chest pain. Patient has been evaluated by [employer] and he did have a dobutamine echocardiographic study performed which did not reveal evidence of stress- induced ischemia, although 85% of predicted heart rate was not attained. However patient chest pain has significantly improved from 8/10 in severity coming down to 1/10 in severity, and later on stated is significantly improved even further, and that his chest pain that happened for days and weeks is improving now. This chest pain was mainly on the left side, looks like sharp and worsened with deep breathing and coughing, which is more concerning of pulmonary issue, repeat chest x-ray showing bilateral small pleural effusion, and patchy left basilar atelectasis and/or infiltrate ,( as per radiology report), patient was started on antibiotic and he starts feeling better today. His not dyspneic, and with no cough and his chest pain is improving slowly. Patient thinks he can be discharged home. Patient has been cleared by cardiology Problems and management plan was discussed with the patient and he verbalized understanding and acceptance Patient was found stable and can be discharged home and guarded prognosis, however he needs follow-up as an outpatient. Patient agrees with appointment and timing made for him with Dr. Song and his PCP Dr. Boyd and he stated he will follow-up. Also contact information for e commerce specialist is provided for the patient. Prescription for Levaquin is provided for the patient Gen: patient is a AAOx3, no distress CVS: S1-S2, RRR, no murmur Lungs: B/L CTA, no wheezing Abdomen: soft, no distention, no tenderness, positive bowel sounds Extremity: no leg edema or induration Time spent more than 35 minutes Patient Condition at Discharge: Stable Plan - Discharge Summary New Discharge Prescriptions: New Aspirin 325 mg PO DAILY tab Levofloxacin [Levaquin] 500 mg PO DAILY@1600 7 Days #7 tab Nitroglycerin Sl Tabs [Nitrostat] 0.4 mg SUBLINGUAL Q5M PRN #20 tab PRN Reason: Chest Pain Continue traZODone HCL 150 mg PO HS PRN PRN Reason: Insomnia Albuterol Inhaler [Ventolin Hfa Inhaler] 1 - 2 puff INHALATION RT-Q6H PRN PRN Reason: Shortness Of Breath Pregabalin [Lyrica] 50 mg PO DAILY Tamsulosin [Flomax] 0.4 mg PO DAILY FLUoxetine HCL [PROzac] 30 mg PO DAILY Albuterol Nebulized [Ventolin Nebulized] 2.5 mg INHALATION RT-QID PRN PRN Reason: Shortness Of Breath Ipratropium [place] [Atrovent Hfa] 2 puff INHALATION QID #1 inhaler Discontinued Naltrexone HCl [Revia] 50 mg PO DAILY Discharge Medication List Albuterol Inhaler [Ventolin Hfa Inhaler] 1 - 2 puff INHALATION RT-Q6H PRN 05/14/14 [History] traZODone HCL 150 mg PO HS PRN 05/14/14 [History] Pregabalin [Lyrica] 50 mg PO DAILY 01/27/16 [History] Tamsulosin [Flomax] 0.4 mg PO DAILY 05/26/17 [History] Albuterol Nebulized [Ventolin Nebulized] 2.5 mg INHALATION RT-QID PRN 02/18/18 [History] FLUoxetine HCL [PROzac] 30 mg PO DAILY 02/18/18 [History] Ipratropium [place] [Atrovent Hfa] 2 puff INHALATION QID #1 inhaler 02/20/18 [Rx] Aspirin 325 mg PO DAILY tab 07/13/18 [Rx] Levofloxacin [Levaquin] 500 mg PO DAILY@1600 7 Days #7 tab 07/13/18 [Rx] Nitroglycerin Sl Tabs [Nitrostat] 0.4 mg SUBLINGUAL Q5M PRN #20 tab 07/13/18 [Rx] Follow up Appointment(s)/Referral(s): Mitch Garcia MD [STAFF PHYSICIAN] - 1 Week (e commerce specialist ) Epifanio Petersen MD [STAFF PHYSICIAN] - 07/25/18 2:00 pm (With Radha RUANO) Epi Boyd DO [Primary Care Provider] - 07/18/18 10:15 am (Monday) Patient Instructions/Handouts: Chest Pain (DC), Bradycardia (DC) Discharge/Stand Alone Forms: Work/Release Restrictions Form Discharge Disposition: HOME SELF-CARE
== END 2018-07-13 18:05 | disposition home or self-care (01) ==
LOC: EC 13:59 → 1SOBS 16:54 → 3SCARD 20:47
PROVIDERS: ADMIT Hospitalist; ATTEND Hospitalist
DX: R07.89 Other chest pain (principal); R11.0 Nausea; R61 Generalized hyperhidrosis; R94.39 Abnormal result of other cardiovascular function study; R00.1 Bradycardia, unspecified; J18.9 Pneumonia, unspecified organism; I47.2 Ventricular tachycardia; I47.1 Supraventricular tachycardia; J44.0 Chronic obstructive pulmonary disease with (acute) lower respiratory infection; K21.9 Gastro-esophageal reflux disease without esophagitis; M19.90 Unspecified osteoarthritis, unspecified site; F17.210 Nicotine dependence, cigarettes, uncomplicated; F41.9 Anxiety disorder, unspecified; F32.9 Major depressive disorder, single episode, unspecified; N40.0 Benign prostatic hyperplasia without lower urinary tract symptoms; F51.04 Psychophysiologic insomnia; Z79.899 Other long term (current) drug therapy; Z81.1 Family history of alcohol abuse and dependence; Z83.2 Family history of diseases of the blood and blood-forming organs and certain disorders involving the immune mechanism; Z83.79 Family history of other diseases of the digestive system; Z82.49 Family history of ischemic heart disease and other diseases of the circulatory system
CPT/HCPCS: 96376; 96361 ×2; 96365; 96367; 96372 ×3; 96375 ×2; 99285; 36415; 94640 ×5; 94760; 93005; 93017; 93306; 93351; 97161; 80061; 80053; 80048; 84484 ×2; 85025 ×2; 85610; 85730; 71046 ×2; 78452; G0378 ×5; A9500; J1250; J2270 ×2; J1644 ×3; J1956; J2785

== ENCOUNTER 2018-08-31 06:28 | Day surgery (SDC) | payer OTHER ==
[~2018-08-31 06:28] MED LIST changes: -ACETAMINOPHEN IV (For NPO) 1,000 MG in EMPTY BAG 1 BAG IVPB ONE; +ALPRAZolam 0.25 MG TAB PO PRN; +ALPRAZolam 0.5 MG TAB PO PRN; -DEXAMETHASONE SOD PHOSPHATE 10 MG/ML 1 ML VIAL IV ONE; -HEPARIN SODIUM,PORCINE 5,000 UNIT/ML 1 ML VIAL SQ ONE; -LACTATED RINGERS 1,000 ML IV SCH; -MIDAZOLAM 2 MG/2 ML VIAL IV PRN; +NITROGLYCERIN SL TABS 0.4 MG TAB SUBLINGUAL PRN; -ONDANSETRON 4 MG/2 ML VIAL IVP ONE; -SCOPOLAMINE 1.5MG/72HR PATCH TRANSDERM ONE; +SODIUM CHLORIDE 0.9% 1,000 ML in EMPTY BAG 1 BAG IV ONE; -ceFAZolin IN SWFI 2 GM/20 ML SYRINGE IVP ONE; -fentaNYL (PF) 50 MCG/ML 2 ML AMP IV PRN
[2018-08-31] MEDS ORDERED: ASPIRIN 325 MG TAB PO ONE (07:00)
[2018-08-31] MEDS ORDERED: ATORVASTATIN 80 MG TAB PO ONE (07:00)
[2018-08-31 07:05] LABS: Basophils % (A) 0 %; Eosinophils # (A) 0.2 k/uL (0-0.7); Eosinophils % (A) 4 %; HCT 41.4 % (39.0-53.0); HGB 13.8 gm/dL (13.0-17.5); Lymphocytes # (A) 2.1 k/uL (1.0-4.8); Lymphocytes % (A) 33 %; MCH 29.8 pg (25.0-35.0); MCHC 33.3 g/dL (31.0-37.0); MCV 89.6 fL (80.0-100.0); Monocytes # (A) 0.5 k/uL (0-1.0); Monocytes % (A) 7 %; Neutrophils # (A) 3.5 k/uL (1.3-7.7); Neutrophils % (A) 53 %; Platelet Count 216 k/uL (150-450); RBC 4.62 m/uL (4.30-5.90); RDW 13.4 % (11.5-15.5); WBC 6.5 k/uL (3.8-10.6)
[2018-08-31] MEDS ORDERED: SODIUM CHLORIDE 0.9% 1,000 ML IV ONE (07:08)
[2018-08-31 07:24] LABS: Calcium 9.5 mg/dL (8.4-10.2); Potassium 3.8 mmol/L (3.5-5.1)
[2018-08-31] MEDS ORDERED: fentaNYL (PF) 50 MCG/ML 2 ML AMP IV ONE (07:34)
[2018-08-31] MEDS ORDERED: LIDOCAINE 1% INJ 10MG/ML (20 ML MDV) SQ ONE (07:39)
[2018-08-31] MEDS ORDERED: VERAPAMIL SYRINGE (5 MG/10 ML) INTRAARTER ONE (07:40)
[2018-08-31] MEDS ORDERED: BIVALIRUDIN 250 MG in SODIUM CHLORIDE 0.9% 50 ML IV ONE (07:51)
[2018-08-31] MEDS ORDERED: MIDAZOLAM (PF) 2 MG/2 ML VIAL IVP ONE (07:51)
[2018-08-31] MEDS ORDERED: BIVALIRUDIN BOLUS 250 MG/50 ML IV ONE ×2 (07:52)
[2018-08-31] MEDS ORDERED: CLOPIDOGREL 75 MG TAB PO ONE (07:54)
[2018-08-31] MEDS ORDERED: NITROGLYCERIN 1000MCG/10ML SYRINGE INTRACORON ONE (08:16)
[2018-08-31] MEDS ORDERED: ADENOSINE 90 MG in SODIUM CHLORIDE 0.9% 60 ML IVP ONE (08:18)
[2018-08-31] MEDS ORDERED: IOPAMIDOL-370 125ML BTL INJ ONE (08:20)
[2018-08-31] MEDS ORDERED: IOPAMIDOL-370 100ML BTL INJ ONE (08:25)
[2018-08-31] MEDS ORDERED: ATROPINE SULFATE 0.1 MG/ML 10ML SYRINGE IV PRN (08:45)
[2018-08-31] MEDS ORDERED: SODIUM CHLORIDE 0.9% 1,000 ML IV SCH (08:45)
[2018-08-31] MEDS ORDERED: RX INFO: IV CONTRAST WAS GIVEN 1 EACH MISC MISCELLANE PRN (08:45)
[2018-08-31] MEDS ORDERED: ZOLPIDEM 5 MG TAB PO PRN (08:45)
[2018-08-31] MEDS ORDERED: MAG HYDROX/AL HYDROX/SIMETH 30 ML CUP PO PRN (08:45)
[2018-08-31] MEDS ORDERED: NITROGLYCERIN SL TABS 0.4 MG TAB SUBLINGUAL PRN (08:45)
[2018-08-31] MEDS ORDERED: traZODone HCL 50 MG TAB PO PRN (08:46)
--- NOTE | 2018-08-31 11:57 | CC ---
CARDIAC CATHETERIZATION REPORT Mr. Oropeza is a 52-year-old male who is followed by Dr. Petersen who has been complaining of chest discomfort and had runs of ventricular tachycardia on his treadmill. In view of that, he will be referred to undergo cardiac catheterization. The procedures, risks and complication were discussed with the patient who is in full understanding and agreement. PROCEDURE: Patient was brought to the slab installer in a fasting semi-sedated state after receiving fentanyl and Benadryl and achieving moderate conscious sedated state. Using Xylocaine anesthesia and Seldinger technique, a 6-[place] sheath was introduced in the right radial artery. Selective right and left coronary angiography performed using a 5- [place] 3.5 bend right Dejah catheter. Multiple views including hemiaxial views obtained. Following that, angioplasty and stenting was performed. Following that, 5- [place] tight pigtail catheter introduced into the left ventricle and a 30 degree SERNA view of the left ventricle was obtained. Following that, catheter and sheath were removed. Hemostasis was obtained with deployment of a TR band. There was no immediate complication. Patient is returned to his room in stable condition. Of note, the patient received Angiomax per protocol as well as intra-arterial verapamil. FINDINGS: LEFT MAIN: This is a large-sized vessel bifurcating into left circumflex, left anterior descending artery. Left main coronary artery has no evidence of high-grade stenosis. LEFT ANTERIOR DESCENDING ARTERY: This is a large-sized vessel, reaching toward the apex with a wraparound apex segment, giving rise to two diagonal branches. The left anterior descending artery has a 20% plaque after the takeoff of the first septal grounds supervisor. The rest of the vessel has no high-grade stenosis. LEFT CIRCUMFLEX: This is a nondominant vessel, large in caliber, giving rise to a large obtuse marginal branch. The proximal segment of the left circumflex has a tubular lesion of 50% to 60%. The rest of the vessel has no high-grade stenosis. RIGHT CORONARY ARTERY: This is a dominant vessel, large in caliber, bifurcating distally into PDA and posterolateral segment branches. The right coronary artery in the proximal segment is calcified in the mid segment, has an eccentric 70% lesion. The rest of the vessel has no high-grade stenosis. LEFT VENTRICULOGRAM: Left ventriculogram is performed in 30 degree SERNA view and revealed normal left ventricular size and systolic function. Ejection fraction 60%. There was no significant mitral regurgitation. HEMODYNAMICS: There was no gradient across the aortic valve. The left ventricular end- diastolic pressure was 14-16 mmHg. CONCLUSION: 1. Significant disease in the mid right coronary artery. 2. Borderline significant disease in the proximal left circumflex. 3. Mild disease in the left anterior descending artery. 4. Normal left ventricular size and systolic function. RECOMMENDATION: In view of finding anatomy; however, recommend proceeding with angioplasty and stenting of the right coronary artery and fractional flow reserve measurement of the left circumflex and depending on those findings, further recommendation will be made. Those findings and recommendation were discussed with the patient and he was in full understanding and agreement. MMODL / IJN: [id number] /
--- NOTE | 2018-08-31 12:03 | PTCA ---
PERCUTANEOUSTRANS CORORONARY ANGIOGRAPHY Mr. Oropeza is a 52-year-old male with a known history of chronic tobacco use, who had evidence of ventricular ectopic activity on the treadmill. He was evaluated by Dr. Petersen, referred to undergo cardiac catheterization, revealed critical stenosis involving the mid right coronary artery. In view of that, recommendation was made regarding angioplasty and stenting. The procedures, risks and complication were discussed with the patient who is in full understanding and agreement. PROCEDURE: A 6-[place]izen [place] FR3.5 guiding catheter introduced into the system. After cannulating the right coronary ostium, a 0.014 advanced medium weight J-wire was advanced across the lesion, positioned distally, then a 3.5 x 15 mm Xience Zoey stent was deployed, postdilated at 16 atmospheres. Following that, and after removing the balloon, a 4.0 x 12 mm [place] Trek balloon was advanced and one inflation at 12 atmospheres was done. After the last inflation, after appropriate wait, the balloon and the guidewire were withdrawn back in the guiding catheter. Images were obtained and repeated. Those images reveal stable successful stenting. At that point, a 6-[place] FL3.5 guiding catheter introduced into the system. After cannulating the left main using a Doppler flow wire, the wire was introduced in the distal left circumflex and IFR and FFR were calculated per protocol. Following that, the wire and the guiding catheter were removed, left ventriculogram was performed. Following that, catheter and sheath were removed. Hemostasis was obtained with deployment of a TR band. There was no immediate complication. Patient is returned to his room in stable condition. Of note, patient received Angiomax per protocol as well as oral loading dose of clopidogrel. He had chest discomfort with the inflation that resolved at the end of the procedure. There was no significant EKG changes. RESULTS: 1. Successful stenting of the mid right coronary artery with reduction of stenosis from 100% to 0%. 2. Fractional flow reserve of the left circumflex of 0.97 with IFR of 1 consistent with non- hemodynamically significant lesion. RECOMMENDATION: I have recommended to continue medical therapy with the dual antiplatelet treatment. The importance of that was discussed with the patient and his family who are in full understanding and agreement. Duration of the procedure is 51 minutes. MMODL / IJN: [id number] / [facility]PITALSilvestre
[2018-08-31] MEDS: ASPIRIN 81 MG PO SCH (14:24)
[2018-08-31] MEDS: METOPROLOL TARTRATE 25 MG TAB PO SCH ×2 (14:27→21:03)
[2018-08-31] MEDS: PREGABALIN 50 MG CAP PO SCH (14:27)
[2018-08-31] MEDS: TAMSULOSIN 0.4 MG CAP.ER.24H PO SCH (14:28)
[2018-08-31 14:40] VITALS: BMI 22.8
[2018-08-31] MEDS: FLUoxetine HCL 10 MG CAP PO SCH (15:29)
[2018-08-31] MEDS ORDERED: PNEUMOCOCCAL VACC-PNEUMOVAX 23 25 MCG/0.5 ML VIAL IM ONE (16:03)
[2018-08-31] MEDS: IPRATROPIUM 0.5 MG/2.5 ML NEBU INHALATION SCH ×2 (16:47→21:03)
[2018-08-31] MEDS ORDERED: ATORVASTATIN 40 MG TAB PO SCH (21:00)
[2018-09-01 06:57] LABS: Anion Gap 7 mmol/L; Blood Urea Nitrogen 13 mg/dL (9-20); Calcium 9.5 mg/dL (8.4-10.2); Carbon Dioxide 24 mmol/L (22-30); Chloride 108 mmol/L (98-107); Glucose 91 mg/dL (74-99); Potassium 4.5 mmol/L (3.5-5.1); Sodium 139 mmol/L (137-145)
[2018-09-01] MEDS: IPRATROPIUM 0.5 MG/2.5 ML NEBU INHALATION SCH (08:10)
--- NOTE | 2018-09-01 08:36 | PN ---
PROGRESS NOTE Mr. Oropeza is a 52-year-old male who is followed by Dr. Petersen and had an abnormal stress test with of ventricular ectopic activity, underwent cardiac catheterization, was found to have critical stenosis involving the mid right coronary artery with borderline significant stenosis in the left circumflex. He underwent stenting of the mid right coronary artery and measurement of the fractional flow reserve that was normal in the left circumflex. He is doing well this morning. He is ambulating without difficulty. He is denying any chest pain. No dizziness. He denies any palpitation. He continues on aspirin once a day, Plavix 75 mg daily, Lipitor 40 mg daily, and metoprolol tartrate 25 mg twice a day. PHYSICAL EXAMINATION: Blood pressure 113/60 with a heart rate in the 50s. LUNGS: Clear. HEART: Regular rate and rhythm S1, S2. No S3. No rub. ABDOMEN: Soft, nontender. Right radial pulse intact. EKG shows no acute changes. BUN and creatinine 13 and 1.0. Potassium 4.5. IMPRESSION: 1. Status post stenting of the right coronary artery. 2. Non hemodynamically significant lesion in the left circumflex. 3. History of ventricular ectopic activity. RECOMMENDATION: Patient will be discharged home today and followed as an outpatient by Dr. Petersen. MMODL / IJN: [id number] /
[2018-09-01] MEDS ORDERED: CLOPIDOGREL 75 MG TAB PO SCH (09:00)
[2018-09-01] MEDS: PREGABALIN 50 MG CAP PO SCH (10:00)
[2018-09-01] MEDS: TAMSULOSIN 0.4 MG CAP.ER.24H PO SCH (10:00)
[2018-09-01] MEDS: ASPIRIN 81 MG PO SCH (10:01)
[2018-09-01] MEDS: FLUoxetine HCL 10 MG CAP PO SCH (10:01)
[2018-09-01] MEDS: METOPROLOL TARTRATE 25 MG TAB PO SCH (10:01)
[2018-09-01 10:47] VITALS: BP 105/87; PULSE 60; RESP 18; TEMP 98.1
== END 2018-09-01 11:10 | disposition home or self-care (01) ==
LOC: CATHCVL 06:28 → 3SCARD 08:28 → CATHCVL 09-01 11:10
PROVIDERS: ATTEND Internal Medicine Interventional Cardiology
DX: I25.10 Atherosclerotic heart disease of native coronary artery without angina pectoris (principal); I25.84 Coronary atherosclerosis due to calcified coronary lesion; I49.3 Ventricular premature depolarization; I47.1 Supraventricular tachycardia; I47.2 Ventricular tachycardia; F17.210 Nicotine dependence, cigarettes, uncomplicated; Z23 Encounter for immunization; Z79.899 Other long term (current) drug therapy
CPT/HCPCS: 94640 ×3; 94760; 93571; 93458; 85347; 80048 ×2; 85025; 90732; C9600; C1769 ×2; C1887 ×2; C1894; C1725; C1874; G0009; J2001; J3010; J0583; J0153; Q9967 ×2; J2250

== ENCOUNTER 2019-06-10 20:15 | Emergency (ER) | payer OTHER ==
[2019-06-10 20:26] VITALS: RESP 18
[2019-06-10] MEDS ORDERED: KETOROLAC 60 MG/2 ML VIAL IM STA (21:13)
--- NOTE | 2019-06-10 21:43 | ED ---
Back Pain HPI - General Chief Complaint: Back Pain/Injury Stated Complaint: lower back pain Time Seen by Provider: 06/10/19 20:54 Source: patient Limitations: no limitations - History of Present Illness Initial Comments: Patient is a 53-year-old male presenting to emergency Department with complaints of low back pain that started this morning. Patient states he has a history of chronic low back pain. Patient went to lift up his cat from the ground and when he stood up he felt a large pole in his lower back. Patient states he was able to move around a little bit and put some icy hot in his lower back and he did lay down to take a nap. Patient states he got up feeling a little bit better so he went to work for a few hours and then had to leave because his back pain was increasing. Patient denies any fever, chills, numbness or tingling in his lower extremities, bowel or bladder incontinence. He states this feels similar to the previous times he's done this to his low back. He states he did take a Tylenol at home with minor relief in symptoms. He has no other complaints at this time. Upon arrival to the ER his vital signs are stable. - Related Data Home Medications Medication Instructions Recorded Confirmed Albuterol Inhaler [Ventolin Hfa 1 - 2 puff INHALATION RT-Q6H PRN 05/14/14 08/31/18 Inhaler] traZODone HCL 150 mg PO HS PRN 05/14/14 08/31/18 Pregabalin [Lyrica] 50 mg PO DAILY 01/27/16 08/31/18 Tamsulosin [Flomax] 0.4 mg PO DAILY 05/26/17 08/31/18 Albuterol Nebulized [Ventolin 2.5 mg INHALATION RT-QID PRN 02/18/18 08/31/18 Nebulized] FLUoxetine HCL [PROzac] 30 mg PO DAILY 02/18/18 08/31/18 Isosorbide Mononitrate ER [Imdur] 30 mg PO DAILY 08/31/18 08/31/18 Previous Rx's Medication Instructions Recorded Ipratropium [place] [Atrovent Hfa] 2 puff INHALATION QID #1 inhaler 02/20/18 Nitroglycerin Sl Tabs [Nitrostat] 0.4 mg SUBLINGUAL Q5M PRN #20 tab 07/13/18 Aspirin 81 mg PO DAILY chew 09/01/18 Atorvastatin [Lipitor] 40 mg PO HS #90 tab 09/01/18 Clopidogrel [Plavix] 75 mg PO DAILY #90 tab 09/01/18 Metoprolol Tartrate [Lopressor] 25 mg PO BID #180 tab 09/01/18 Cyclobenzaprine [Flexeril] 5 mg PO BID PRN #10 tablet 06/10/19 Allergies Allergy/AdvReac Type Severity Reaction Status Date / Time No Known Allergies Allergy Verified 06/10/19 20:26 Review of Systems ROS Statement: Those systems with pertinent positive or pertinent negative responses have been documented in the HPI. ROS Other: All systems not noted in ROS Statement are negative. Past Medical History Past Medical History: Chest Pain / Angina, COPD, GERD/Reflux, Myocardial Infarction (MS), Osteoarthritis (OA), Supraventricular Tachycardia (SVT) Additional Past Medical History / Comment(s): HX SVT, BORN WITH BOTH KIDNEYS ON LT. SIDE, Last Myocardial Infarction Date:: 2006 History of Any Multi-Drug Resistant Organisms: None Reported Past Surgical History: Cardiac Ablation, Heart Catheterization, Heart Catheterization With Stent, Hernia Repair Additional Past Surgical History / Comment(s): JOSE INGUINAL HERNIA REPAIR, JOSE CARPAL TUNNEL release, Heart cath with stent to RCA 08/31/2018 Past Anesthesia/Blood Transfusion Reactions: No Reported Reaction Date of Last Stent Placement:: 08/31/2018 Past Psychological History: ADD/ADHD, Anxiety, Depression Smoking Status: Current every day smoker Past Alcohol Use History: None Reported Past Drug Use History: None Reported - Past Family History Father Family Medical History: Unable to Obtain Additional Family Medical History / Comment(s): PASSED WHEN PT WAS 7 YEARS OLD. WAS AN ALCOHOLIC Mother Family Medical History: Deep Vein Thrombosis (DVT), Hypertension Additional Family Medical History / Comment(s): DIVERTICULTIS, DEPRESSION General Exam - General Exam Comments Initial Comments: GENERAL: Well-appearing, well-nourished and in no acute distress. HEAD: Atraumatic, normocephalic. EYES: Pupils equal round and reactive to light, extraocular movements intact, sclera anicteric, conjunctiva are normal. ENT: Moist mucous membranes. NECK: Normal range of motion, supple without lymphadenopathy or JVD. LUNGS: Breath sounds clear to auscultation bilaterally and equal. No wheezes rales or rhonchi. HEART: Regular rate and rhythm without murmurs, rubs or gallops. ABDOMEN: Soft, nontender, normoactive bowel sounds. No guarding, no rebound. No masses appreciated. : Deferred EXTREMITIES: Patient has equal and bilateral sensation of lower extremities, 5 out of 5 strength of the lower extremities. Patient has mild pain in the lumbar paraspinals, more on the left side. No midline tenderness. Normal range of motion, no pitting or edema. No clubbing or cyanosis. NEUROLOGICAL: Cranial nerves II through XII grossly intact. Normal speech, normal gait. PSYCH: Normal mood, normal affect. SKIN: Warm, Dry, normal turgor, no rashes or lesions noted. Limitations: no limitations Course Vital Signs 06/10/19 20:22 Temperature 97.8 F Pulse Rate 67 Respiratory 18 Rate Blood Pressure 140/88 O2 Sat by Pulse 97 Oximetry Medical Decision Making - Medical Decision Making Patient is a 53-year-old male presenting with low back pain started this morning after. Patient has history of chronic low back pain and he states this feels similar to his previous exacerbations. His exam is unremarkable. Patient was given Toradol today in the ER and will be given trial of muscle relaxer for at home. Patient will continue Tylenol or Motrin at home as needed for discomfort as well as hot packs to the area. He is in agreement with this plan of care. He is stable for discharge. Return parameters were discussed with the patient he verbalizes understanding. Disposition Clinical Impression: Lumbar back pain Disposition: HOME SELF-CARE Condition: Stable Instructions (If sedation given, give patient instructions): Acute Low Back Pain (ED) Additional Instructions: Please return to the Emergency Department if symptoms worsen or any other concerns. May use ibuprofen or Tylenol for pain relief. Use hot packs to the area. Take Flexeril at night for muscle spasms. Follow up with PCP if symptoms persist. Prescriptions: Cyclobenzaprine [Flexeril] 5 mg PO BID PRN #10 tablet PRN Reason: Muscle Spasm Is patient prescribed a controlled substance at d/c from ED?: No Referrals: Epi Boyd DO [Primary Care Provider] - 1-2 days
[2019-06-10 22:14] VITALS: BP 139/78; PULSE 78; TEMP 97.9
== END 2019-06-10 22:14 | disposition home or self-care (01) ==
LOC: EC 20:15
DX: M54.5 Low back pain (principal); G89.29 Other chronic pain; J44.9 Chronic obstructive pulmonary disease, unspecified; F41.9 Anxiety disorder, unspecified; F32.9 Major depressive disorder, single episode, unspecified; I25.2 Old myocardial infarction; F17.200 Nicotine dependence, unspecified, uncomplicated; Z79.899 Other long term (current) drug therapy; Z95.5 Presence of coronary angioplasty implant and graft
CPT/HCPCS: 99283; 96372; J1885

== ENCOUNTER → 2019-10-01 | Outpatient (CLI) | payer OTHER | END | disposition home or self-care (01) | LOC: LABWHC1 08:10 | PROVIDERS: ATTEND Family Medicine | DX: Z11.59 Encounter for screening for other viral diseases (principal) ==

== ENCOUNTER 2019-12-22 19:35 | Inpatient (IN) | payer MEDICAID, OTHER ==
[2019-12-22] MEDS ORDERED: LORazepam 2 MG/ML INJ IV PRN ×2 (20:32)
[2019-12-22] MEDS ORDERED: THIAMINE 100 MG/ML 2 ML VIAL IM STA (20:32)
[2019-12-22] MEDS: LORazepam 2 MG/ML INJ IV PRN (20:58)
--- NOTE | 2019-12-22 21:15 | ED ---
General Adult HPI - General Source: patient, family, RN notes reviewed, old records reviewed Mode of arrival: wheelchair Limitations: no limitations <Jesus Husain - Last Filed: 12/22/19 23:09> <Bhargav Kaufman - Last Filed: 12/23/19 22:25> <Johnathan Garcia - Last Filed: 12/24/19 07:03> - General Chief complaint: Psychiatric Symptoms Stated complaint: Poss ETOH Time Seen by Provider: 12/22/19 19:53 - History of Present Illness Initial comments: 54-year-old male patient past medical history of depression presents to ED for alcohol intoxication, suicidal ideations. Patient reports that he began drinking today while fishing. Patient drank between a pint and a fifth. Reports that he has been very depressed recently. States he made some suicidal ideations. Patient reportedly has prior history of suicide attempt number of years back with a gun and then also with prescription medication. Patient denying anything to hurt himself today. Denying any acute physical complaints. (Jesus Husain) - Related Data Home Medications Medication Instructions Recorded Confirmed Pregabalin [Lyrica] 50 mg PO DAILY 01/27/16 12/23/19 Tamsulosin [Flomax] 0.4 mg PO DAILY 05/26/17 12/23/19 Albuterol Nebulized [Ventolin 2.5 mg INHALATION RT-QID PRN 02/18/18 12/23/19 Nebulized] Albuterol Inhaler [Ventolin Hfa 2 puff INHALATION RT-QID PRN 12/23/19 12/23/19 Inhaler] Beclomethasone Dipropionate [Qvar 2 puff INHALATION RT-BID 12/23/19 12/23/19 80mcg Redihaler] Desvenlafaxine Succinate [Pristiq] 50 mg PO DAILY 12/23/19 12/23/19 Ipratropium [place] [Atrovent Hfa] 2 puff INHALATION RT-QID 12/23/19 12/23/19 Omeprazole Magnesium 20 mg PO DAILY 12/23/19 12/23/19 Previous Rx's Medication Instructions Recorded Nitroglycerin Sl Tabs [Nitrostat] 0.4 mg SUBLINGUAL Q5M PRN #20 tab 07/13/18 Aspirin 81 mg PO DAILY chew 09/01/18 Atorvastatin [Lipitor] 40 mg PO HS #90 tab 09/01/18 Clopidogrel [Plavix] 75 mg PO DAILY #90 tab 09/01/18 Allergies Allergy/AdvReac Type Severity Reaction Status Date / Time No Known Allergies Allergy Verified 12/22/19 19:46 Review of Systems ROS Other: All systems not noted in ROS Statement are negative. <Jesus Husain - Last Filed: 12/22/19 23:09> ROS Other: All systems not noted in ROS Statement are negative. <Bhargav Kaufman - Last Filed: 12/23/19 22:25> ROS Other: All systems not noted in ROS Statement are negative. <Johnathan Garcia - Last Filed: 12/24/19 07:03> ROS Statement: Those systems with pertinent positive or pertinent negative responses have been documented in the HPI. Past Medical History Past Medical History: Chest Pain / Angina, COPD, GERD/Reflux, Myocardial Infarction (SC), Osteoarthritis (OA), Supraventricular Tachycardia (SVT) Additional Past Medical History / Comment(s): HX SVT, BORN WITH BOTH KIDNEYS ON LT. SIDE, Last Myocardial Infarction Date:: 2006 History of Any Multi-Drug Resistant Organisms: None Reported Past Surgical History: Cardiac Ablation, Heart Catheterization, Heart Catheterization With Stent, Hernia Repair Additional Past Surgical History / Comment(s): JOSE INGUINAL HERNIA REPAIR, JOSE CARPAL TUNNEL release, Heart cath with stent to RCA 08/31/2018 Past Anesthesia/Blood Transfusion Reactions: No Reported Reaction Date of Last Stent Placement:: 08/31/2018 Past Psychological History: ADD/ADHD, Anxiety, Depression Smoking Status: Current every day smoker Past Alcohol Use History: Occasional Past Drug Use History: None Reported - Past Family History Father Family Medical History: Unable to Obtain Additional Family Medical History / Comment(s): PASSED WHEN PT WAS 7 YEARS OLD. WAS AN ALCOHOLIC Mother Family Medical History: Deep Vein Thrombosis (DVT), Hypertension Additional Family Medical History / Comment(s): DIVERTICULTIS, DEPRESSION <Jesus Husain - Last Filed: 12/22/19 23:09> General Exam Limitations: no limitations <Jesus Husain - Last Filed: 12/22/19 23:09> - General Exam Comments Initial Comments: Constitutional: NAD, AOX3, Pt has pleasant affect. HEENT: NC/AT, trachea midline, neck supple, no lymphadenopathy. External ears appear normal, without discharge. Mucous membranes moist. Eyes PERRLA, EOM intact. There is no scleral icterus. No pallor noted. Cardiopulmonary: RRR, no murmurs, rubs or gallops, no JVD noted. Lungs CTAB in anterior and posterior morfin. No peripheral edema. Abdominal exam: Abdomen soft and non-distended. Neuro: CN II-XII grossly intact. No nuchal rigidity. MSK: Full active ROM in upper and lower extremities (Jesus Husain) Course <Johnathan Garcia - Last Filed: 12/24/19 07:03> Vital Signs 12/22/19 12/23/19 12/23/19 19:43 04:38 08:00 Temperature 98.4 F 97.5 F L 98.3 F Pulse Rate 82 68 Respiratory 20 16 18 Rate Blood Pressure 121/80 116/72 140/90 O2 Sat by Pulse 99 98 99 Oximetry 12/23/19 12/23/19 12/23/19 09:00 10:00 11:00 Temperature Pulse Rate Respiratory 18 18 18 Rate Blood Pressure O2 Sat by Pulse Oximetry 12/23/19 12/23/19 12/23/19 12:00 13:00 14:00 Temperature Pulse Rate Respiratory 18 18 18 Rate Blood Pressure O2 Sat by Pulse Oximetry 12/23/19 12/23/19 12/23/19 15:00 16:00 17:00 Temperature 98.3 F Pulse Rate 84 Respiratory 18 18 18 Rate Blood Pressure 139/84 O2 Sat by Pulse 96 Oximetry 12/23/19 18:00 Temperature 98.3 F Pulse Rate 84 Respiratory 18 Rate Blood Pressure 139/84 O2 Sat by Pulse 96 Oximetry - Reevaluation(s) Reevaluation #1: 12/23/19 14:20 The patient rested comfortably throughout the day at this time will be signed out to Dr. Rice at our shift change (Johnathan Garcia) Reevaluation #2: 12/24/19 07:03 The patient was ultimately admitted (Johnathan Garcia) Medical Decision Making - Lab Data Result diagrams: 12/22/19 21:06 12/22/19 21:06 <Jesus Husain - Last Filed: 12/22/19 23:09> - Lab Data Result diagrams: 12/22/19 21:06 12/22/19 21:06 <Bhargav Kaufman - Last Filed: 12/23/19 22:25> - Lab Data Result diagrams: 12/22/19 21:06 12/22/19 21:06 <Johnathan Garcia - Last Filed: 12/24/19 07:03> - Medical Decision Making 54-year-old male patient presents to ED for evaluation of alcohol intoxication suicidal ideations. Denies any suicidal or homicidal ideations at this time. Denies any acute physical complaints. Pending EPS evaluation signed out to Dr. Sheriff. (Jesus Husain) Patient was sent out to me by previous shift physician Dr. Garcia. Briefly, patient is a 54-year-old male presents emergency department for EtOH intoxication and suicidal ideation. Patient is medically cleared. At this point we do not have any EPS recommendations at this time. Patient in stable medical condition. Patient signed out to Dr. Sheriff. (Bhargav Kaufman) - Lab Data Lab Results 12/22/19 12/22/19 12/23/19 Range/Units 21:06 21:06 04:37 WBC 5.1 (3.8-10.6) k/uL RBC 4.94 (4.30-5.90) m/uL Hgb 14.6 (13.0-17.5) gm/dL Hct 44.2 (39.0-53.0) % MCV 89.6 (80.0-100.0) fL MCH 29.5 (25.0-35.0) pg MCHC 33.0 (31.0-37.0) g/dL RDW 13.2 (11.5-15.5) % Plt Count 178 (150-450) k/uL Neutrophils % 62 % Lymphocytes % 28 % Monocytes % 6 % Eosinophils % 3 % Basophils % 1 % Neutrophils # 3.1 (1.3-7.7) k/uL Lymphocytes # 1.4 (1.0-4.8) k/uL Monocytes # 0.3 (0-1.0) k/uL Eosinophils # 0.1 (0-0.7) k/uL Basophils # 0.0 (0-0.2) k/uL Sodium 142 (137-145) mmol/L Potassium 4.2 (3.5-5.1) mmol/L Chloride 111 H (98-107) mmol/L Carbon Dioxide 23 (22-30) mmol/L Anion Gap 8 mmol/L BUN 13 (9-20) mg/dL Creatinine 1.12 (0.66-1.25) mg/dL Est GFR (CKD-EPI)AfAm 87 (>60 ml/min/1.73 sqM) Est GFR (CKD-EPI)NonAf 75 (>60 ml/min/1.73 sqM) Glucose 103 H (74-99) mg/dL Calcium 8.8 (8.4-10.2) mg/dL Total Bilirubin 0.5 (0.2-1.3) mg/dL AST 21 (17-59) U/L ALT 13 (4-49) U/L Alkaline Phosphatase 74 (38-126) U/L Total Protein 6.4 (6.3-8.2) g/dL Albumin 4.1 (3.5-5.0) g/dL Lipase 121 (23-300) U/L Urine Opiates Screen Not Detected (NotDetected) Ur Oxycodone Screen Not Detected (NotDetected) Urine Methadone Screen Not Detected (NotDetected) Ur Propoxyphene Screen Not Detected (NotDetected) Ur Barbiturates Screen Not Detected (NotDetected) U Tricyclic Antidepress Not Detected (NotDetected) Ur Phencyclidine Scrn Not Detected (NotDetected) Ur Amphetamines Screen Not Detected (NotDetected) U Methamphetamines Scrn Not Detected (NotDetected) U Benzodiazepines Scrn Detected H (NotDetected) Urine Cocaine Screen Not Detected (NotDetected) U Marijuana (THC) Screen Not Detected (NotDetected) Disposition <Jesus Husain - Last Filed: 12/22/19 23:09> <Bhargav Kaufman - Last Filed: 12/23/19 22:25> <Johnathan Garcia - Last Filed: 12/24/19 07:03> Clinical Impression: Depression, Suicidal ideation, Post traumatic stress disorder Disposition: TRANSFER TO PSYCH HOSP/UNIT Condition: Stable
[2019-12-22 21:18] LABS: Basophils % (A) 1 %; Eosinophils # (A) 0.1 k/uL (0-0.7); Eosinophils % (A) 3 %; HCT 44.2 % (39.0-53.0); HGB 14.6 gm/dL (13.0-17.5); Lymphocytes # (A) 1.4 k/uL (1.0-4.8); Lymphocytes % (A) 28 %; MCH 29.5 pg (25.0-35.0); MCV 89.6 fL (80.0-100.0); Mean Platelet Volume 9.2; Monocytes # (A) 0.3 k/uL (0-1.0); Monocytes % (A) 6 %; Neutrophils # (A) 3.1 k/uL (1.3-7.7); Neutrophils % (A) 62 %; Platelet Count 178 k/uL (150-450); RBC 4.94 m/uL (4.30-5.90); RDW 13.2 % (11.5-15.5); WBC 5.1 k/uL (3.8-10.6)
[2019-12-22 21:31] LABS: Albumin 4.1 g/dL (3.5-5.0); Calcium 8.8 mg/dL (8.4-10.2); Potassium 4.2 mmol/L (3.5-5.1); Total Bilirubin 0.5 mg/dL (0.2-1.3); Total Protein 6.4 g/dL (6.3-8.2)
[2019-12-23] MEDS: THIAMINE 100 MG TAB PO SCH ×2 (09:20→21:36)
[2019-12-23 09:47] LABS: Amphetamine Screen,Urine Not Detected (NotDetected); Barbiturate Screen,Urine Not Detected (NotDetected); Benzodiazepines Screen,Urine Detected (NotDetected); Cocaine Screen,Urine Not Detected (NotDetected); Methadone Screen, Urine Not Detected (NotDetected); Opiate Screen,Urine Not Detected (NotDetected); Oxycodone Screen, Urine Not Detected (NotDetected); Phencyclidine Screen,Urine Not Detected (NotDetected); Tricyclic Antidepressant,Urine Not Detected (NotDetected); Urn Cannabinoid Scrn Not Detected (NotDetected)
[2019-12-23] MEDS: LORazepam 2 MG/ML INJ IV PRN (22:31)
[2019-12-23] MEDS ORDERED: ALBUTEROL NEBULIZED 2.5 MG/3 ML INHALATION PRN (23:05)
[2019-12-23] MEDS ORDERED: NITROGLYCERIN SL TABS 0.4 MG TAB SUBLINGUAL PRN (23:05)
[2019-12-23] MEDS ORDERED: ALBUTEROL HFA INHALER INHALATION PRN (23:05)
[2019-12-23] MEDS ORDERED: ACETAMINOPHEN TAB 325 MG TAB PO PRN (23:53)
[2019-12-23] MEDS ORDERED: MAGNESIUM HYDROXIDE 2,400 MG/10 ML CUP PO PRN (23:53)
[2019-12-23] MEDS ORDERED: MAG HYDROX/AL HYDROX/SIMETH 30 ML CUP PO PRN (23:53)
[2019-12-23] MEDS ORDERED: ZIPRASIDONE 20 MG VIAL IM PRN (23:53)
[2019-12-23] MEDS ORDERED: DESVENLAFAXINE SUCCINATE 50 MG TAB.ER.24H PO STA (23:57)
[2019-12-23] MEDS ORDERED: LORazepam 2 MG/ML INJ IM PRN (23:57)
[2019-12-24 08:35] LABS: Basophils % (A) 1 %; Eosinophils # (A) 0.2 k/uL (0-0.7); Eosinophils % (A) 2 %; HCT 47.2 % (39.0-53.0); HGB 15.4 gm/dL (13.0-17.5); Lymphocytes # (A) 1.9 k/uL (1.0-4.8); Lymphocytes % (A) 26 %; MCH 29.5 pg (25.0-35.0); MCHC 32.7 g/dL (31.0-37.0); MCV 90.3 fL (80.0-100.0); Mean Platelet Volume 9.1; Monocytes # (A) 0.5 k/uL (0-1.0); Monocytes % (A) 7 %; Neutrophils # (A) 4.6 k/uL (1.3-7.7); Neutrophils % (A) 62 %; Platelet Count 183 k/uL (150-450); RBC 5.23 m/uL (4.30-5.90); RDW 13.1 % (11.5-15.5); WBC 7.4 k/uL (3.8-10.6)
[2019-12-24 08:48] LABS: ALT 14 U/L (4-49); AST 24 U/L (17-59); African American GFR (CKD) >90 (>60 ml/min/1.73 sqM); Albumin 3.9 g/dL (3.5-5.0); Alkaline Phosphatase 83 U/L (38-126); Anion Gap 6 mmol/L; Blood Urea Nitrogen 16 mg/dL (9-20); Calcium 9.3 mg/dL (8.4-10.2); Carbon Dioxide 26 mmol/L (22-30); Chloride 108 mmol/L (98-107); Cholesterol 172 mg/dL (<200); Glucose 91 mg/dL (74-99); HDL Cholesterol 56 mg/dL (40-60); LDL Cholesterol,Calculated 96 mg/dL (0-99); Non-African American GFR(CKD) 86 (>60 ml/min/1.73 sqM); Potassium 4.2 mmol/L (3.5-5.1); Sodium 140 mmol/L (137-145); Total Protein 6.3 g/dL (6.3-8.2); Triglycerides 98 mg/dL (<150)
[2019-12-24] MEDS: ASPIRIN 81 MG PO SCH (09:53)
[2019-12-24] MEDS: TAMSULOSIN 0.4 MG CAP.ER.24H PO SCH (09:54)
[2019-12-24] MEDS: NICOTINE 14MG/24HR PATCH TRANSDERM SCH ×2 (09:54→15:46)
[2019-12-24] MEDS: PREGABALIN 50 MG CAP PO SCH (09:54)
[2019-12-24] MEDS: PANTOPRAZOLE 40 MG TABLET PO SCH (09:54)
[2019-12-24] MEDS: FLUTICASONE 110 MCG INHALER (MHU) INHALATION SCH ×2 (09:55→21:26)
[2019-12-24] MEDS: CLOPIDOGREL 75 MG TAB PO SCH (09:55)
[2019-12-24] MEDS: DESVENLAFAXINE SUCCINATE 50 MG TAB.ER.24H PO SCH (09:55)
[2019-12-24] MEDS: IPRATROPIUM 0.5 MG/2.5 ML NEBU INHALATION SCH ×4 (10:40→20:03)
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
[2019-12-24] MEDS: NICOTINE 21MG/24HR PATCH TRANSDERM SCH (15:11)
[2019-12-24 18:15] LABS: Hemoglobin A1C 5.7 % (4.0-6.0)
[2019-12-24] MEDS: ATORVASTATIN 40 MG TAB PO SCH (21:27)
[2019-12-25 07:04] VITALS: RESP 16
[2019-12-25] MEDS: FLUTICASONE 110 MCG INHALER (MHU) INHALATION SCH ×2 (08:59→21:15)
[2019-12-25] MEDS: IPRATROPIUM 0.5 MG/2.5 ML NEBU INHALATION SCH ×4 (08:59→17:50)
[2019-12-25] MEDS: PANTOPRAZOLE 40 MG TABLET PO SCH (09:11)
[2019-12-25] MEDS: NICOTINE 21MG/24HR PATCH TRANSDERM SCH (09:11)
[2019-12-25] MEDS: DESVENLAFAXINE SUCCINATE 50 MG TAB.ER.24H PO SCH (09:12)
[2019-12-25] MEDS: TAMSULOSIN 0.4 MG CAP.ER.24H PO SCH (09:12)
[2019-12-25] MEDS: CLOPIDOGREL 75 MG TAB PO SCH (09:12)
[2019-12-25] MEDS: ASPIRIN 81 MG PO SCH (09:12)
[2019-12-25] MEDS: PREGABALIN 50 MG CAP PO SCH (09:12)
[2019-12-25] MEDS ORDERED: traZODone HCL 50 MG TAB PO PRN (13:10)
--- NOTE | 2019-12-25 13:24 | P.PN ---
Progress Note - Text Progress Note Date: 12/25/19 I did review medical records ,I discussed case in team meeting ,I did interview patient who came to office I reviewed medical consult: ((Assessment: -Major depression recurrent without psychotic features -Suicidal ideation -Alcohol use disorder with binge alcohol drinking -COPD in a current smoker -Chronic nicotine dependency smoker -Coronary artery disease with a stent to the RCA in August 2018 -GERD -Both the kidneys on the left side))) Slept 5-6 hours "I was very restless" Patient is participating in groups ,no behavior issue TODAY VITALS: Temp:98.1,P:76,R:16,BP:95/58 Interim history: Patient stated that his anxiety is high and he used to take xanax ,rates his anxiety 8/ ,excessive worries about loosing his job "I am the only income in family",reports that he did not sleep well last night ,reports nausea and upset stomach ,he denies any suicidal ideation,he was able to call [facility] this morning for intake,he stated that he has rash and he needs to see medical doctor for it Mental status exam: Patient is male dressed in street cloth,,fair grooming and hygiene cooperative ,no agitation ,able to sit through interview, ,was speech is spontaneous, coherent,stated mood "anxious"",affect is constricted,,denies any hallucination or delusional thinking ,denies any suicidal or homicidal ,,his insight to his addiction improving Clinical Problems:Major depression ,recurrent ,moderate without psychotic features ,anxiety disorder unspecified,r ,alcohol use disorder Plan: Continue inpatient. Continue Pristiq 50 mg ,add Buspar for anxiety ,Trazodone PRN for insomnia cattle alley worker to coordinate discharge and aftercare. Encourage participation in therapeutic groups and activities
[2019-12-25] MEDS: busPIRone HCl 5 MG TAB PO SCH (21:15)
[2019-12-25] MEDS: ATORVASTATIN 40 MG TAB PO SCH (21:15)
[2019-12-25] MEDS: LORazepam 1 MG TAB PO PRN (21:16)
[2019-12-26 07:39] VITALS: TEMP 98.1
[2019-12-26 08:52] VITALS: BP 112/84
[2019-12-26] MEDS: busPIRone HCl 5 MG TAB PO SCH (08:52)
[2019-12-26] MEDS: DESVENLAFAXINE SUCCINATE 50 MG TAB.ER.24H PO SCH (08:52)
[2019-12-26] MEDS: ASPIRIN 81 MG PO SCH (08:52)
[2019-12-26] MEDS: PANTOPRAZOLE 40 MG TABLET PO SCH (08:52)
[2019-12-26] MEDS: CLOPIDOGREL 75 MG TAB PO SCH (08:52)
[2019-12-26] MEDS: NICOTINE 21MG/24HR PATCH TRANSDERM SCH (08:52)
[2019-12-26] MEDS: TAMSULOSIN 0.4 MG CAP.ER.24H PO SCH (08:52)
[2019-12-26] MEDS: FLUTICASONE 110 MCG INHALER (MHU) INHALATION SCH (08:53)
[2019-12-26] MEDS: LORazepam 1 MG TAB PO PRN (08:54)
[2019-12-26] MEDS: PREGABALIN 50 MG CAP PO SCH (08:54)
[2019-12-26] MEDS: IPRATROPIUM 0.5 MG/2.5 ML NEBU INHALATION SCH ×2 (09:13→11:11)
[2019-12-26 09:24] VITALS: PULSE 64
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
== END 2019-12-26 12:50 | disposition home or self-care (01) | DRG 885 ==
LOC: EC 19:35 → 3MHU 12-23 22:21
PROVIDERS: ADMIT Psychiatry & Neurology Psychiatry; ATTEND Psychiatry & Neurology Psychiatry
DX: F33.9 Major depressive disorder, recurrent, unspecified (principal); F10.180 Alcohol abuse with alcohol-induced anxiety disorder; R45.851 Suicidal ideations; I47.1 Supraventricular tachycardia; J44.9 Chronic obstructive pulmonary disease, unspecified; I25.2 Old myocardial infarction; F10.129 Alcohol abuse with intoxication, unspecified; F17.210 Nicotine dependence, cigarettes, uncomplicated; F43.10 Post-traumatic stress disorder, unspecified; I25.10 Atherosclerotic heart disease of native coronary artery without angina pectoris; K21.9 Gastro-esophageal reflux disease without esophagitis; M19.90 Unspecified osteoarthritis, unspecified site; F90.9 Attention-deficit hyperactivity disorder, unspecified type; Z98.890 Other specified postprocedural states; Z62.810 Personal history of physical and sexual abuse in childhood; Z79.02 Long term (current) use of antithrombotics/antiplatelets; Z79.82 Long term (current) use of aspirin; Z79.899 Other long term (current) drug therapy; Z91.5 Personal history of self-harm; Z95.5 Presence of coronary angioplasty implant and graft; Z81.8 Family history of other mental and behavioral disorders; Z82.49 Family history of ischemic heart disease and other diseases of the circulatory system; Z87.19 Personal history of other diseases of the digestive system
CPT/HCPCS: 36415; 80053; 80061; 80306; 82075; 83036; 83690; 84443; 85025; 94640; 96372; 96374; 96376; 99285

== ENCOUNTER 2020-01-22 19:37 | Emergency (ER) | payer OTHER ==
[2020-01-22 19:50] VITALS: BP 128/85; PULSE 84; RESP 18; TEMP 98.1
[2020-01-22] MEDS ORDERED: KETOROLAC 15 MG/ML 1 ML VIAL IM STA (20:45)
--- NOTE | 2020-01-22 20:45 | ED ---
General Adult HPI - General Chief complaint: Extremity Injury, Lower Stated complaint: R Leg Injury Time Seen by Provider: 01/22/20 19:56 Source: patient Mode of arrival: wheelchair Limitations: no limitations - History of Present Illness Initial comments: 54-year-old male presents to the emergency department this evening with complaints of pain in his right thigh. Patient states he injured his thigh approximately 10 days ago when he took off on a sprint while he was was playing softball. Patient reports he had moderate swelling as well as extensinve bruising over the area at the time of injury and had an outpatient ultrasound done to rule out a blood clot; this was negative. Patient states today was his first day back at work and he experienced persistent pain throughout his 4 hours while on his feet and while ambulating; states he used an Oscar wrap his entire shift. Patient denies any recent rash, fever, chills, cough, shortness of breat h, chest pain, abdominal pain, nausea, vomiting, diarrhea, constipation, back pain, numbness, tingling, dizziness, weakness, hematuria, dysuria, urinary urgency, urinary frequency, headache, visual changes, or any other complaints. - Related Data Home Medications Medication Instructions Recorded Confirmed Pregabalin [Lyrica] 50 mg PO DAILY 01/27/16 12/23/19 Tamsulosin [Flomax] 0.4 mg PO DAILY 05/26/17 12/23/19 Albuterol Nebulized [Ventolin 2.5 mg INHALATION RT-QID PRN 02/18/18 12/23/19 Nebulized] Albuterol Inhaler [Ventolin Hfa 2 puff INHALATION RT-QID PRN 12/23/19 12/23/19 Inhaler] Beclomethasone Dipropionate [Qvar 2 puff INHALATION RT-BID 12/23/19 12/23/19 80mcg Redihaler] Ipratropium [place] [Atrovent Hfa] 2 puff INHALATION RT-QID 12/23/19 12/23/19 Omeprazole Magnesium 20 mg PO DAILY 12/23/19 12/23/19 Previous Rx's Medication Instructions Recorded Nitroglycerin Sl Tabs [Nitrostat] 0.4 mg SUBLINGUAL Q5M PRN #20 tab 07/13/18 Aspirin 81 mg PO DAILY chew 09/01/18 Atorvastatin [Lipitor] 40 mg PO HS #90 tab 09/01/18 Clopidogrel [Plavix] 75 mg PO DAILY #90 tab 09/01/18 Desvenlafaxine Succinate [Pristiq] 50 mg PO DAILY 14 Days tab 12/26/19 busPIRone HCl [Buspar] 5 mg PO BID 14 Days tab 12/26/19 traZODone HCL [Desyrel] 50 mg PO HS PRN 14 Days tab 12/26/19 Allergies Allergy/AdvReac Type Severity Reaction Status Date / Time No Known Allergies Allergy Verified 01/22/20 19:50 Review of Systems ROS Statement: Those systems with pertinent positive or pertinent negative responses have been documented in the HPI. ROS Other: All systems not noted in ROS Statement are negative. Past Medical History Past Medical History: Chest Pain / Angina, COPD, GERD/Reflux, Myocardial Infarction ([place]), Osteoarthritis (OA), Supraventricular Tachycardia (SVT) Additional Past Medical History / Comment(s): HX SVT, BORN WITH BOTH KIDNEYS ON LT. SIDE, Last Myocardial Infarction Date:: 2006 History of Any Multi-Drug Resistant Organisms: None Reported Past Surgical History: Cardiac Ablation, Heart Catheterization, Heart Catheterization With Stent, Hernia Repair Additional Past Surgical History / Comment(s): JOSE INGUINAL HERNIA REPAIR, JOSE CARPAL TUNNEL release, Heart cath with stent to RCA 08/31/2018 Past Anesthesia/Blood Transfusion Reactions: No Reported Reaction Date of Last Stent Placement:: 08/31/2018 Past Psychological History: ADD/ADHD, Anxiety, Depression Smoking Status: Current every day smoker Past Alcohol Use History: None Reported, Abuse Past Drug Use History: None Reported - Past Family History Father Family Medical History: Unable to Obtain Additional Family Medical History / Comment(s): PASSED WHEN PT WAS 7 YEARS OLD. WAS AN ALCOHOLIC Mother Family Medical History: Deep Vein Thrombosis (DVT), Hypertension Additional Family Medical History / Comment(s): DIVERTICULTIS, DEPRESSION General Exam Limitations: no limitations General appearance: alert, in no apparent distress, other (Physical well- developed, well-nourished adult male patient in no acute distress. Vital signs upon presentation are temperature 98.1F, pulse 84, respirations 18, blood pressure 128/85, pulse ox 97% on room air.) Respiratory exam: Present: normal lung sounds bilaterally. Absent: respiratory distress, wheezes, rales, rhonchi, stridor Cardiovascular Exam: Present: regular rate, normal rhythm, normal heart sounds. Absent: systolic murmur, diastolic murmur, rubs, gallop, clicks Extremities exam: Present: full ROM, tenderness (Right anterior thigh), normal capillary refill, other (There is a soft tissue mass noted to palpation over the right anterior thigh. There is mild ecchymosis noted extending from the right anterior thigh down over the anterior hirsch and around the ankle, this is faint. Skin is otherwise pink, warm, dry. Cap refills less than 3 seconds. Pedal and post). Absent: normal inspection, pedal edema, joint swelling, calf tenderness Neurological exam: Present: alert, oriented X3, CN II-XII intact Psychiatric exam: Present: normal affect, normal mood Skin exam: Present: warm, dry, intact, normal color. Absent: rash Course Vital Signs 01/22/20 19:47 Temperature 98.1 F Pulse Rate 84 Respiratory 18 Rate Blood Pressure 128/85 O2 Sat by Pulse 97 Oximetry Medical Decision Making - Medical Decision Making 54-year-old male patient presents to the emergency department today for evaluation of right thigh pain and swelling. Physical examination did reveal soft tissue mass over the anterior right thigh, there was evidence for ecchymosis which appeared faint extending down the leg to the ankle. Neurovascular status was intact. Ultrasound was obtained and showed evidence for intramuscular hematoma to the area, this is consistent with his history and presentation. He'll be discharged to follow-up with orthopedics for further evaluation and monitoring of the area. Is instructed to apply ice and to use Oscar wrap as needed. Return parameters were discussed in detail. He verbalizes understanding and agrees with this plan. - Radiology Data Radiology results: report reviewed Ultrasound of the right thigh was obtained. Report was reviewed in its entirety. Impression by Dr. Dhaliwal shows intramuscular hematoma is most likely within the differential. Disposition Clinical Impression: Intramuscular hematoma, Right thigh pain Disposition: HOME SELF-CARE Condition: Good Instructions (If sedation given, give patient instructions): Hematoma (ED) Additional Instructions: Apply ice to the right anterior thigh. Follow-up with oil and gas specialist for further evaluation. Return to the emergency department immediately for any new, worsening, or concerning symptoms. Is patient prescribed a controlled substance at d/c from ED?: No Referrals: Epi Boyd DO [Primary Care Provider] - 1-2 days Time of Disposition: :57
--- NOTE | 2020-01-22 21:39 | US ---
EXAMINATION TYPE: US extremity nonvasc mass RT DATE OF EXAM: 01/22/2020 COMPARISON: NONE CLINICAL HISTORY: Right thigh pain/mass/swelling. Right thigh pain/mass/swelling after softball injur y while running on 01/11/20. Scanned anterior right thigh at patient's area of pain. There appears to be a heterogeneous area of m ixed echogenicity with hypoechoic border measuring approximately: 6.6 x 1.6 x 1.3 cm. There is some v ascularity. Scanned from upper thigh to lower thigh. Within the upper portion of this measured area, there appears to be a smaller anechoic area measuring : 0.4 x 0.6 x 0.4 cm. IMPRESSION: 1. Intramuscular hematoma is most likely within the differential. Follow-up can be performed
== END 2020-01-22 22:16 | disposition home or self-care (01) ==
LOC: EC 19:37
DX: S70.11XA Contusion of right thigh, initial encounter (principal); J44.9 Chronic obstructive pulmonary disease, unspecified; F41.9 Anxiety disorder, unspecified; K21.9 Gastro-esophageal reflux disease without esophagitis; I25.2 Old myocardial infarction; F17.200 Nicotine dependence, unspecified, uncomplicated; Z79.51 Long term (current) use of inhaled steroids; Z79.899 Other long term (current) drug therapy; Y93.64 Activity, baseball
CPT/HCPCS: 76882; 99283; 96372; J1885

== ENCOUNTER → 2020-08-06 | Outpatient (CLI) | payer OTHER | END | disposition home or self-care (01) | LOC: LABWHC1 16:41 | PROVIDERS: ATTEND Nurse Practitioner Family | DX: Z20.822 Contact with and (suspected) exposure to COVID-19 (principal) | CPT/HCPCS: U0003; C9803; U0005 ==

== ENCOUNTER 2020-09-27 20:14 | Emergency (ER) | payer OTHER ==
[2020-09-27 20:24] VITALS: RESP 18; TEMP 98.1
[2020-09-27] MEDS ORDERED: SODIUM CHLORIDE 0.9% 1,000 ML IV STA (20:34)
[2020-09-27] MEDS ORDERED: ONDANSETRON 4 MG/2 ML VIAL IVP STA (20:34)
[2020-09-27] MEDS ORDERED: MECLIZINE 12.5 MG TAB PO STA (20:35)
[2020-09-27 21:21] LABS: Basophils # (A) 0.1 k/uL (0-0.2); Basophils % (A) 1 %; Eosinophils # (A) 0.1 k/uL (0-0.7); Eosinophils % (A) 1 %; HCT 43.5 % (39.0-53.0); HGB 15.1 gm/dL (13.0-17.5); Lymphocytes # (A) 1.4 k/uL (1.0-4.8); Lymphocytes % (A) 10 %; MCH 30.2 pg (25.0-35.0); MCHC 34.7 g/dL (31.0-37.0); Mean Platelet Volume 8.9; Monocytes # (A) 1.1 k/uL (0-1.0); Monocytes % (A) 8 %; Neutrophils # (A) 11.1 k/uL (1.3-7.7); Neutrophils % (A) 80 %; Platelet Count 188 k/uL (150-450); RDW 12.5 % (11.5-15.5); WBC 13.8 k/uL (3.8-10.6)
--- NOTE | 2020-09-27 21:22 | ED ---
General Adult HPI - General Chief complaint: Nausea/Vomiting/Diarrhea Stated complaint: Vomiting,Dizziness Time Seen by Provider: 09/27/20 20:27 Source: patient, RN notes reviewed Mode of arrival: wheelchair Limitations: no limitations - History of Present Illness Initial comments: 55-year-old male with a past medical history of chest pain, COPD, GERD, [place], SVT presents to the emergency room for a chief complaint of nausea. Patient reports that he was working on a floor with his head down when he started to feel very shaky. States he became nauseous and started vomiting. Patient does admit that the room was spinning. patient states the room is no longer spinning but he still feels nauseous and shaky. Patient states he had this once before a few years ago while also working on a floor. States he sometimes get these symptoms when he puts his head down and then stands up. Patient moving his head a certain way it will elicit the dizziness again such as to the side or up and down. Patient has no other complaints at this time including shortness of breath, chest pain, abdominal pain, headache, or visual changes. - Related Data Home Medications Medication Instructions Recorded Confirmed Pregabalin [Lyrica] 50 mg PO DAILY 01/27/16 12/23/19 Tamsulosin [Flomax] 0.4 mg PO DAILY 05/26/17 12/23/19 Albuterol Nebulized [Ventolin 2.5 mg INHALATION RT-QID PRN 02/18/18 12/23/19 Nebulized] Albuterol Inhaler [Ventolin Hfa 2 puff INHALATION RT-QID PRN 12/23/19 12/23/19 Inhaler] Beclomethasone Dipropionate [Qvar 2 puff INHALATION RT-BID 12/23/19 12/23/19 80mcg Redihaler] Ipratropium [place] [Atrovent Hfa] 2 puff INHALATION RT-QID 12/23/19 12/23/19 Omeprazole Magnesium [PriLOSEC] 20 mg PO DAILY 12/23/19 12/23/19 Previous Rx's Medication Instructions Recorded Nitroglycerin Sl Tabs [Nitrostat] 0.4 mg SUBLINGUAL Q5M PRN #20 tab 07/13/18 Aspirin 81 mg PO DAILY chew 09/01/18 Atorvastatin [Lipitor] 40 mg PO HS #90 tab 09/01/18 Clopidogrel [Plavix] 75 mg PO DAILY #90 tab 09/01/18 Desvenlafaxine Succinate [Pristiq] 50 mg PO DAILY 14 Days tab 12/26/19 busPIRone HCl [Buspar] 5 mg PO BID 14 Days tab 12/26/19 traZODone HCL [Desyrel] 50 mg PO HS PRN 14 Days tab 12/26/19 Meclizine [Antivert] 25 mg PO TID #20 tab 09/27/20 Allergies Allergy/AdvReac Type Severity Reaction Status Date / Time No Known Allergies Allergy Verified 09/27/20 20:25 Review of Systems ROS Statement: Those systems with pertinent positive or pertinent negative responses have been documented in the HPI. ROS Other: All systems not noted in ROS Statement are negative. Past Medical History Past Medical History: Chest Pain / Angina, COPD, GERD/Reflux, Myocardial Infarction ([place]), Osteoarthritis (OA), Supraventricular Tachycardia (SVT) Additional Past Medical History / Comment(s): HX SVT, BORN WITH BOTH KIDNEYS ON LT. SIDE, Last Myocardial Infarction Date:: 2006 History of Any Multi-Drug Resistant Organisms: None Reported Past Surgical History: Cardiac Ablation, Heart Catheterization, Heart Catheterization With Stent, Hernia Repair Additional Past Surgical History / Comment(s): JOSE INGUINAL HERNIA REPAIR, JOSE CARPAL TUNNEL release, Heart cath with stent to RCA 08/31/2018 Past Anesthesia/Blood Transfusion Reactions: No Reported Reaction Date of Last Stent Placement:: 08/31/2018 Past Psychological History: ADD/ADHD, Anxiety, Depression Smoking Status: Current every day smoker Past Alcohol Use History: None Reported, Abuse Past Drug Use History: None Reported - Past Family History Father Family Medical History: Unable to Obtain Additional Family Medical History / Comment(s): PASSED WHEN PT WAS 7 YEARS OLD. WAS AN ALCOHOLIC Mother Family Medical History: Deep Vein Thrombosis (DVT), Hypertension Additional Family Medical History / Comment(s): DIVERTICULTIS, DEPRESSION General Exam Limitations: no limitations General appearance: alert, in no apparent distress Head exam: Present: atraumatic, normocephalic, normal inspection Eye exam: Present: normal appearance, PERRL, EOMI. Absent: scleral icterus, conjunctival injection, periorbital swelling ENT exam: Present: normal exam, mucous membranes moist Neck exam: Present: normal inspection, full ROM. Absent: tenderness, meningismus, lymphadenopathy Respiratory exam: Present: normal lung sounds bilaterally. Absent: respiratory distress, wheezes, rales, rhonchi, stridor Cardiovascular Exam: Present: regular rate, normal rhythm, normal heart sounds. Absent: systolic murmur, diastolic murmur, rubs, gallop, clicks GI/Abdominal exam: Present: soft, normal bowel sounds. Absent: distended, ten derness, guarding, rebound, rigid Neurological exam: Present: alert, oriented X3, normal gait Course Vital Signs 09/27/20 09/27/20 20:17 21:22 Temperature 98.1 F Pulse Rate 70 62 Respiratory 18 18 Rate Blood Pressure 126/78 120/85 O2 Sat by Pulse 100 97 Oximetry Medical Decision Making - Medical Decision Making Vitals are stable. Pt presents for dizziness which he has had before reproduced by similar situations. CBC CMP unremarkable. EKG nonischemic. Troponin is negative. CT brain shows a negative unenhanced head CT. Chest x-ray shows a normal chest. No change. Patient was given fluids, Zofran, and Antivert which helped significantly with his symptoms. He is resting comfortably. Normal Gait. CT angios head and neck was negative. Bilateral arterial flow in the vertebral arteries. Arterial flow in the vertebrobasilar artery system. Patient again reevaluated, feeling much better. Can be discharged home. Symptoms likely vertiginous. Will return here for any worsening symptoms. - Lab Data Result diagrams: 09/27/20 21:04 09/27/20 21:04 Lab Results 09/27/20 09/27/20 09/27/20 Range/Units 21:04 21:04 21:04 WBC 13.8 H (3.8-10.6) k/uL RBC 5.00 (4.30-5.90) m/uL Hgb 15.1 (13.0-17.5) gm/dL Hct 43.5 (39.0-53.0) % MCV 87.0 (80.0-100.0) fL MCH 30.2 (25.0-35.0) pg MCHC 34.7 (31.0-37.0) g/dL RDW 12.5 (11.5-15.5) % Plt Count 188 (150-450) k/uL MPV 8.9 Neutrophils % 80 % Lymphocytes % 10 % Monocytes % 8 % Eosinophils % 1 % Basophils % 1 % Neutrophils # 11.1 H (1.3-7.7) k/uL Lymphocytes # 1.4 (1.0-4.8) k/uL Monocytes # 1.1 H (0-1.0) k/uL Eosinophils # 0.1 (0-0.7) k/uL Basophils # 0.1 (0-0.2) k/uL Sodium 140 (137-145) mmol/L Potassium 3.7 (3.5-5.1) mmol/L Chloride 105 (98-107) mmol/L Carbon Dioxide 24 (22-30) mmol/L Anion Gap 11 mmol/L BUN 12 (9-20) mg/dL Creatinine 1.10 (0.66-1.25) mg/dL Est GFR (CKD-EPI)AfAm 88 (>60 ml/min/1.73 sqM) Est GFR (CKD-EPI)NonAf 76 (>60 ml/min/1.73 sqM) Glucose 90 (74-99) mg/dL Calcium 10.2 (8.4-10.2) mg/dL Magnesium 1.6 (1.6-2.3) mg/dL Total Bilirubin 0.6 (0.2-1.3) mg/dL AST 23 (17-59) U/L ALT 12 (4-49) U/L Alkaline Phosphatase 86 (38-126) U/L Troponin I <0.012 (0.000-0.034) ng/mL Total Protein 6.7 (6.3-8.2) g/dL Albumin 4.5 (3.5-5.0) g/dL Lipase 109 (23-300) U/L Disposition Clinical Impression: Dizziness, Vertigo Disposition: HOME SELF-CARE Condition: Good Additional Instructions: Please follow-up with your doctor in one to 2 days. Take meclizine as needed. Return to the emergency room for worsening symptoms. Prescriptions: Meclizine [Antivert] 25 mg PO TID #20 tab Is patient prescribed a controlled substance at d/c from ED?: No Referrals: Epi Boyd DO [Primary Care Provider] - 1-2 days Time of Disposition: 23:14
[2020-09-27 21:41] LABS: Albumin 4.5 g/dL (3.5-5.0); Calcium 10.2 mg/dL (8.4-10.2); Magnesium 1.6 mg/dL (1.6-2.3); Potassium 3.7 mmol/L (3.5-5.1); Total Bilirubin 0.6 mg/dL (0.2-1.3); Total Protein 6.7 g/dL (6.3-8.2)
--- NOTE | 2020-09-27 21:46 | CT ---
EXAMINATION TYPE: CT brain wo con DATE OF EXAM: 09/27/2020 COMPARISON: None HISTORY: Near syncope and dizziness. CT DLP: 1099.4 mGycm Automated exposure control for dose reduction was used. Ventricles have normal size. There is no mass effect nor midline shift. There is no sign of intracran ial hemorrhage. Calvarium is intact. There is no evidence of cerebral edema. Skull base is intact. IMPRESSION: Negative unenhanced head CT scan.
--- NOTE | 2020-09-27 21:52 | XR ---
EXAMINATION TYPE: XR chest 2V DATE OF EXAM: 09/27/2020 COMPARISON: 11/29/2019 HISTORY: Dizziness TECHNIQUE: 2 views FINDINGS: Heart and mediastinum are normal. Lungs are clear. Diaphragm is normal. Bony thorax appears intact. The pulmonary vascularity is normal. IMPRESSION: Normal chest. No change.
--- NOTE | 2020-09-27 23:20 | CT ---
EXAMINATION TYPE: CT angio head neck DATE OF EXAM: 09/27/2020 COMPARISON: None HISTORY: dizziness CT DLP: 462.8 mGycm Automated exposure control for dose reduction was used. CONTRAST: Performed with IV Contrast, patient injected with 65 mL of Isovue 370. Images obtained from the aortic arch to the vertex of the brain with IV contrast. There are 3-D post processed images. There is no mediastinal adenopathy. There is normal branching pattern of the great vessels on the aor tic arch. There is bilateral arterial flow in the subclavian arteries. There is arterial flow in the common internal and external carotid arteries bilaterally. There is wide patency of the carotid arter y bifurcations. There is no evidence of carotid or vertebral artery aneurysm or dissection. There is bilateral arterial flow in the vertebral arteries. Left vertebral artery is larger than the right. Th ere is arterial flow in the vertebrobasilar artery system. There is arterial flow in the anterior middle and posterior cerebral arteries. There is no mass effec t. I see no evidence of intracranial aneurysm or neovascularity. There is normal enhancement of the v enous sinuses. I see no evidence of intracranial arterial stenosis. There is mucus retention cyst right maxillary sinus. IMPRESSION: Negative CT angiogram of the neck. Negative CT angiogram of the brain.
[2020-09-27 23:53] VITALS: BP 119/68; PULSE 74
== END 2020-09-27 23:59 | disposition home or self-care (01) ==
LOC: EC 20:14
DX: R42 Dizziness and giddiness (principal); J44.9 Chronic obstructive pulmonary disease, unspecified; I25.2 Old myocardial infarction; M19.90 Unspecified osteoarthritis, unspecified site; F32.9 Major depressive disorder, single episode, unspecified; F17.200 Nicotine dependence, unspecified, uncomplicated; Z95.5 Presence of coronary angioplasty implant and graft
CPT/HCPCS: 36415; 80053; 83690; 83735; 84484; 85025; 71046; 70496; 70450; 70498; 99284; 96374; 96361 ×3; J2405; Q9967; 93005

== ENCOUNTER 2021-03-10 19:38 | Emergency (ER) | payer OTHER ==
--- NOTE | 2021-03-10 21:43 | ED ---
General Adult HPI - General Chief complaint: Upper Respiratory Infection Stated complaint: body achs, congestion Time Seen by Provider: 03/10/21 21:29 Source: patient, RN notes reviewed, old records reviewed Mode of arrival: ambulatory Limitations: no limitations - History of Present Illness Initial comments: 55-year-old male history of COPD presenting with nasal congestion, productive cough for the past 9 days. Patient is vaccinated against coronavirus. He's had some mild dyspnea and chest tightness. No central radiating chest pain. No lower extremity pain or swelling. No measured fever. No vomiting or diarrhea. Patient is a current smoker. - Related Data Home Medications Medication Instructions Recorded Confirmed Pregabalin [Lyrica] 50 mg PO DAILY 01/27/16 12/23/19 Tamsulosin [Flomax] 0.4 mg PO DAILY 05/26/17 12/23/19 Albuterol Nebulized [Ventolin 2.5 mg INHALATION RT-QID PRN 02/18/18 12/23/19 Nebulized] Albuterol Inhaler [Ventolin Hfa 2 puff INHALATION RT-QID PRN 12/23/19 12/23/19 Inhaler] Beclomethasone Dipropionate [Qvar 2 puff INHALATION RT-BID 12/23/19 12/23/19 80mcg Redihaler] Ipratropium [place] [Atrovent Hfa] 2 puff INHALATION RT-QID 12/23/19 12/23/19 Omeprazole Magnesium [PriLOSEC] 20 mg PO DAILY 12/23/19 12/23/19 Previous Rx's Medication Instructions Recorded Nitroglycerin Sl Tabs [Nitrostat] 0.4 mg SUBLINGUAL Q5M PRN #20 tab 07/13/18 Aspirin 81 mg PO DAILY chew 09/01/18 Atorvastatin [Lipitor] 40 mg PO HS #90 tab 09/01/18 Clopidogrel [Plavix] 75 mg PO DAILY #90 tab 09/01/18 Desvenlafaxine Succinate [Pristiq] 50 mg PO DAILY 14 Days tab 12/26/19 busPIRone HCl [Buspar] 5 mg PO BID 14 Days tab 12/26/19 traZODone HCL [Desyrel] 50 mg PO HS PRN 14 Days tab 12/26/19 Meclizine [Antivert] 25 mg PO TID #20 tab 09/27/20 Azithromycin [Zithromax [place] (3 500 mg PO DAILY 3 Days #3 tab 03/10/21 tabs)] predniSONE 50 mg PO DAILY #5 tab 03/10/21 Allergies Allergy/AdvReac Type Severity Reaction Status Date / Time No Known Allergies Allergy Verified 03/10/21 21:20 Review of Systems ROS Statement: Those systems with pertinent positive or pertinent negative responses have been documented in the HPI. ROS Other: All systems not noted in ROS Statement are negative. Past Medical History Past Medical History: Chest Pain / Angina, COPD, GERD/Reflux, Myocardial Infarction ([place]), Osteoarthritis (OA), Supraventricular Tachycardia (SVT) Additional Past Medical History / Comment(s): HX SVT, BORN WITH BOTH KIDNEYS ON LT. SIDE, Last Myocardial Infarction Date:: 2006 History of Any Multi-Drug Resistant Organisms: None Reported Past Surgical History: Cardiac Ablation, Heart Catheterization, Heart Catheterization With Stent, Hernia Repair, Orthopedic Surgery Additional Past Surgical History / Comment(s): JOSE INGUINAL HERNIA REPAIR, JOSE CARPAL TUNNEL release, Heart cath with stent to RCA 08/31/2018 Past Anesthesia/Blood Transfusion Reactions: No Reported Reaction Date of Last Stent Placement:: 08/31/2018 Past Psychological History: ADD/ADHD, Anxiety, Depression Smoking Status: Current every day smoker Past Alcohol Use History: None Reported, Abuse Past Drug Use History: None Reported - Past Family History Father Family Medical History: Unable to Obtain Additional Family Medical History / Comment(s): PASSED WHEN PT WAS 7 YEARS OLD. WAS AN ALCOHOLIC Mother Family Medical History: Deep Vein Thrombosis (DVT), Hypertension Additional Family Medical History / Comment(s): DIVERTICULTIS, DEPRESSION General Exam Limitations: no limitations General appearance: alert, in no apparent distress Head exam: Present: atraumatic, normocephalic Eye exam: Present: normal appearance, PERRL ENT exam: Present: normal exam Neck exam: Present: normal inspection. Absent: tenderness, meningismus Respiratory exam: Present: rhonchi (Scattered rhonchi). Absent: respiratory distress, wheezes, rales Cardiovascular Exam: Present: regular rate, normal rhythm GI/Abdominal exam: Present: soft. Absent: distended, tenderness, guarding, rebound Extremities exam: Present: normal inspection, normal capillary refill. Absent: pedal edema Neurological exam: Present: alert, oriented X3, CN II-XII intact. Absent: motor sensory deficit Psychiatric exam: Present: normal affect, normal mood Skin exam: Present: warm, dry, intact. Absent: cyanosis, diaphoretic Course Vital Signs 03/10/21 03/10/21 21:20 21:32 Temperature 98.3 F Pulse Rate 89 Respiratory 20 22 Rate Blood Pressure 134/92 O2 Sat by Pulse 97 Oximetry Medical Decision Making - Medical Decision Making 55 yo male who had presented for evaluation of nasal congestion, increased cough and dyspnea. History of COPD. Patient well-appearing with stable vitals. Chest x-ray is clear. Coronavirus testing is positive. Patient is not hypoxic. He has had symptoms for approximately 9 days, he agrees to antibody effusion within the emergency department. Orders are discussed. Disposition Clinical Impression: COPD (chronic obstructive pulmonary disease), COVID-19 Disposition: HOME SELF-CARE Condition: Good Instructions (If sedation given, give patient instructions): COPD (Chronic Obstructive Pulmonary Disease) (ED), Coronavirus Disease 2019 (COVID-19) Prescriptions: predniSONE 50 mg PO DAILY #5 tab Azithromycin [Zithromax Tri-[place] (3 tabs)] 500 mg PO DAILY 3 Days #3 tab Is patient prescribed a controlled substance at d/c from ED?: No Referrals: Epi Boyd DO [Primary Care Provider] - 1-2 days Time of Disposition: 22:46
--- NOTE | 2021-03-10 22:21 | XR ---
EXAMINATION TYPE: XR chest 2V DATE OF EXAM: 03/10/2021 COMPARISON: 09/27/2020 HISTORY: Cough TECHNIQUE: 2 views FINDINGS: Heart and mediastinum are normal. Lungs are clear. Diaphragm is normal. Bony thorax is inta ct. IMPRESSION: Normal chest. No change.
[2021-03-10] MEDS ORDERED: predniSONE 50 MG TAB PO STA (22:49)
[2021-03-10] MEDS ORDERED: AZITHROMYCIN 500 MG in SODIUM CHLORIDE 0.9% 250 ML IVPB ONE (23:00)
[2021-03-10] MEDS ORDERED: AZITHROMYCIN 500 MG TAB PO STA (23:02)
[2021-03-11] MEDS ORDERED: CASIRIVIMAB/IMDEVIMAB (EUA) 1,200 MG in SODIUM CHLORIDE 0.9% 100 ML IVPB ONE (00:30)
[2021-03-11] MEDS ORDERED: SODIUM CHLORIDE 0.9% 50 ML IVPB ONE (00:30)
[2021-03-11 02:19] VITALS: BP 122/90; PULSE 85; RESP 20; TEMP 98.2
== END 2021-03-11 02:20 | disposition home or self-care (01) ==
LOC: EC 19:38
DX: U07.1 COVID-19 (principal); J44.9 Chronic obstructive pulmonary disease, unspecified; K21.9 Gastro-esophageal reflux disease without esophagitis; I25.2 Old myocardial infarction; M19.90 Unspecified osteoarthritis, unspecified site; F41.9 Anxiety disorder, unspecified; F32.9 Major depressive disorder, single episode, unspecified; F90.9 Attention-deficit hyperactivity disorder, unspecified type; F17.200 Nicotine dependence, unspecified, uncomplicated; Z79.82 Long term (current) use of aspirin; Z79.02 Long term (current) use of antithrombotics/antiplatelets; Z95.5 Presence of coronary angioplasty implant and graft
CPT/HCPCS: 99285 ×2; 96365; 87635; 71046; M0243; J7512; Q0243

== ENCOUNTER 2021-12-31 09:52 | Day surgery (SDC) | payer OTHER ==
[2021-12-30 10:41] VITALS: BMI 24.3
--- NOTE | 2021-12-31 06:53 | P.GSHP ---
History of Present Illness H&P Date: 12/31/21 CHIEF COMPLAINT: Inguinal hernia, bilateral HISTORY OF PRESENT ILLNESS: The patient is a 56-year-old male who presents with a history of swelling and pain along the groins. He's noted increased swelling including pain of the area for over 2 months. He has had prior repair. Now he presents for repair of his inguinal hernias. PAST MEDICAL HISTORY: Please see list. PAST SURGICAL HISTORY: Please see list. MEDICATIONS: Please see list. ALLERGIES: Please see list. SOCIAL HISTORY: No illicit drug use FAMILY HISTORY: No reports of Crohn disease or ulcerative colitis. REVIEW OF ORGAN SYSTEMS: CONSTITUTIONAL: No reports of fevers or chills. No reports of weight loss despite prior attempts. GI: Denies any blood in stools or constipation. PHYSICAL EXAM: VITAL SIGNS: Stable GENERAL: Well-developed pleasant male in no acute distress. HEENT: No scleral icterus. Extraocular movements grossly intact. Moist buccal mucosa. NECK: Supple without lymphadenopathy. CHEST: Unlabored respirations. Equal bilateral excursions. CARDIOVASCULAR: Regular rate and rhythm. Distal 2+ pulses. ABDOMEN: Soft, nondistended. No peritoneal signs. Palpable defect of the groin MUSCULOSKELETAL: No clubbing, cyanosis, or edema. ASSESSMENT: 1. Inguinal hernia, bilateral PLAN: 1. Recommend proceeding with a robotic inguinal repair with mesh with bilateral approach. 2. Benefits and risks of surgical intervention was discussed including possibility of open technique. 3. DVT prophylaxis. 4. Antibiotic prophylaxis. 5. Strict tobacco cessation, nutritional assessment was performed for counseling prior to surgery. 6. He is elevated risk for complications for pre-existing cardiac disease. Cardiac risk assessment obtained. Past Medical History Past Medical History: Chest Pain / Angina, COPD, GERD/Reflux, Hearing Disorder / Deafness, Myocardial Infarction ([place]), Osteoarthritis (OA), Supraventricular Tachycardia (SVT) Additional Past Medical History / Comment(s): HX SVT, BORN WITH BOTH KIDNEYS ON LEFT SIDE, slight hearing loss in left ear. Last Myocardial Infarction Date:: 2006 History of Any Multi-Drug Resistant Organisms: None Reported Past Surgical History: Cardiac Ablation, Heart Catheterization, Heart Catheterization With Stent, Hernia Repair, Orthopedic Surgery Additional Past Surgical History / Comment(s): BILATERAL INGUINAL HERNIA REPAIR, BILATERAL CARPAL TUNNEL release, right knee surgery. Past Anesthesia/Blood Transfusion Reactions: No Reported Reaction Date of Last Stent Placement:: 08/31/2018 Past Psychological History: ADD/ADHD, Anxiety, Depression Additional Psychological History / Comment(s): ADD. Smoking Status: Current every day smoker Past Alcohol Use History: None Reported, Abuse Additional Past Alcohol Use History / Comment(s): STARTED SMOKING AT AGE 14(1979), SMOKES 1 PPD. "Alcohol free for 2 yrs." Past Drug Use History: None Reported Additional Drug Use History / Comment(s): TEENAGER, NONE SINCE. - Past Family History Father Family Medical History: Unable to Obtain Additional Family Medical History / Comment(s): PASSED WHEN PT WAS 7 YEARS OLD. WAS AN ALCOHOLIC. Mother Family Medical History: Deep Vein Thrombosis (DVT), Hypertension Additional Family Medical History / Comment(s): DIVERTICULTIS, DEPRESSION. Medications and Allergies Home Medications Medication Instructions Recorded Confirmed Type Pregabalin [Lyrica] 50 mg PO 1330 01/27/16 12/30/21 History Albuterol Nebulized [Ventolin 2.5 mg INHALATION QID 02/18/18 12/30/21 History Nebulized] Nitroglycerin Sl Tabs [Nitrostat] 0.4 mg SUBLINGUAL Q5M PRN #20 tab 07/13/18 12/30/21 Rx Aspirin 81 mg PO DAILY chew 09/01/18 12/30/21 Rx Albuterol Inhaler [Ventolin Hfa 2 puff INHALATION QID 12/23/19 12/30/21 History Inhaler] Ipratropium [place] [Atrovent Hfa] 2 puff INHALATION QID 12/23/19 12/30/21 History busPIRone HCl [Buspar] 5 mg PO BID 14 Days tab 12/26/19 12/30/21 Rx Desvenlafaxine Succinate [Pristiq] 50 mg PO 1330 12/30/21 12/30/21 History Famotidine 40 mg PO HS 12/30/21 12/30/21 History Naltrexone Microspheres [VivitroL] 380 mg IM Q30D 12/30/21 12/30/21 History Pantoprazole Sodium 40 mg PO 1330 12/30/21 12/30/21 History traZODone HCL [Desyrel] 50 mg PO HS 12/30/21 12/30/21 History Allergies Allergy/AdvReac Type Severity Reaction Status Date / Time No Known Allergies Allergy Verified 12/30/21 10:18
--- NOTE | 2021-12-31 06:58 | P.HPADDEND ---
H&P Addendum H&P Addendum Date: 12/31/21 Last labs were 1 year ago. Will obtain CBC, CMP. Also non-narcotic pain management initiated.
[~2021-12-31 09:52] MED LIST changes: +ACETAMINOPHEN TAB 500 MG TAB PO PRN; -ALPRAZolam 0.25 MG TAB PO PRN; -ALPRAZolam 0.5 MG TAB PO PRN; +FAMOTIDINE 20 MG TAB PO STA; +GABAPENTIN 300 MG CAP PO PRN; +HEPARIN SODIUM,PORCINE/PF 5,000 UNIT/0.5 ML SYRINGE SQ PRN; +HYDROmorphone 0.5 MG/0.5 ML SYRINGE IVP PRN; +LACTATED RINGERS 1,000 ML IV SCH; +MELOXICAM 7.5 MG TAB PO PRN; +MIDAZOLAM 2 MG/2 ML VIAL IV PRN; -NITROGLYCERIN SL TABS 0.4 MG TAB SUBLINGUAL PRN; -SODIUM CHLORIDE 0.9% 1,000 ML in EMPTY BAG 1 BAG IV ONE; +TAMSULOSIN 0.4 MG CAP.ER.24H PO PRN
[2021-12-31] MEDS ORDERED: ONDANSETRON 4 MG/2 ML VIAL ONE (10:27)
[2021-12-31 10:43] LABS: Glucose,Whole Blood 95 mg/dL (70-110)
[2021-12-31 10:52] LABS: Basophils # (A) 0.1 k/uL (0-0.2); Basophils % (A) 1 %; Eosinophils # (A) 0.3 k/uL (0-0.7); Eosinophils % (A) 3 %; HGB 14.6 gm/dL (13.0-17.5); Lymphocytes % (A) 21 %; MCH 28.8 pg (25.0-35.0); MCHC 31.7 g/dL (31.0-37.0); MCV 90.8 fL (80.0-100.0); Mean Platelet Volume 8.9; Monocytes # (A) 0.6 k/uL (0-1.0); Monocytes % (A) 6 %; Neutrophils # (A) 6.5 k/uL (1.3-7.7); Neutrophils % (A) 69 %; Platelet Count 183 k/uL (150-450); RBC 5.06 m/uL (4.30-5.90); RDW 13.1 % (11.5-15.5); WBC 9.5 k/uL (3.8-10.6)
[2021-12-31] MEDS ORDERED: MIDAZOLAM 2 MG/2 ML VIAL IVP ONE (11:07)
[2021-12-31 11:10] LABS: ALT 15 U/L (4-49); AST 22 U/L (17-59); African American GFR (CKD) >90 (>60 ml/min/1.73 sqM); Albumin 4.1 g/dL (3.5-5.0); Alkaline Phosphatase 79 U/L (38-126); Anion Gap 8 mmol/L; Blood Urea Nitrogen 19 mg/dL (9-20); Calcium 9.3 mg/dL (8.4-10.2); Carbon Dioxide 27 mmol/L (22-30); Chloride 107 mmol/L (98-107); Glucose 100 mg/dL (74-99); Non-African American GFR(CKD) 82 (>60 ml/min/1.73 sqM); Potassium 4.1 mmol/L (3.5-5.1); Sodium 142 mmol/L (137-145); Total Bilirubin 0.3 mg/dL (0.2-1.3); Total Protein 6.4 g/dL (6.3-8.2)
--- NOTE | 2021-12-31 14:13 | P.ANPRN ---
Procedure Note - Anesthesia - Nerve Block Performed Bilateral Erector Spinae Single Time Out Performed: Yes Date of Procedure: 12/31/21 Procedure Start Time: Procedure Stop Time: Location of Patient: PreOp Indication: Acute Post-Operative Pain, Requested by Surgeon Sedation Type: Sedate with meaningful contact maintained Preparation: Sterile Prep, Sterile Dressing Position: Prone Catheter: None Needle Types: Facet Needle Gauge: 20 Ultrasound used to visualize needle placement: Yes Ultrasound used to observe medication spread: Yes Injectate: Other (see comment) (0.25% ropivacaine 30 ml + decadron 2 mg) Blood Aspirated: No Pain Paresthesia on Injection Noted: No Resistance on Injection: Normal Image Stored and Saved: Yes Events: Uneventful and Well Tolerated
[2021-12-31] MEDS ORDERED: SUCCINYLCHOLINE CHLORIDE 200 MG/10 ML VIAL IV ONE (14:15)
[2021-12-31] MEDS ORDERED: LIDOCAINE 2% INJ 20 MG/ML (2 ML VIAL) ONE (14:15)
[2021-12-31] MEDS ORDERED: MIDAZOLAM 2 MG/2 ML VIAL ONE (14:15)
[2021-12-31] MEDS ORDERED: DEXAMETHASONE SOD PHOSPHATE 4 MG/ML 1 ML VIAL ONE (14:15)
[2021-12-31] MEDS ORDERED: ROPIVACAINE 5 MG/ML 30 ML VIAL ONE (14:15)
[2021-12-31] MEDS ORDERED: PROPOFOL 10 MG/ML 20 ML VIAL IV ONE (14:15)
[2021-12-31] MEDS ORDERED: ROCURONIUM 10 MG/ML (5 ML VIAL) IV ONE (14:15)
[2021-12-31] MEDS ORDERED: NEOSTIGMINE 1 MG/ML 10 ML VIAL ONE (14:15)
[2021-12-31] MEDS ORDERED: LABETALOL 5 MG/ML VIAL MDV ONE (14:15)
[2021-12-31] MEDS ORDERED: GLYCOPYRROLATE 0.2 MG/ML 2 ML VIAL ONE (14:15)
[2021-12-31] MEDS ORDERED: BUPIVACAIN-EPI 0.25%-1:200,000 30 ML VIAL SQ ONE ×2 (14:37→14:48)
[2021-12-31] MEDS ORDERED: LABETALOL SYRINGE 5 MG/ML IVP ONE (15:07)
[2021-12-31] MEDS ORDERED: LIDOCAINE-D5W PMX 2G/250ML 2,000 MG in DEXTROSE/WATER 1 250ML.BAG IV ONE (15:07)
[2021-12-31 15:35] VITALS: TEMP 97
[2021-12-31 15:57] VITALS: RESP 16
--- NOTE | 2021-12-31 15:57 | P.OP ---
Date of Procedure: 12/31/21 Description of Procedure: SURGEON: SYBIL BRANDT MD PREOPERATIVE DIAGNOSES: 1. History of bilateral inguinal hernia repair 2. Bilateral groin pain 3. Right groin pain 4. Gastroesophageal reflux disease 5. History of tobacco use POSTOPERATIVE DIAGNOSES: 1. History of bilateral inguinal hernia repair 2. Bilateral groin pain 3. Right groin pain 4. Gastroesophageal reflux disease 5. History of tobacco use OPERATION: 1. Diagnostic laparoscopy ANESTHESIA: General with local anesthetic ESTIMATED BLOOD LOSS: 1 mL. Pathology: None COMPLICATIONS: None. Condition: stable Disposition: same day Operative Findings: 1. Prior PerFix plug repair identified along the right inguinal canal without recurrent 2. No recurrent ventral hernia 3. No recurrent left inguinal hernia done INDICATIONS: The patient is a 56-year-old female who presents with history of bilateral groin hernia repairs now with bilateral groin pain right greater than left. Now presents for surgical intervention. Laparoscopic versus open and robotic approaches were discussed. Benefits and risks including bleeding, infection and chronic groin pain were reviewed. Placement of mesh was also described. Informed consent was obtained. DESCRIPTION: The patient was brought to the operating room and initially laid in supine position. After general induction, the abdomen had been prepped and draped in standard sterile fashion. [place]an draping was also placed. Prior to incision, a timeout protocol was confirmed with surgical team regarding patient's name including procedures to be performed and location along the left groin. Initial positioning for the robotic assisted ports were selected whereby 20 cm superior to the target anatomy, 0 degree 5 mm laparoscopic trocar entry was performed at the left upper quadrant. The abdomen was insufflated to 15 mmHg which was had tolerated well. Diagnostic laparoscopy demonstrated no recurrent bilateral indirect inguinal hernias. Prior PerFix plug repair of the right groin was identified. No obturator hernias were identified. No recurrent ventral hernias were identified. The groin was inspected with Valsalva and with pressure externally along the groin without recurrent hernias found. Insufflation was released from the abdominal cavity and all instruments were removed from the abdominal cavity. The rest of incisions were reapproximated using 4-0 Monocryl in a running subcuticular fashion. Local anesthetic was placed prior to incisions Incisions were cleansed using dilute hydrogen peroxide. Dermabond was applied to the skin. At the end of the procedure, the needle, sponge and instrument counts had been verified correct by the surgical scrub technician. The patient had tolerated the procedure well and was taken to the postanesthesia care unit in stable condition.
--- NOTE | 2021-12-31 15:58 | P.OP ---
Date of Procedure: 12/31/21 Description of Procedure: SURGEON: TRINITY BULLOCK MD PREOPERATIVE DIAGNOSES: 1. History of bilateral inguinal hernia repair 2. Bilateral groin pain 3. Right groin pain 4. Gastroesophageal reflux disease 5. History of tobacco use POSTOPERATIVE DIAGNOSES: 1. History of bilateral inguinal hernia repair 2. Bilateral groin pain 3. Right groin pain 4. Gastroesophageal reflux disease 5. History of tobacco use OPERATION: 1. Diagnostic laparoscopy ANESTHESIA: General with local anesthetic ESTIMATED BLOOD LOSS: 1 mL. Pathology: None COMPLICATIONS: None. Condition: stable Disposition: same day Operative Findings: 1. Prior PerFix plug repair identified along the right inguinal canal without recurrent 2. No recurrent ventral hernia 3. No recurrent left inguinal hernia done INDICATIONS: The patient is a 56-year-old male who presents with history of bi lateral groin hernia repairs now with bilateral groin pain right greater than left. Now presents for surgical intervention. Laparoscopic versus open and robotic approaches were discussed. Benefits and risks including bleeding, infection and chronic groin pain were reviewed. Placement of mesh was also described. Informed consent was obtained. DESCRIPTION: The patient was brought to the operating room and initially laid in supine position. After general induction, the abdomen had been prepped and draped in standard sterile fashion. Ioban draping was also placed. Prior to incision, a timeout protocol was confirmed with surgical team regarding patient's name including procedures to be performed and location along the left groin. Initial positioning for the robotic assisted ports were selected whereby 20 cm superior to the target anatomy, 0 degree 5 mm laparoscopic trocar entry was performed at the left upper quadrant. The abdomen was insufflated to 15 mmHg which was had tolerated well. Diagnostic laparoscopy demonstrated no recurrent bilateral indirect inguinal hernias. Prior PerFix plug repair of the right groin was identified. No obturator hernias were identified. No recurrent ventral hernias were identified. The groin was inspected with Valsalva and with pressure externally along the groin without recurrent hernias found. Insufflation was released from the abdominal cavity and all instruments were removed from the abdominal cavity. The rest of incisions were reapproximated using 4-0 Monocryl in a running subcuticular fashion. Local anesthetic was placed prior to incisions Incisions were cleansed using dilute hydrogen peroxide. Dermabond was applied to the skin. At the end of the procedure, the needle, sponge and instrument counts had been verified correct by the surgical garment inspector. The patient had tolerated the procedure well and was taken to the postanesthesia care unit in stable condition. Plan - Discharge Summary Discharge Rx Participant: No New Discharge Prescriptions: New Acetaminophen Tab [Tylenol Tab] 1,000 mg PO Q6HR PRN #10 tablet PRN Reason: Pain Continue Pregabalin [Lyrica] 50 mg PO 1330 Albuterol Nebulized [Ventolin Nebulized] 2.5 mg INHALATION QID Nitroglycerin Sl Tabs [Nitrostat] 0.4 mg SUBLINGUAL Q5M PRN #20 tab PRN Reason: Chest Pain Aspirin 81 mg PO DAILY chew Albuterol Inhaler [Ventolin Hfa Inhaler] 2 puff INHALATION QID Ipratropium [place] [Atrovent Hfa] 2 puff INHALATION QID busPIRone HCl [Buspar] 5 mg PO BID 14 Days tab traZODone HCL [Desyrel] 50 mg PO HS Desvenlafaxine Succinate [Pristiq] 50 mg PO 1330 Naltrexone Microspheres [Vivitrol] 380 mg IM Q30D Famotidine 40 mg PO HS Pantoprazole Sodium 40 mg PO 1330 Discharge Medication List Pregabalin [Lyrica] 50 mg PO 1330 01/27/16 [History] Albuterol Nebulized [Ventolin Nebulized] 2.5 mg INHALATION QID 02/18/18 [History] Nitroglycerin Sl Tabs [Nitrostat] 0.4 mg SUBLINGUAL Q5M PRN #20 tab 07/13/18 [Rx] Aspirin 81 mg PO DAILY chew 09/01/18 [Rx] Albuterol Inhaler [Ventolin Hfa Inhaler] 2 puff INHALATION QID 12/23/19 [History] Ipratropium [place] [Atrovent Hfa] 2 puff INHALATION QID 12/23/19 [History] busPIRone HCl [Buspar] 5 mg PO BID 14 Days tab 12/26/19 [Rx] Desvenlafaxine Succinate [Pristiq] 50 mg PO 1330 12/30/21 [History] Famotidine 40 mg PO HS 12/30/21 [History] Naltrexone Microspheres [Vivitrol] 380 mg IM Q30D 12/30/21 [History] Pantoprazole Sodium 40 mg PO 1330 12/30/21 [History] traZODone HCL [Desyrel] 50 mg PO HS 12/30/21 [History] Acetaminophen Tab [Tylenol Tab] 1,000 mg PO Q6HR PRN #10 tablet 12/31/21 [Rx] Follow up Appointment(s)/Referral(s): Trinity Bullock MD [STAFF PHYSICIAN] - 01/18/22 10:00 am Patient Instructions/Handouts: Exploratory Laparoscopy (DC) Activity/Diet/Wound Care/Special Instructions: Using antibacterial soap. Lifting as tolerated May shower. No bathtub soaks for 2 weeks, Jan 14. Use ice along incisions for today to prevent swelling. Take tylenol, aleve/ibuprofen, simethicone scheduled for 3 days for best pain relief Discharge Disposition: HOME SELF-CARE
[2021-12-31 16:34] VITALS: BP 101/63; PULSE 71
== END 2021-12-31 17:04 | disposition home or self-care (01) ==
LOC: OR 09:52
PROVIDERS: ATTEND Surgery Plastic and Reconstructive Surgery
DX: R10.11 Right upper quadrant pain (principal); R10.32 Left lower quadrant pain; G89.18 Other acute postprocedural pain; K21.9 Gastro-esophageal reflux disease without esophagitis; R07.9 Chest pain, unspecified; J44.9 Chronic obstructive pulmonary disease, unspecified; I25.2 Old myocardial infarction; M19.90 Unspecified osteoarthritis, unspecified site; I47.1 Supraventricular tachycardia; Q63.8 Other specified congenital malformations of kidney; H91.92 Unspecified hearing loss, left ear; I25.10 Atherosclerotic heart disease of native coronary artery without angina pectoris; F41.9 Anxiety disorder, unspecified; I49.5 Sick sinus syndrome; F90.9 Attention-deficit hyperactivity disorder, unspecified type; F32.A Depression, unspecified; F17.210 Nicotine dependence, cigarettes, uncomplicated; Z81.1 Family history of alcohol abuse and dependence; Z82.49 Family history of ischemic heart disease and other diseases of the circulatory system; Z86.79 Personal history of other diseases of the circulatory system; Z83.79 Family history of other diseases of the digestive system; Z95.5 Presence of coronary angioplasty implant and graft; Z87.39 Personal history of other diseases of the musculoskeletal system and connective tissue; Z98.890 Other specified postprocedural states; Z81.8 Family history of other mental and behavioral disorders; Z79.51 Long term (current) use of inhaled steroids; Z79.52 Long term (current) use of systemic steroids; Z79.899 Other long term (current) drug therapy; Z86.59 Personal history of other mental and behavioral disorders
CPT/HCPCS: 49320; 64999; 80053; 85025; J2250; J0330; J1100; J2710; J0690; J2795; J2704; J2001 ×2; J1644

== ENCOUNTER → 2022-02-08 | Outpatient (CLI) | payer OTHER ==
--- NOTE | 2022-02-09 09:18 | CT ---
EXAMINATION TYPE: CT abdomen pelvis w con CT DLP: 621.9 mGycm, Automated exposure control for dose reduction was used. DATE OF EXAM: 02/08/2022 7:24 PM COMPARISON: CT pelvis most recent from 10/11/2010. CLINICAL INDICATION:Male, 56 years old with history of K57.32 Diverticulitis of large intestine; Dive rticulitis of large intestine TECHNIQUE: Axial CT of the abdomen and pelvis. Sagittal and coronal reformats were created on a [employer] workstation. Contrast used:100cc mL of Isovue 370 without and with IV Contrast, Oral contrast used: with Oral Contrast FINDINGS: LOWER CHEST: Unremarkable ABDOMEN LIVER: Unremarkable GALLBLADDER AND BILE DUCTS: Nondistended. PANCREAS: Unremarkable. SPLEEN: Unremarkable. ADRENAL GLANDS: Unremarkable. 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 No evidence of hydronephrosis of either collecting system. Renal calculi. PELVIS BLADDER: Mild circumferential bladder wall thickening likely due to underdistention. REPRODUCTIVE: Unremarkable. ABDOMEN & PELVIS STOMACH AND BOWEL: No evidence of bowel obstruction. PERITONEUM: No evidence of pneumoperitoneum or free fluid. VASCULATURE: No evidence of aortic aneurysm. MUSCULOSKELETAL: No acute osseous abnormalities LYMPH NODES: No gross evidence for lymphadenopathy. SOFT TISSUE/ABDOMINAL WALL: Unremarkable IMPRESSION: 1. No evidence of acute intra-abdominal process or evidence of diverticulitis. 2. 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
== END | disposition home or self-care (01) ==
LOC: RADCTMAIN 12:13
PROVIDERS: ATTEND Surgery Plastic and Reconstructive Surgery
DX: N28.89 Other specified disorders of kidney and ureter (principal)
CPT/HCPCS: 74177; Q9967

== ENCOUNTER 2022-02-24 09:51 | Day surgery (SDC) | payer OTHER ==
[2022-02-22 15:55] VITALS: BMI 23.1
--- NOTE | 2022-02-24 07:44 | P.GSHP ---
History of Present Illness H&P Date: 02/24/22 CHIEF COMPLAINT: GERD and colon screen HISTORY OF PRESENT ILLNESS: The patient is a 56-year-old male who presents with gastroesophageal reflux disease and need for colon screen. Upper and lower endoscopy were offered for further evaluation and management. PAST MEDICAL HISTORY: Please see list. PAST SURGICAL HISTORY: Please see list. MEDICATIONS: Please see list. ALLERGIES: Please see list. SOCIAL HISTORY: No illicit drug use FAMILY HISTORY: No reports of Crohn disease or ulcerative colitis. REVIEW OF ORGAN SYSTEMS: CONSTITUTIONAL: No reports of fevers or chills. GI: Denies any blood in stools or constipation. PHYSICAL EXAM: VITAL SIGNS: Stable GENERAL: Well-developed pleasant in no acute distress. HEENT: No scleral icterus. Extraocular movements grossly intact. Moist buccal mucosa. NECK: Supple without lymphadenopathy. CHEST: Unlabored respirations. Equal bilateral excursions. CARDIOVASCULAR: Regular rate and rhythm. Distal 2+ pulses. ABDOMEN: Soft, nondistended. MUSCULOSKELETAL: No clubbing, cyanosis, or edema. ASSESSMENT: 1. Gastroesophageal reflux disease 2. Colon screen. PLAN: 1. Recommend proceeding with an upper and lower endoscopy Past Medical History Past Medical History: Chest Pain / Angina, COPD, GERD/Reflux, Hearing Disorder / Deafness, Myocardial Infarction (AR), Osteoarthritis (OA), Supraventricular Tachycardia (SVT) Additional Past Medical History / Comment(s): Abdominal pain. 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 Last Myocardial Infarction Date:: 2006 History of Any Multi-Drug Resistant Organisms: None Reported Past Surgical History: Cardiac Ablation, Heart Catheterization, Heart Catheterization With Stent, Hernia Repair, Orthopedic Surgery Additional Past Surgical History / Comment(s): BILATERAL INGUINAL HERNIA REPAIR X2, BILATERAL CARPAL TUNNEL release, right knee surgery. Past Anesthesia/Blood Transfusion Reactions: No Reported Reaction Date of Last Stent Placement:: 08/31/2018 Past Psychological History: ADD/ADHD, Anxiety, Depression Additional Psychological History / Comment(s): ADD. Smoking Status: Current every day smoker Past Alcohol Use History: None Reported, Abuse Additional Past Alcohol Use History / Comment(s): STARTED SMOKING AT AGE 14(1979), SMOKES 1 PPD. "Alcohol free for 2 yrs." Past Drug Use History: None Reported Additional Drug Use History / Comment(s): TEENAGER, NONE SINCE. - Past Family History Father Family Medical History: Unable to Obtain Additional Family Medical History / Comment(s): PASSED WHEN PT WAS 7 YEARS OLD. WAS AN ALCOHOLIC. Mother Family Medical History: Deep Vein Thrombosis (DVT), Hypertension Additional Family Medical History / Comment(s): DIVERTICULTIS, DEPRESSION. Medications and Allergies Home Medications Medication Instructions Recorded Confirmed Type Pregabalin [Lyrica] 50 mg PO 1330 01/27/16 02/22/22 History Albuterol Nebulized [Ventolin 2.5 mg INHALATION QID 02/18/18 02/22/22 History Nebulized] Aspirin 81 mg PO DAILY chew 09/01/18 02/22/22 Rx Albuterol Inhaler [Ventolin Hfa 2 puff INHALATION QID 12/23/19 02/22/22 History Inhaler] Ipratropium [place] [Atrovent Hfa] 2 puff INHALATION QID 12/23/19 02/22/22 History busPIRone HCl [Buspar] 5 mg PO BID 14 Days tab 12/26/19 02/22/22 Rx Desvenlafaxine Succinate [Pristiq] 50 mg PO 1330 12/30/21 02/22/22 History Famotidine 40 mg PO HS 12/30/21 02/22/22 History Naltrexone Microspheres [Vivitrol] 380 mg IM Q30D 12/30/21 02/22/22 History Pantoprazole Sodium 40 mg PO 1330 12/30/21 02/22/22 History traZODone HCL [Desyrel] 50 mg PO HS 12/30/21 02/22/22 History Acetaminophen Tab [Tylenol Tab] 1,000 mg PO Q6HR PRN #10 tablet 12/31/21 02/22/22 Rx Pregabalin [Lyrica] 50 mg PO HS 02/22/22 02/22/22 History Allergies Allergy/AdvReac Type Severity Reaction Status Date / Time No Known Allergies Allergy Verified 02/22/22 15:41
[~2022-02-24 09:51] MED LIST changes: -ACETAMINOPHEN TAB 500 MG TAB PO PRN; -FAMOTIDINE 20 MG TAB PO STA; -GABAPENTIN 300 MG CAP PO PRN; -HEPARIN SODIUM,PORCINE/PF 5,000 UNIT/0.5 ML SYRINGE SQ PRN; -HYDROmorphone 0.5 MG/0.5 ML SYRINGE IVP PRN; -MELOXICAM 7.5 MG TAB PO PRN; -MIDAZOLAM 2 MG/2 ML VIAL IV PRN; -TAMSULOSIN 0.4 MG CAP.ER.24H PO PRN
[2022-02-24] MEDS ORDERED: LACTATED RINGERS 1,000 ML IV ONE (10:20)
[2022-02-24 10:28] VITALS: TEMP 97.2
[2022-02-24] MEDS ORDERED: PROPOFOL 10 MG/ML 20 ML VIAL IV ONE (10:51)
[2022-02-24] MEDS ORDERED: LIDOCAINE 2% INJ 20 MG/ML (2 ML VIAL) ONE (10:51)
[2022-02-24 11:39] VITALS: BP 124/78; PULSE 62; RESP 16
--- NOTE | 2022-02-24 11:40 | P.PCN ---
Date of Procedure: 02/24/22 Description of Procedure: PREOPERATIVE DIAGNOSIS: Gastrointestinal bleed POSTOPERATIVE DIAGNOSIS: Colonoscopy screening. Diverticulosis, scattered. OPERATION: Colonoscopy to the cecum, ileocecal valve and appendiceal orifice. SURGEON: Trinity Bullock MD. ANESTHESIA: MAC. INDICATIONS: The patient is a 56-year-old female who presents for colonoscopy screening. Benefits and risks were described and informed consent was obtained. DESCRIPTION OF PROCEDURE: The patient had undergone Sutab prep. The patient had been brought into the operating room and laid in the left lateral decubitus position. After adequate intravenous sedation, the rectum was examined with 2% lidocaine jelly. No external hemorrhoids were encountered. The rectal tone was within normal limits. No lesions were palpated in the rectal vault. An Olympus colonoscope was advanced until the cecum, ileocecal valve and appendiceal orifice were clearly viewed. The prep was excellent. Scattered diverticulosis was encountered. No colonic polyps were found. No evidence of focal colitis was found. Retroflexion of the scope demonstrated grade 1 internal hemorrhoids without active bleeding or inflammation. The colon was desufflated. The patient had tolerated the procedure well. Withdrawal time was over 6 minutes. FINDINGS: Aronchick preparation quality scale (1-5) Internal hemorrhoids, grade 1 No external prolapsed hemorrhoids. No arteriovenous malformations. No adenomatous polyps. No focal colitis. RECOMMENDATIONS: Lower endoscopy in 10 years, 2031 Plan - Discharge Summary Discharge Rx Participant: No New Discharge Prescriptions: New Sucralfate [Carafate] 1 gm PO BID #60 tablet Continue Pregabalin [Lyrica] 50 mg PO 1330 Albuterol Nebulized [Ventolin Nebulized] 2.5 mg INHALATION QID Aspirin 81 mg PO DAILY chew Albuterol Inhaler [Ventolin Hfa Inhaler] 2 puff INHALATION QID Ipratropium [place] [Atrovent Hfa] 2 puff INHALATION QID busPIRone HCl [Buspar] 5 mg PO BID 14 Days tab traZODone HCL [Desyrel] 50 mg PO HS Desvenlafaxine Succinate [Pristiq] 50 mg PO 1330 Naltrexone Microspheres [Vivitrol] 380 mg IM Q30D Famotidine 40 mg PO HS Pregabalin [Lyrica] 50 mg PO HS Pantoprazole Sodium 40 mg PO 1330 Acetaminophen Tab [Tylenol] 1,000 mg PO Q6HR PRN #10 tablet PRN Reason: Pain Discharge Medication List Pregabalin [Lyrica] 50 mg PO 1330 01/27/16 [History] Albuterol Nebulized [Ventolin Nebulized] 2.5 mg INHALATION QID 02/18/18 [History] Aspirin 81 mg PO DAILY chew 09/01/18 [Rx] Albuterol Inhaler [Ventolin Hfa Inhaler] 2 puff INHALATION QID 12/23/19 [History] Ipratropium [place] [Atrovent Hfa] 2 puff INHALATION QID 12/23/19 [History] busPIRone HCl [Buspar] 5 mg PO BID 14 Days tab 12/26/19 [Rx] Desvenlafaxine Succinate [Pristiq] 50 mg PO 1330 12/30/21 [History] Famotidine 40 mg PO HS 12/30/21 [History] Naltrexone Microspheres [Vivitrol] 380 mg IM Q30D 12/30/21 [History] Pantoprazole Sodium 40 mg PO 1330 12/30/21 [History] traZODone HCL [Desyrel] 50 mg PO HS 12/30/21 [History] Acetaminophen Tab [Tylenol] 1,000 mg PO Q6HR PRN #10 tablet 12/31/21 [Rx] Pregabalin [Lyrica] 50 mg PO HS 02/22/22 [History] Sucralfate [Carafate] 1 gm PO BID #60 tablet 02/24/22 [Rx] Follow up Appointment(s)/Referral(s): Trinity Bullock MD [STAFF PHYSICIAN] - 03/08/22 Patient Instructions/Handouts: Diet for Stomach Ulcers and Gastritis (ED), Diverticulosis Diet (GEN), Diverticulosis (GEN) Activity/Diet/Wound Care/Special Instructions: Repeat colonoscopy in 10 years, 2031 Discharge Disposition: HOME SELF-CARE
--- NOTE | 2022-02-24 11:42 | P.PCN ---
Date of Procedure: 02/24/22 Description of Procedure: PREOPERATIVE DIAGNOSIS: Gastrointestinal bleed POSTOPERATIVE DIAGNOSIS: Gastrointestinal bleed from gastric ulcers Duodenitis Gastroesophageal reflux disease OPERATION: Esophagogastroduodenoscopy with biopsies along antrum. SURGEON: Trinity Bullock MD ANESTHESIA: MAC. INDICATIONS: The patient is a 47-year-old female who presents with reflux disease. Benefits and risks of the procedure were described. Informed consent was obtained. DESCRIPTION: The patient was brought into the endoscopy suite and laid in the left lateral decubitus position. An Olympus gastroscope was passed along the posterior oropharynx down to the distal esophagus where the squamocolumnar junction was encountered at 40 cm from the incisors. The stomach was entered and no bile reflux was found. Additional findings are listed below. Biopsies with cold forceps were obtained of the antrum. The first through third portion of the duodenum was examined. Retroflexion of the scope confirmed Hill grade 2 lower esophageal valve. The squamocolumnar junction demonstrated LA grade B erosive esophagitis. The stomach was desufflated. The patient tolerated the procedure well. FINDINGS: Squamocolumnar junction 40 cm from the incisors. Diaphragmatic hiatus at 40 cm. Hill grade 2 lower esophageal valve. LA grade B erosive esophagitis. Active duodenitis. Chronic gastritis with recent bleed Acute gastric ulcer, 3 mm prepylorus with recent bleed RECOMMENDATIONS: Carafate 1 g by mouth twice a day for 4 weeks Protonix 40 mg daily
== END 2022-02-24 12:12 | disposition home or self-care (01) ==
LOC: ORWHC2ENDO 09:51
PROVIDERS: ATTEND Surgery Plastic and Reconstructive Surgery
DX: K29.50 Unspecified chronic gastritis without bleeding (principal); K21.00 Gastro-esophageal reflux disease with esophagitis, without bleeding; K29.80 Duodenitis without bleeding; K57.30 Diverticulosis of large intestine without perforation or abscess without bleeding; J44.9 Chronic obstructive pulmonary disease, unspecified; M19.90 Unspecified osteoarthritis, unspecified site; I47.1 Supraventricular tachycardia; F17.210 Nicotine dependence, cigarettes, uncomplicated; F32.A Depression, unspecified; F41.9 Anxiety disorder, unspecified
CPT/HCPCS: 88305; 45378; 43239; J2704; J2001

== ENCOUNTER → 2022-12-08 | Day surgery (SDC) | payer OTHER ==
[~2022-12-08] MED LIST changes: +ALPRAZolam 0.25 MG TAB PO PRN; +ALPRAZolam 0.5 MG TAB PO PRN; +ASPIRIN 325 MG TAB PO STA; +ASPIRIN 81 MG PO SCH; +ATORVASTATIN 40 MG TAB PO SCH; +ATORVASTATIN 80 MG TAB PO STA; +DESVENLAFAXINE SUCCINATE 50 MG TAB.ER.24H PO SCH; +HEPARIN SODIUM 1,000 UN/ML (10ML VL) IV ONE; +HEPARIN SODIUM 1,000 UN/ML (10ML VL) ONE; +HEPARIN SODIUM,PORCINE (1 ML) 2,500 UNIT in SODIUM CHLORIDE 0.9% 250 ML IRRIGATION PRN; +HEPARIN SODIUM,PORCINE 10,000 UNIT in SODIUM CHLORIDE 0.9% 1,000 ML IRRIGATION PRN; +IOPAMIDOL-370 100ML BTL INJ ONE; -LACTATED RINGERS 1,000 ML IV SCH; +LIDOCAINE 1% INJ 10MG/ML (5 ML VIAL-PF) SQ ONE; +MIDAZOLAM 2 MG/2 ML VIAL IVP ONE; +NITROGLYCERIN SL TABS 0.4 MG TAB SUBLINGUAL PRN; +NON FORMULARY DRUG (Omeprazole [Omeprazole] 20 MG Capsule.Dr) PO SCH; +PANTOPRAZOLE 40 MG TABLET PO SCH; +PREGABALIN 50 MG CAP PO SCH; +RX INFO: IV CONTRAST WAS GIVEN 1 EACH MISC MISCELLANE PRN; +SODIUM CHLORIDE 0.9% 1,000 ML IV ONE; +SODIUM CHLORIDE 0.9% 1,000 ML IV SCH; +SODIUM CHLORIDE 0.9% 1,000 ML in EMPTY BAG 1 BAG IV SCH; +TAMSULOSIN 0.4 MG CAP.ER.24H PO SCH; +VERAPAMIL SYRINGE (5 MG/10 ML) INTRAARTER ONE; +busPIRone HCl 5 MG TAB PO SCH; +traZODone HCL 50 MG TAB PO SCH
[2022-12-08 06:30] VITALS: RESP 16; TEMP 97.7
[2022-12-08 06:44] LABS: Basophils # (A) 0.1 k/uL (0-0.2); Basophils % (A) 1 %; Eosinophils # (A) 0.4 k/uL (0-0.7); Eosinophils % (A) 5 %; HCT 44.4 % (39.0-53.0); HGB 15.1 gm/dL (13.0-17.5); Lymphocytes # (A) 2.4 k/uL (1.0-4.8); Lymphocytes % (A) 32 %; MCH 30.2 pg (25.0-35.0); MCV 88.8 fL (80.0-100.0); Mean Platelet Volume 9.7; Monocytes # (A) 0.8 k/uL (0-1.0); Monocytes % (A) 10 %; Neutrophils # (A) 3.8 k/uL (1.3-7.7); Neutrophils % (A) 50 %; Platelet Count 156 k/uL (150-450); WBC 7.6 k/uL (3.8-10.6)
[2022-12-08 07:09] LABS: African American GFR (CKD) 82 (>60 ml/min/1.73 sqM); Anion Gap 7 mmol/L; Blood Urea Nitrogen 13 mg/dL (9-20); Calcium 9.4 mg/dL (8.4-10.2); Carbon Dioxide 26 mmol/L (22-30); Chloride 107 mmol/L (98-107); Glucose 83 mg/dL (74-99); Non-African American GFR(CKD) 71 (>60 ml/min/1.73 sqM); Potassium 3.9 mmol/L (3.5-5.1); Sodium 140 mmol/L (137-145)
--- NOTE | 2022-12-08 07:58 | P.CARDCATH ---
Date of Procedure: 12/08/22 Description of Procedure: Cardiac Catheterization: The patient is a 57-year-old male with known history of CAD, post PCI in 2019, hyperlipidemia and chronic tobacco use was been followed by Dr. Petersen who has been complaining of progressive symptoms of exertional chest discomfort. Recommendations were made regarding cardiac catheterization, the risks and the complications were discussed with the patient who is in full understanding and agreement. 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 Using Xylocaine Anesthesia and Seldinger technique, a 6-Khmer sheath was introduced in the right radial artery . Subsequently, selective coronary angiography was performed using a 5-Khmer 3.5 bend Dejah catheter. Multiple views of the coronary artery including hemiaxial views were obtained. The 5-Khmer pigtail catheter was used to cross the aortic valve and LVEDP was calculated. Following that, catheter and sheath were removed. Hemostasis was obtained with deployment of TR band . There was no immediate complication. Patient was returned to room in stable condition. Of note, the patient received a total of 4000 units of intravenous heparin as well as intra-arterial verapamil. Findings: Left main: This is a large size vessel, bifurcating into LAD and circumflex, left main has no high-grade stenosis LAD: This is a large size vessel, reaching to the apex, giving rise to 2 diagonal branch. The LAD at the mid segment has a 20% plaque at the takeoff of the second diagonal branch the rest of the vessel has no high-grade stenosis Left circumflex: This is a nondominant vessel eating rise to a large obtuse marginal branch. The proximal left circumflex has 20% plaque with no high-grade stenosis RCA: This is a large dominant vessel, bifurcating distally to PDA and PLV the stented segment in the mid RCA is patent there is a 20-30% in-stent restenosis rest of the vessel has no high-grade stenosis Left Ventriculogram: Not performed Hemodynamics: There was no gradient across the aortic valve , LVEDP was 16-18 mmHg Conclusion: 1. No evidence of significant restenosis in the mid RCA 2. Mild disease in the LAD and left circumflex 3. Right dominance Recommendations: I have recommended to continue present medical regimen including smoking cessation and aggressive coronary risks modifications. The findings and the recommendations were discussed with the patient and the family and they were in full understanding and agreement. Duration of sedation is 12 minutes.
[2022-12-08 12:00] VITALS: BP 118/72; PULSE 75
== END | disposition home or self-care (01) ==
LOC: CATHCVL 05:54
PROVIDERS: ATTEND Internal Medicine Interventional Cardiology
DX: I25.10 Atherosclerotic heart disease of native coronary artery without angina pectoris (principal); Z79.82 Long term (current) use of aspirin; Z79.899 Other long term (current) drug therapy
CPT/HCPCS: 93458; 80048; 85025; C1769 ×2; C1894; J2250; J2001; J1644; Q9967

== ENCOUNTER → 2023-07-06 | Outpatient (CLI) | payer OTHER ==
--- NOTE | 2023-07-06 11:34 | US ---
EXAMINATION TYPE: US gallbladder DATE OF EXAM: 07/06/2023 COMPARISON: CT abdomen and pelvis on 02/08/2022. CLINICAL INDICATION: Male, 57 years old with history of R10.9 UNSPECIFIED ABDOMINAL PAIN; Umbilical p ain with nausea x few months; Former alchoholic x 3.5 years; Smoker; New onset constipation TECHNIQUE: Multiple sonographic images of the right upper quadrant are obtained. FINDINGS: EXAM MEASUREMENTS: Liver Length: 12.0 cm Gallbladder Wall: 0.2 cm CBD: 0.4 cm Right Kidney: Fused to left kidney; Upper = 10.8 x 3.8 x 5.2 cm; Lower = 10.1 x 5.9 x 4.6 cm Pancreas: wnl Liver: wnl Gallbladder: ? Debris seen with change in patient postion Evidence for sonographic Oneil's sign: No CBD: wnl Right Kidney: As above IMPRESSION: 1. No evidence of cholelithiasis or cholecystitis. Probable sludge. 2. 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 3. No evidence of hydronephrosis.
== END | disposition home or self-care (01) ==
LOC: RADUSWWP 10:20
PROVIDERS: ATTEND Family Medicine
DX: Q63.2 Ectopic kidney (principal); R11.0 Nausea; K59.00 Constipation, unspecified
CPT/HCPCS: 76705

== ENCOUNTER 2023-08-03 23:34 | Emergency (ER) | payer OTHER ==
[2023-08-04 00:58] VITALS: RESP 18
--- NOTE | 2023-08-04 01:45 | XR ---
EXAMINATION TYPE: XR toes LT DATE OF EXAM: 08/04/2023 COMPARISON: Left foot x-ray October 12, 2016 HISTORY: Left first toe injury. TECHNIQUE: 3 views left first toe were acquired. FINDINGS: No acute displaced fracture first toe of the left foot. Joint spaces are maintained. Roslyn ing soft tissue is unremarkable. IMPRESSION: As above.
--- NOTE | 2023-08-04 02:36 | ED ---
General Adult HPI - General Chief complaint: Extremity Injury, Lower Stated complaint: left foot big toe pain Time Seen by Provider: 08/04/23 00:58 Source: patient Mode of arrival: ambulatory Limitations: no limitations - History of Present Illness Initial comments: 57-year-old male presenting to the ED with a chief complaint of left toe pain. Patient states that he was wearing boots when he was at work and he stubbed his left great toe against a wooden pallet. Reports since then has had ongoing pain of his second toe and is worried that he may have a fracture prompting presentation to the ED for further evaluation. No fever or chills. No other complaints at this time. - Related Data Home Medications Medication Instructions Recorded Confirmed Pregabalin [Lyrica] 50 mg PO TID 01/27/16 12/08/22 Albuterol Nebulized [Ventolin 2.5 mg INHALATION QID 02/18/18 12/08/22 Nebulized] Albuterol Inhaler [Ventolin Hfa 2 puff INHALATION QID 12/23/19 12/01/22 Inhaler] Ipratropium Salters [Atrovent Hfa] 2 puff INHALATION QID 12/23/19 12/08/22 Desvenlafaxine Succinate [Pristiq] 50 mg PO 1330 12/30/21 12/08/22 Naltrexone Microspheres [Vivitrol] 380 mg IM Q30D 12/30/21 12/01/22 Pantoprazole Sodium 40 mg PO 1330 12/30/21 12/08/22 traZODone HCL [Desyrel] 50 mg PO HS 12/30/21 12/08/22 Ibuprofen [Motrin] 600 mg PO Q6HR PRN 12/01/22 12/08/22 Omeprazole 20 mg PO BID 12/01/22 12/08/22 Rosuvastatin [Crestor] 20 mg PO HS 12/01/22 12/08/22 Tamsulosin [Flomax] 0.4 mg PO DAILY 12/01/22 12/08/22 Previous Rx's Medication Instructions Recorded Aspirin 81 mg PO DAILY chew 09/01/18 busPIRone HCl [Buspar] 5 mg PO BID 14 Days tab 12/26/19 Acetaminophen Tab [Tylenol] 1,000 mg PO Q6HR PRN #10 tablet 12/31/21 Allergies Allergy/AdvReac Type Severity Reaction Status Date / Time No Known Allergies Allergy Verified 12/01/22 12:02 Review of Systems ROS Statement: Those systems with pertinent positive or pertinent negative responses have been documented in the HPI. ROS Other: All systems not noted in ROS Statement are negative. 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 wore monitor recently and had U/S coming in for heart cath. SOB on and off . Last Myocardial Infarction Date:: 2006 History of Any Multi-Drug Resistant Organisms: None Reported Past Surgical History: Cardiac Ablation, Heart Catheterization, Heart Catheterization With Stent, Hernia Repair, Orthopedic Surgery Additional Past Surgical History / Comment(s): BILATERAL INGUINAL HERNIA REPAIR X2, BILATERAL CARPAL TUNNEL release, right knee surgery. Past Anesthesia/Blood Transfusion Reactions: No Reported Reaction Date of Last Stent Placement:: 08/31/2018 Past Psychological History: ADD/ADHD, Anxiety, Depression Smoking Status: Current every day smoker - Past Family History Father Family Medical History: Unable to Obtain Additional Family Medical History / Comment(s): PASSED WHEN PT WAS 7 YEARS OLD. WAS AN ALCOHOLIC. Mother Family Medical History: Deep Vein Thrombosis (DVT), Hypertension Additional Family Medical History / Comment(s): DIVERTICULTIS, DEPRESSION. General Exam Limitations: no limitations General appearance: alert, in no apparent distress Eye exam: Present: normal appearance Neck exam: Present: normal inspection Respiratory exam: Present: normal lung sounds bilaterally Cardiovascular Exam: Present: regular rate Extremities exam: Present: other (Left great toe does show some tenderness to palpation. Some surrounding erythema but no significant warmth or swelling.) Neurological exam: Present: alert, oriented X3 Skin exam: Present: warm, dry Course Vital Signs 08/04/23 00:15 Temperature 98.1 F Pulse Rate 69 Respiratory 18 Rate Blood Pressure 133/83 O2 Sat by Pulse 96 Oximetry Medical Decision Making - Medical Decision Making Was pt. sent in by a medical professional or institution (, PA, HOUSE COORDINATOR, urgent care, hospital, or residential...) When possible be specific @ -No Did you speak to anyone other than the patient for history (EMS, parent, family, police, friend...)? What history was obtained from this source @ -No Did you review nursing and triage notes (agree or disagree)? Why? @ -I reviewed and agree with nursing and triage notes Were old charts reviewed (outside hosp., previous admission, EMS record, old EKG, old radiological studies, urgent care reports/EKG's, residential records)? Report findings @ -No old charts were reviewed Differential Diagnosis (chest pain, altered mental status, abdominal pain women, abdominal pain men, vaginal bleeding, weakness, fever, dyspnea, syncope, headache, dizziness, GI bleed, back pain, seizure, CVA, palpatations, mental health, musculoskeletal)? @ -Differential Musculoskeletal Muscular strain, contusion, ligament sprain, fracture, arthritis, septic arthritis, bursitis, cellulitis, muscle spasm, nerve compression, DVT, arterial occlusion, herpes zoster, electrolyte abnormality, tumor.... This is not meant to be in all inclusive list EKG interpreted by me (3pts min.). @ -None X-rays interpreted by me (1pt min.). @ -X-ray of the toe interpreted me which revealed no evidence of fracture or other acute finding. CT interpreted by me (1pt min.). @ -None done U/S interpreted by me (1pt. min.). @ -None done What testing was considered but not performed or refused? (CT, X-rays, U/S, labs)? Why? @ -None What meds were considered but not given or refused? Why? @ -None Did you discuss the management of the patient with other professionals (professionals i.e. , PA, HOUSE COORDINATOR, lab, RT, psych nurse, social media specialist, associate engineer, teacher, traffic officer, case finisher)? Give summary @ -No Was smoking cessation discussed for >3mins.? @ -No Was critical care preformed (if so, how long)? @ -No Were there social determinants of health that impacted care today? How? (Homelessness, low income, unemployed, alcoholism, drug addiction, transportation, low edu. Level, literacy, decrease access to med. care, usp, rehab)? @ -No Was there de-escalation of care discussed even if they declined (Discuss DNR or withdrawal of care, Hospice)? DNR status @ -No What co-morbidities impacted this encounter? (DM, HTN, Smoking, COPD, CAD, Cancer, CVA, ARF, Chemo, Hep., AIDS, mental health diagnosis, sleep apnea, morbid obesity)? @ -None Was patient admitted / discharged? Hospital course, mention meds given and route, prescriptions, significant lab abnormalities, going to OR and other pertinent info. @ -Discharge 57-year-old male presented to the ED with left great toe injury approximately 2 weeks ago and is concerned he may have fractured this. X-ray revealed no evidence of fracture or other acute finding. Patient was offered analgesia here in the ED however declined. Reports he has good supplies of analgesia at home in which is concerned that he may have a fracture. Discharged home in stable condition and advised follow-up with his PCP. Discussed return precautions with patient who verbalized agreement. Undiagnosed new problem with uncertain prognosis? @ -No Drug Therapy requiring intensive monitoring for toxicity (Heparin, Nitro, Insulin, Cardizem)? @ -No Were any procedures done? @ -No Diagnosis/symptom? @ -Left great toe injury/pain Acute, or Chronic, or Acute on Chronic? @ -Acute Uncomplicated (without systemic symptoms) or Complicated (systemic symptoms)? @ -Uncomplicated Side effects of treatment? @ -No Exacerbation, Progression, or Severe Exacerbation? @ -No Poses a threat to life or bodily function? How? (Chest pain, USA, SD, pneumonia, PE, COPD, DKA, ARF, appy, cholecystitis, CVA, Diverticulitis, Homicidal, Suicidal, threat to staff... and all critical care pts) @ -No Disposition Clinical Impression: Toe pain, left Disposition: HOME SELF-CARE Condition: Good Additional Instructions: Please return to the Emergency Department if symptoms worsen or any other concerns. Please follow-up with your primary care provider. Is patient prescribed a controlled substance at d/c from ED?: No Referrals: Epi Boyd DO [Primary Care Provider] - 1-2 days Time of Disposition: 02:38
[2023-08-04 03:31] VITALS: BP 130/74; PULSE 65; TEMP 98
== END 2023-08-04 03:03 | disposition home or self-care (01) ==
LOC: EC 23:34
DX: S99.922A Unspecified injury of left foot, initial encounter (principal); F17.200 Nicotine dependence, unspecified, uncomplicated; X58.XXXA Exposure to other specified factors, initial encounter
CPT/HCPCS: 99283

== ENCOUNTER 2023-08-17 13:18 | Day surgery (SDC) | payer OTHER ==
[2023-08-14 14:06] VITALS: BMI 24.3
--- NOTE | 2023-08-17 10:06 | P.GSHP ---
History of Present Illness H&P Date: 08/17/23 CHIEF COMPLAINT: Cholecystitis HISTORY OF PRESENT ILLNESS: The patient is a 80-year-old male who presents with history of epigastric including right upper quadrant abdominal pain. He underwent diagnostic studies for the gallbladder. Separately his clinical picture was consistent with cholecystitis. Now he presents for surgical intervention. PAST MEDICAL HISTORY: Please see list PAST SURGICAL HISTORY: Please see list MEDICATIONS: Please see list ALLERGIES: Denies. SOCIAL HISTORY: No illicit drug use or recent tobacco use FAMILY HISTORY: Pertinent for gallbladder disease REVIEW OF ORGAN SYSTEMS: CONSTITUTIONAL: No reports of fevers or chills. HEENT: Denies any troubles with the vision or hearing. ENDOCRINE: No reports of hypothyroidism. No diabetes. RESPIRATORY: No recent pneumonias. CARDIOVASCULAR: Denies chest pain or palpitations GI: No blood in stools or constipation. MUSCULOSKELETAL: Has occasional joint pain including back pain. NEURO: No seizure disorders or headaches. No recent stroke. PSYCH: No depression or suicidal ideation. HEMATOLOGIC: No personal or family history of DVTs or pulmonary emboli. PHYSICAL EXAM: VITAL SIGNS: Afebrile vital signs stable GENERAL: Well-developed pleasant male in no acute distress. HEENT: No scleral icterus. Extraocular movements grossly intact. Moist buccal mucosa. NECK: Supple without lymphadenopathy. CHEST: Unlabored respirations. Equal bilateral excursions. CARDIOVASCULAR: Regular rate regular rhythm rhythm. Distal 2+ pulses. ABDOMEN: Soft, nondistended. Tender along the epigastrium and right upper quadrant. MUSCULOSKELETAL: No clubbing, cyanosis, or edema. NEURO : No focal or lateralizing signs. Cranial nerves II-12 within normal limits. PSYCH: Alert and oriented to person, place and time. SKIN: Well perfused. Good skin turgor. ASSESSMENT: 1. Epigastric and right upper quadrant abdominal pain 2. Chronic cholecystitis PLAN: 1. Will need a robotic cholecystectomy possible open. Benefits and risks were described. 2. Heparin for DVT prophylaxis 5000 units. 3. Antibiotic prophylaxis. 4. 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 Past Anesthesia/Blood Transfusion Reactions: No Reported Reaction Date of Last Stent Placement:: 08/31/2018 Past Psychological History: ADD/ADHD, Anxiety, Depression Additional Psychological History / Comment(s): ADD. Smoking Status: Current every day smoker Past Alcohol Use History: None Reported, Abuse Additional Past Alcohol Use History / Comment(s): STARTED SMOKING AT AGE 14(198 0), SMOKES 1/2 PPD. "Alcohol free for 3 yrs." Past Drug Use History: None Reported Additional Drug Use History / Comment(s): drugs TEENAGER, NONE SINCE. - Past Family History Father Family Medical History: Unable to Obtain Additional Family Medical History / Comment(s): PASSED WHEN PT WAS 7 YEARS OLD. WAS AN ALCOHOLIC. Mother Family Medical History: Deep Vein Thrombosis (DVT), Hypertension Additional Family Medical History / Comment(s): DIVERTICULTIS, DEPRESSION. Medications and Allergies Home Medications Medication Instructions Recorded Confirmed Type busPIRone HCl [Buspar] 5 mg PO BID 14 Days tab 12/26/19 08/14/23 Rx Desvenlafaxine Succinate [Pristiq] 50 mg PO 1330 12/30/21 08/14/23 History traZODone HCL [Desyrel] 50 mg PO HS 12/30/21 08/14/23 History Rosuvastatin [Crestor] 20 mg PO HS 12/01/22 08/14/23 History Tamsulosin [Flomax] 0.4 mg PO DAILY 12/01/22 08/14/23 History Famotidine 20 mg PO DAILY 08/14/23 08/14/23 History Ranolazine [Ranexa] 500 mg PO BID 08/14/23 08/14/23 History Allergies Allergy/AdvReac Type Severity Reaction Status Date / Time No Known Allergies Allergy Verified 08/14/23 13:22
[~2023-08-17 13:18] MED LIST changes: -ALPRAZolam 0.25 MG TAB PO PRN; -ALPRAZolam 0.5 MG TAB PO PRN; -ASPIRIN 325 MG TAB PO STA; -ASPIRIN 81 MG PO SCH; -ATORVASTATIN 40 MG TAB PO SCH; -ATORVASTATIN 80 MG TAB PO STA; -DESVENLAFAXINE SUCCINATE 50 MG TAB.ER.24H PO SCH; -HEPARIN SODIUM 1,000 UN/ML (10ML VL) IV ONE; -HEPARIN SODIUM 1,000 UN/ML (10ML VL) ONE; -HEPARIN SODIUM,PORCINE (1 ML) 2,500 UNIT in SODIUM CHLORIDE 0.9% 250 ML IRRIGATION PRN; -HEPARIN SODIUM,PORCINE 10,000 UNIT in SODIUM CHLORIDE 0.9% 1,000 ML IRRIGATION PRN; -IOPAMIDOL-370 100ML BTL INJ ONE; -LIDOCAINE 1% INJ 10MG/ML (5 ML VIAL-PF) SQ ONE; -MIDAZOLAM 2 MG/2 ML VIAL IVP ONE; -NITROGLYCERIN SL TABS 0.4 MG TAB SUBLINGUAL PRN; -NON FORMULARY DRUG (Omeprazole [Omeprazole] 20 MG Capsule.Dr) PO SCH; +ONDANSETRON 4 MG/2 ML VIAL IVP PRN; -PANTOPRAZOLE 40 MG TABLET PO SCH; -PREGABALIN 50 MG CAP PO SCH; -RX INFO: IV CONTRAST WAS GIVEN 1 EACH MISC MISCELLANE PRN; -SODIUM CHLORIDE 0.9% 1,000 ML IV ONE; -SODIUM CHLORIDE 0.9% 1,000 ML IV SCH; -SODIUM CHLORIDE 0.9% 1,000 ML in EMPTY BAG 1 BAG IV SCH; -TAMSULOSIN 0.4 MG CAP.ER.24H PO SCH; -VERAPAMIL SYRINGE (5 MG/10 ML) INTRAARTER ONE; -busPIRone HCl 5 MG TAB PO SCH; -traZODone HCL 50 MG TAB PO SCH
[2023-08-17] MEDS: LACTATED RINGERS 1,000 ML IV SCH (13:51)
[2023-08-17] MEDS: ACETAMINOPHEN TAB 500 MG TAB PO PRN (13:54)
[2023-08-17] MEDS: ONDANSETRON 4 MG/2 ML VIAL IVP ONE (13:55)
[2023-08-17] MEDS: HEPARIN SODIUM,PORCINE 5,000 UNIT/ML 1 ML VIAL SQ PRN (13:55)
[2023-08-17] MEDS: DEXAMETHASONE SOD PHOSPHATE 4 MG/ML 1 ML VIAL IV ONE (13:55)
[2023-08-17 13:58] LABS: Basophils # (A) 0.1 k/uL (0-0.2); Basophils % (A) 1 %; Eosinophils # (A) 0.2 k/uL (0-0.7); Eosinophils % (A) 3 %; HCT 43.9 % (39.0-53.0); HGB 14.4 gm/dL (13.0-17.5); Lymphocytes # (A) 1.7 k/uL (1.0-4.8); Lymphocytes % (A) 28 %; MCHC 32.8 g/dL (31.0-37.0); MCV 91.4 fL (80.0-100.0); Mean Platelet Volume 8.8; Monocytes # (A) 0.5 k/uL (0-1.0); Monocytes % (A) 8 %; Neutrophils # (A) 3.4 k/uL (1.3-7.7); Neutrophils % (A) 57 %; Platelet Count 188 k/uL (150-450); RBC 4.81 m/uL (4.30-5.90); RDW 12.7 % (11.5-15.5)
[2023-08-17] MEDS ORDERED: INDOCYANINE GREEN 25 MG VIAL IV STA (14:14)
[2023-08-17 14:20] LABS: ALT 12 U/L (4-49); AST 18 U/L (17-59); African American GFR (CKD) >90 (>60 ml/min/1.73 sqM); Albumin 3.6 g/dL (3.5-5.0); Alkaline Phosphatase 72 U/L (38-126); Anion Gap 6 mmol/L; Blood Urea Nitrogen 16 mg/dL (9-20); Calcium 9.4 mg/dL (8.4-10.2); Carbon Dioxide 21 mmol/L (22-30); Chloride 111 mmol/L (98-107); Glucose 96 mg/dL (74-99); Non-African American GFR(CKD) 79 (>60 ml/min/1.73 sqM); Potassium 4.3 mmol/L (3.5-5.1); Sodium 138 mmol/L (137-145); Total Bilirubin 0.6 mg/dL (0.2-1.3); Total Protein 5.9 g/dL (6.3-8.2)
[2023-08-17] MEDS ORDERED: SUGAMMADEX SODIUM 200 MG/2 ML SDV IV ONE (14:22)
[2023-08-17] MEDS ORDERED: GLYCOPYRROLATE 0.2 MG/ML 2 ML VIAL ONE (14:22)
[2023-08-17] MEDS ORDERED: SUCCINYLCHOLINE CHLORIDE 200 MG/10 ML VIAL IV ONE (14:22)
[2023-08-17] MEDS ORDERED: ROCURONIUM 10 MG/ML (5 ML VIAL) IV ONE (14:22)
[2023-08-17] MEDS ORDERED: LIDOCAINE 1% INJ 10MG/ML (20 ML MDV) ONE (14:22)
[2023-08-17] MEDS ORDERED: KETOROLAC 15 MG/ML 1 ML VIAL ONE (14:22)
[2023-08-17] MEDS ORDERED: MIDAZOLAM 2 MG/2 ML VIAL ONE (14:22)
[2023-08-17] MEDS ORDERED: fentaNYL (PF) 50 MCG/ML 2 ML AMP ONE (14:22)
[2023-08-17] MEDS ORDERED: PROPOFOL 10 MG/ML 20 ML VIAL IV ONE (14:22)
[2023-08-17 14:23] VITALS: TEMP 97.8
[2023-08-17] MEDS: LIDOCAINE 1%-EPI 1:100,000 20 ML VIAL SQ ONE (14:50)
[2023-08-17] MEDS: HYDROmorphone 0.5 MG/0.5 ML SYRINGE IVP PRN (15:26)
--- NOTE | 2023-08-17 15:53 | P.OP ---
Date of Procedure: 08/17/23 Description of Procedure: SURGEON: TRINITY BULLOCK MD PREOPERATIVE DIAGNOSES: 1. Symptomatic gallstones 2. Right upper quadrant abdominal pain 3. Depressive disorder 4. Hyperlipidemia 5. Coronary artery disease 6. Chronic struct of pulmonary disease 7. History of myocardial infarction 8. History of supraventricular tachycardia 9. Congenital duplicated kidney 10. History of cardiac catheterization with stent placement 11. ADD with ADHD 12. Tobacco abuse disorder 13. Generalized anxiety disorder POSTOPERATIVE DIAGNOSES: 1. Symptomatic gallstones with chronic cholecystitis 2. Right upper quadrant abdominal pain 3. Depressive disorder 4. Hyperlipidemia 5. Coronary artery disease 6. Chronic struct of pulmonary disease 7. History of myocardial infarction 8. History of supraventricular tachycardia 9. Congenital duplicated kidney 10. History of cardiac catheterization with stent placement 11. ADD with ADHD 12. Tobacco abuse disorder 13. Generalized anxiety disorder OPERATION: Robotic-assisted da Sergio Xi laparoscopic cholecystectomy, multiport with FIREFL Y ESTIMATED BLOOD LOSS: 5 mL. SPECIMENS REMOVED: Gallbladder. COMPLICATIONS: None. OPERATIVE FINDINGS: 1. No fatty liver disease or hepatomegaly 2. No recurrent inguinal hernia INDICATIONS: The patient is a 56-year-old male who presents with symptomatic gallstones. Robotic assisted laparoscopic approach was described. Benefits and risks of the procedure including but not limited to bleeding, infection, injury to the biliary tree was described. Informed consent was obtained. DESCRIPTION OF PROCEDURE: Patient was brought to the operating room, placed in supine position. After general induction, the abdomen had been prepped and draped in standard sterile fashion. The robotic da Sergio XI system was primed. After a timeout protocol was performed, the patient had been prepped and draped in standard sterile fashion. The patient was injected with indocyanine green. A 5 mm 0 degrees laparoscopic trocar entry was performed along the left upper quadrant. The abdomen insufflated to 15 mmHg pressure which was tolerated well. Diagnostic laparoscopy demonstrated no injury to bowel viscera or mesentery. The liver surface was unremarkable. Next, two 8 mm robotic ports were placed along the right upper abdomen. The camera 8-mm port was maintained along the epigastrium. Another 8 mm port was placed along the left upper abdominal wall after exchanging the 5 mm port. Please note that the ports were placed at least 10 to 15 cm away from the target anatomy of the gallbladder. The robot was docked along the left lateral abdomen. The patient was repositioned in reverse Trendelenburg position. Using a grasper for arm 3, a grasper for arm 4, including hook cautery for arm 1, the robotic system was docked and primed as described. Instruments were interchanged by the culture media laboratory assistant including hook cautery, Bovie cautery and clip appliers. I had sat at the console. Next attention was brought to the infundibulum and cystic structures. The infundibulum and cystic duct were dissected free from surrounding tissues. The cystic duct was isolated. FIREFLY was used to identify the cystic artery and cystic structures. A critical view of safety was obtained. Large PLASTIC clips were used throughout the entire case. Using a clip wheel installer, 2 clips were placed at the junction of the infundibulum and cystic duct. The cystic duct was divided between clips. Next, the cystic artery was similarly clipped and cauterized. Electro-Bovie cautery was used to remove the gallbladder from the hepatic fossa. Hemostasis was checked and found to be adequate. The robot was undocked. I re-scrubbed into the case. Using a 10 mm Endo Catch bag via the left upper quadrant incision, the specimen was removed from the abdominal cavity. All pneumoperitoneum instruments were evacuated from the abdominal cavity. The incisions were reapproximated using 4-0 Monocryl in an interrupted subcuticular fashion. Fascial defects were less than 8 mm in size. Please note along the trocar sites, local anesthetic was placed as a field block prior to insertion of all instruments. Liquid glue was applied to the skin. At the end of the procedure needle, sponge, and instrument count had been verified correct by the tool maintenance technician. The patient was transferred to postanesthesia care unit in stable condition. Intraoperative films were shared with the patient's family. Plan - Discharge Summary Discharge Rx Participant: No New Discharge Prescriptions: New Simethicone [Gas-X] 125 mg PO AC-TID PRN #20 capsule PRN Reason: Pain Acetaminophen Tab [Tylenol Tab] 1,000 mg PO Q6HR PRN #30 tablet PRN Reason: Pain Ibuprofen [Motrin] 600 mg PO Q8HR PRN #30 tab PRN Reason: Pain Continue busPIRone HCl [Buspar] 5 mg PO BID 14 Days tab traZODone HCL [Desyrel] 50 mg PO HS Desvenlafaxine Succinate [Pristiq] 50 mg PO 1330 Tamsulosin [Flomax] 0.4 mg PO DAILY Rosuvastatin [Crestor] 20 mg PO HS Ranolazine [Ranexa] 500 mg PO BID Famotidine 20 mg PO DAILY Discharge Medication List busPIRone HCl [Buspar] 5 mg PO BID 14 Days tab 12/26/19 [Rx] Desvenlafaxine Succinate [Pristiq] 50 mg PO 1330 12/30/21 [History] traZODone HCL [Desyrel] 50 mg PO HS 12/30/21 [History] Rosuvastatin [Crestor] 20 mg PO HS 12/01/22 [History] Tamsulosin [Flomax] 0.4 mg PO DAILY 12/01/22 [History] Famotidine 20 mg PO DAILY 08/14/23 [History] Ranolazine [Ranexa] 500 mg PO BID 08/14/23 [History] Acetaminophen Tab [Tylenol Tab] 1,000 mg PO Q6HR PRN #30 tablet 08/17/23 [Rx] Ibuprofen [Motrin] 600 mg PO Q8HR PRN #30 tab 08/17/23 [Rx] Simethicone [Gas-X] 125 mg PO AC-TID PRN #20 capsule 08/17/23 [Rx] Follow up Appointment(s)/Referral(s): Trinity Bullock MD [STAFF PHYSICIAN] - 08/22/23 (TELEHEALTH - WILL CALL YOU BETWEEN 9 am to 8 pm) Patient Instructions/Handouts: Laparoscopic Cholecystectomy (DC), Low Fat Diet (DC) Activity/Diet/Wound Care/Special Instructions: TELEHEALTH - WILL CALL YOU BETWEEN 9 am to 8 pm Recommend low-fat diet for the next 2 days. No lifting over 10 pounds in 2 weeks until August 30August shower. No bath tub soaks for two weeks until August 30 Diet as tolerated. Use Tylenol, simethicone and ibuprofen or Aleve scheduled for the next 24-48 hours for best pain relief. Use ice along incisions for today to prevent swelling. Discharge Disposition: HOME SELF-CARE
[2023-08-17 17:16] VITALS: BP 125/79; PULSE 84; RESP 17
== END 2023-08-17 17:26 | disposition home or self-care (01) ==
LOC: OR 13:18
PROVIDERS: ATTEND Surgery Plastic and Reconstructive Surgery
DX: K80.10 Calculus of gallbladder with chronic cholecystitis without obstruction (principal); F32.A Depression, unspecified; E78.5 Hyperlipidemia, unspecified; I25.10 Atherosclerotic heart disease of native coronary artery without angina pectoris; J44.9 Chronic obstructive pulmonary disease, unspecified; K21.9 Gastro-esophageal reflux disease without esophagitis; M19.90 Unspecified osteoarthritis, unspecified site; J98.4 Other disorders of lung; I25.2 Old myocardial infarction; Q63.0 Accessory kidney; F90.9 Attention-deficit hyperactivity disorder, unspecified type; F41.1 Generalized anxiety disorder; F17.210 Nicotine dependence, cigarettes, uncomplicated; Z95.5 Presence of coronary angioplasty implant and graft; Z79.899 Other long term (current) drug therapy; Z83.79 Family history of other diseases of the digestive system; Z98.890 Other specified postprocedural states; Z82.49 Family history of ischemic heart disease and other diseases of the circulatory system; Z79.51 Long term (current) use of inhaled steroids
CPT/HCPCS: 47563; S2900; 80053; 85025; 88304

== ENCOUNTER 2023-09-04 21:35 | Emergency (ER) | payer OTHER ==
[2023-09-04 22:24] VITALS: TEMP 97.9
--- NOTE | 2023-09-04 22:25 | ED ---
General Adult HPI - General Source: patient, RN notes reviewed Mode of arrival: ambulatory Limitations: no limitations <Nasrin Mills - Last Filed: 09/04/23 22:23> <Deuce Gonzalez - Last Filed: 09/05/23 01:46> - General Chief complaint: Skin/Abscess/Foreign Body Stated complaint: Incision irritation-post surgery Time Seen by Provider: 09/04/23 22:23 - History of Present Illness Initial comments: Quick note: 55-year-old male presents to the emergency department for evaluation of incisional pain. Patient states that he had surgery to have his gallbladder removed about [address] Bullock. He states that since then he has noticed a hardened area with pain to one of the incisions on the left side of his abdomen. He admits to taking Tylenol and Motrin for this. (Nasrin Mills) 57-year-old male presenting with chief complaint of pain over his abdominal incision. Patient had a cholecystectomy with Dr. Bullock about 1 month ago. States that since then he has noticed a bulge with some pain over the incision on the left side of his abdomen. It is sometimes larger and another times much smaller. He is having no nausea or vomiting. He is having normal bowel movements. He is eating and drinking normally. No fevers or chills. No redness or drainage. He has been taking Tylenol Motrin as needed. He has an appointment with Dr. Bullock on the . (Deuce Gonzalez) - Related Data Home Medications Medication Instructions Recorded Confirmed Desvenlafaxine Succinate [Pristiq] 50 mg PO 1330 12/30/21 08/17/23 traZODone HCL [Desyrel] 50 mg PO HS 12/30/21 08/17/23 Rosuvastatin [Crestor] 20 mg PO HS 12/01/22 08/17/23 Tamsulosin [Flomax] 0.4 mg PO DAILY 12/01/22 08/17/23 Famotidine 20 mg PO DAILY 08/14/23 08/17/23 Ranolazine [Ranexa] 500 mg PO BID 08/14/23 08/17/23 Previous Rx's Medication Instructions Recorded busPIRone HCl [Buspar] 5 mg PO BID 14 Days tab 12/26/19 Acetaminophen Tab [Tylenol Tab] 1,000 mg PO Q6HR PRN #30 tablet 08/17/23 Ibuprofen [Motrin] 600 mg PO Q8HR PRN #30 tab 08/17/23 Simethicone [Gas-X] 125 mg PO AC-TID PRN #20 capsule 08/17/23 Allergies Allergy/AdvReac Type Severity Reaction Status Date / Time No Known Allergies Allergy Verified 09/04/23 22:10 Review of Systems ROS Other: All systems not noted in ROS Statement are negative. <Nasrin Mills - Last Filed: 09/04/23 22:23> ROS Other: All systems not noted in ROS Statement are negative. <Deuce Gonzalez - Last Filed: 09/05/23 01:46> ROS Statement: Those systems with pertinent positive or pertinent negative responses have been documented in the HPI. 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 Past Anesthesia/Blood Transfusion Reactions: No Reported Reaction Date of Last Stent Placement:: 08/31/2018 Past Psychological History: ADD/ADHD, Anxiety, Depression Smoking Status: Current every day smoker Past Alcohol Use History: None Reported, Abuse Past Drug Use History: None Reported - Past Family History Father Family Medical History: Unable to Obtain Additional Family Medical History / Comment(s): PASSED WHEN PT WAS 7 YEARS OLD. WAS AN ALCOHOLIC. Mother Family Medical History: Deep Vein Thrombosis (DVT), Hypertension Additional Family Medical History / Comment(s): DIVERTICULTIS, DEPRESSION. <Nasrin Mills - Last Filed: 09/04/23 22:23> General Exam Limitations: no limitations <Nasrin Mills - Last Filed: 09/04/23 22:23> Limitations: no limitations General appearance: alert, in no apparent distress Head exam: Present: atraumatic, normocephalic Eye exam: Present: normal appearance, EOMI Neck exam: Present: normal inspection. Absent: meningismus Respiratory exam: Absent: respiratory distress Cardiovascular Exam: Present: regular rate GI/Abdominal exam: Present: soft. Absent: distended, tenderness, guarding, rebound, rigid Neurological exam: Present: alert, oriented X3 Psychiatric exam: Present: normal affect, normal mood Skin exam: Present: warm, dry <Deuce Gonzalez - Last Filed: 09/05/23 01:46> - General Exam Comments Initial Comments: Visual Physical Exam Vital signs reviewed General: Well-appearing, nontoxic, no acute distress. Head: Normocephalic, atraumatic Eyes: PERRLA, EOMI ENT: Airway patent Chest: Nonlabored breathing Skin: No visual rash, normal skin tone Neuro: Alert and oriented 3 Musculoskeletal: No gross abnormalities (Nasrin Mills) Course Vital Signs 09/04/23 09/05/23 22:07 00:50 Temperature 97.9 F Pulse Rate 60 56 L Respiratory 18 16 Rate Blood Pressure 106/68 119/77 O2 Sat by Pulse 99 97 Oximetry Medical Decision Making <Nasrin Mills - Last Filed: 09/04/23 22:23> <Deuce Gonzalez - Last Filed: 09/05/23 01:46> - Medical Decision Making Quick note preformed and electronically signed by Nasrin Mills PA-C (Nasrin Mills) Was pt. sent in by a medical professional or institution (YEVGENIY Ascencio, DIRECTOR OF STRATEGIC SOURCING, urgent care, hospital, or fci...) When possible be specific @ -No Did you speak to anyone other than the patient for history (EMS, parent, family, police, friend...)? What history was obtained from this source @ -No Did you review nursing and triage notes (agree or disagree)? Why? @ -I reviewed and agree with nursing and triage notes Were old charts reviewed (outside hosp., previous admission, EMS record, old EKG, old radiological studies, urgent care reports/EKG's, fci records)? Report findings @ -No old charts were reviewed Differential Diagnosis (chest pain, altered mental status, abdominal pain women, abdominal pain men, vaginal bleeding, weakness, fever, dyspnea, syncope, headache, dizziness, GI bleed, back pain, seizure, CVA, palpatations, mental health, musculoskeletal)? @ -[facility] Differential Abdominal Pain Men: Appendicitis, cholecystitis, diverticulosis, ischemic bowel, pancreatitis, hepatitis, UTI, gastroenteritis, AAA, incarcerated hernia, bowel obstruction, constipation, inflammatory bowel, hepatitis, peptic ulcer disease, splenic infarction, perforated viscus, testicular torsion... This is not meant to be an all-inclusive list EKG interpreted by me (3pts min.). @ -As above X-rays interpreted by me (1pt min.). @ -None done CT interpreted by me (1pt min.). @ -None done U/S interpreted by me (1pt. min.). @ -Ultrasound shows a defect within the left mid abdominal wall measuring 1.9 cm wide. No herniation of soft tissue through the defect at the time of the scan. No abscess or mass. What testing was considered but not performed or refused? (CT, X-rays, U/S, labs)? Why? @ -None What meds were considered but not given or refused? Why? @ -None Did you discuss the management of the patient with other professionals (professionals i.e. , PA, DIRECTOR OF STRATEGIC SOURCING, lab, RT, psych nurse, social service agency director, supermarket manager, teacher, business banking officer, social work case manager)? Give summary @ -No Was smoking cessation discussed for >3mins.? @ -No Was critical care preformed (if so, how long)? @ -No Were there social determinants of health that impacted care today? How? (Homelessness, low income, unemployed, alcoholism, drug addiction, transportation, low edu. Level, literacy, decrease access to med. care, fpc, rehab)? @ -No Was there de-escalation of care discussed even if they declined (Discuss DNR or withdrawal of care, Hospice)? DNR status @ -No What co-morbidities impacted this encounter? (DM, HTN, Smoking, COPD, CAD, Cancer, CVA, ARF, Chemo, Hep., AIDS, mental health diagnosis, sleep apnea, morbid obesity)? @ -None Was patient admitted / discharged? Hospital course, mention meds given and route, prescriptions, significant lab abnormalities, going to OR and other pertinent info. @ -57-year-old male presenting with chief complaint of pain over his abdominal incision. He had a cholecystectomy [address] Bullock. Workup is initiated by triage. Ultrasound shows defect to the abdominal wall with no evidence of abscess and no soft tissue bulging through the defect at the time of the scan. Patient is later placed in a room and evaluated by myself. When he is describing his symptoms this sounds clinically in line with the diagnosis of hernia. He is having no alarm symptoms and no evidence of an incarcerated or strangulated hernia. He has an upcoming appointment with Dr. Bullock later this month. Discharged home. Follow-up with PCP. Report back to ER with any new or worsening symptoms. Discussed return parameters and answered all questions. Patient conveyed verbal understanding and agreed to the plan. I discussed this case in detail with my attending Dr. Still Undiagnosed new problem with uncertain prognosis? @ -No Drug Therapy requiring intensive monitoring for toxicity (Heparin, Nitro, Insulin, Cardizem)? @ -No Were any procedures done? @ -No Diagnosis/symptom? @ -Abdominal wall defect, hernia Acute, or Chronic, or Acute on Chronic? @ -Acute Uncomplicated (without systemic symptoms) or Complicated (systemic symptoms)? @ -Uncomplicated Side effects of treatment? @ -No Exacerbation, Progression, or Severe Exacerbation? @ -No Poses a threat to life or bodily function? How? (Chest pain, USA, ID, pneumonia, PE, COPD, DKA, ARF, appy, cholecystitis, CVA, Diverticulitis, Homicidal, Suicidal, threat to staff... and all critical care pts) @ -Low likelihood (Deuce Gonzalez) Disposition <Nasrin Mills - Last Filed: 09/04/23 22:23> Is patient prescribed a controlled substance at d/c from ED?: No Time of Disposition: 00:56 <Deuce Gonzalez - Last Filed: 09/05/23 01:46> Clinical Impression: Abdominal wall defect, acquired, Hernia Disposition: HOME SELF-CARE Condition: Good Instructions (If sedation given, give patient instructions): Ventral Hernia (ED) Additional Instructions: Follow-up with your surgeon. Report back to ER with any new or worsening symptoms. Referrals: Epi Boyd DO [Primary Care Provider] - 1-2 days Trinity Bullock MD [STAFF PHYSICIAN] - 1-2 days
--- NOTE | 2023-09-04 23:48 | US ---
EXAM: US Abdomen Limited CLINICAL HISTORY: ITS.REASON US Reason: left abdomen incision TECHNIQUE: Real-time ultrasound of the soft tissues of the abdomen with image documentation. COMPARISON: No relevant prior studies available. FINDINGS/IMPRESSION: There appears to be a defect within the left mid abdominal wall measuring 1.9 cm wide. No herniation of soft tissues through the defect at the time of the scan. No abscess or mass.
[2023-09-05 01:34] VITALS: BP 119/77; PULSE 56; RESP 16
== END 2023-09-05 01:20 | disposition home or self-care (01) ==
LOC: EC 21:35
DX: M95.8 Other specified acquired deformities of musculoskeletal system (principal); K43.9 Ventral hernia without obstruction or gangrene; F17.200 Nicotine dependence, unspecified, uncomplicated; Z90.49 Acquired absence of other specified parts of digestive tract
CPT/HCPCS: 76705; 99283

== ENCOUNTER 2023-10-05 11:15 | Day surgery (SDC) | payer OTHER ==
[2023-10-03 11:59] VITALS: BMI 24.7
[~2023-10-05 11:15] MED LIST changes: +HYDROmorphone 0.5 MG/0.5 ML SYRINGE IVP PRN; +METOCLOPRAMIDE 5 MG/ML 2 ML VIAL IVP PRN; +MIDAZOLAM 2 MG/2 ML VIAL IV PRN; -ONDANSETRON 4 MG/2 ML VIAL IVP PRN; +Pre Op ABX Message 1 EACH MISC MISCELLANE ONE; +fentaNYL (PF) 50 MCG/ML 2 ML AMP IV PRN
[2023-10-05] MEDS: LIDOCAINE 1% (10MG/ML) FOR IV START INTRADERMA PRN (12:05)
[2023-10-05] MEDS: IV FLUID CONTINUATION 1,000 ML IV ONE (12:06)
[2023-10-05] MEDS: DEXAMETHASONE SOD PHOSPHATE 4 MG/ML 1 ML VIAL IV ONE (12:06)
[2023-10-05] MEDS: ONDANSETRON 4 MG/2 ML VIAL IVP ONE (12:06)
[2023-10-05] MEDS: LACTATED RINGERS 1,000 ML IV SCH (12:06)
[2023-10-05] MEDS: MELOXICAM 7.5 MG TAB PO PRN (12:07)
[2023-10-05] MEDS: ACETAMINOPHEN TAB 500 MG TAB PO PRN (12:07)
[2023-10-05] MEDS: HEPARIN SODIUM,PORCINE 5,000 UNIT/ML 1 ML VIAL SQ PRN (12:08)
--- NOTE | 2023-10-05 12:37 | P.GSHP ---
History of Present Illness H&P Date: 10/05/23 CHIEF COMPLAINT: Abdominal mass HISTORY OF PRESENT ILLNESS: The patient is a 58 year-old male with history of mass along the abdomen of the left abdominal wall for over 2 months. Reports painful growth. Diagnostic studies were reviewed. He presents today for surgical excision. PAST MEDICAL HISTORY: Please see list. PAST SURGICAL HISTORY: Please see list. MEDICATIONS: Please see list. ALLERGIES: Please see list. SOCIAL HISTORY: No illicit drug use FAMILY HISTORY: No reports of Crohn disease or ulcerative colitis. REVIEW OF ORGAN SYSTEMS: CONSTITUTIONAL: No reports of fevers or chills. GI: Denies any blood in stools or constipation. PHYSICAL EXAM: VITAL SIGNS: Stable SKIN: Well perfused. Good skin turgor. Mass 5 cm long right lower abdomen Musculoskeletal: No clubbing cyanosis or edema GENERAL: Well developed and in no acute distress. Pleasant. HEENT: No sclera icterus. Extraocular movements grossly intact. Moist buccal mucosa. Head is atraumatic, normocephalic. Hears conversational speech. No nasal drainage. NECK: Supple without lymphadenopathy. No JV distention. CHEST: Non-labored respirations and equal bilateral excursions. CARDIOVASCULAR: Regular rate and rhythm. Palpable 2+ radial pulses. ABDOMEN: Soft. Non-tender. Nondistended. NEUROLOGIC: No focal or lateralizing signs. PSYCH: Appropriate affect. Alert and oriented to person, place and time. STUDIES: Ultrasound of the abdomen independent review demonstrates soft tissue mass of the subcutaneous tissue. No recurrent hernia. ASSESSMENT: 1. Mass along left lateral abdominal wall PLAN: 1. Will proceed of excision of subcutaneous tumor along the abdomen 2. DVT prophylaxis. 3. Antibiotic prophylaxis. 4. Time of recovery, at least one week. Past Medical History Past Medical History: Coronary Artery Disease (CAD), Chest Pain / Angina, COPD, GERD/Reflux, Hearing Disorder / Deafness, Hyperlipidemia, Myocardial Infarction (ND), Osteoarthritis (OA), Prostate Disorder, Supraventricular Tachycardia (SVT) Additional Past Medical History / Comment(s): Abdominal pain after angle hernia surgery-nerve entrapment, diverticulosis, HX SVT, BORN WITH BOTH KIDNEYS ON LEFT SIDE, slight hearing loss in left ear Last Myocardial Infarction Date:: 2006 History of Any Multi-Drug Resistant Organisms: None Reported Past Surgical History: Cardiac Ablation, Cholecystectomy, Heart Catheterization, Heart Catheterization With Stent, Hernia Repair, Orthopedic Surgery Additional Past Surgical History / Comment(s): BILATERAL INGUINAL HERNIA REPAIR X2, BILATERAL CARPAL TUNNEL, right knee surgery Past Anesthesia/Blood Transfusion Reactions: No Reported Reaction Date of Last Stent Placement:: 08/31/2018 Past Psychological History: ADD/ADHD, Anxiety, Depression Additional Psychological History / Comment(s): . Smoking Status: Current every day smoker Past Alcohol Use History: None Reported Additional Past Alcohol Use History / Comment(s): STARTED SMOKING AT AGE 14(1979), SMOKES 1/2 PPD. PAST ALCOHOL ABUSE-HAS NOT DRANK ALCOHOL SINCE 2019 Past Drug Use History: None Reported Additional Drug Use History / Comment(s): . - Past Family History Father Family Medical History: Unable to Obtain Additional Family Medical History / Comment(s): PASSED WHEN PT WAS 7 YEARS OLD. WAS AN ALCOHOLIC. Mother Family Medical History: Deep Vein Thrombosis (DVT), Hypertension Additional Family Medical History / Comment(s): DIVERTICULITIS, DEPRESSION Medications and Allergies Home Medications Medication Instructions Recorded Confirmed Type busPIRone HCl [Buspar] 5 mg PO BID 14 Days tab 12/26/19 10/05/23 Rx Desvenlafaxine Succinate [Pristiq] 50 mg PO 1330 12/30/21 10/05/23 History traZODone HCL [Desyrel] 50 mg PO HS 12/30/21 10/05/23 History Rosuvastatin [Crestor] 20 mg PO HS 12/01/22 10/05/23 History Tamsulosin [Flomax] 0.4 mg PO 1330 12/01/22 10/05/23 History Famotidine 20 mg PO DAILY 08/14/23 10/05/23 History Ranolazine [Ranexa] 500 mg PO BID 08/14/23 10/05/23 History Allergies Allergy/AdvReac Type Severity Reaction Status Date / Time No Known Allergies Allergy Verified 10/05/23 11:48 Surgical - Exam Vital Signs Temp Pulse Resp BP Pulse Ox 98.1 F 64 16 128/87 97 10/05/23 11:46 10/05/23 11:46 10/05/23 11:46 10/05/23 11:46 10/05/23 11:46
[2023-10-05] MEDS ORDERED: SUCCINYLCHOLINE CHLORIDE 200 MG/10 ML VIAL IV ONE (13:12)
[2023-10-05] MEDS ORDERED: LIDOCAINE 1% INJ 10MG/ML (20 ML MDV) ONE (13:12)
[2023-10-05] MEDS ORDERED: PROPOFOL 10 MG/ML 20 ML VIAL IV ONE (13:12)
[2023-10-05] MEDS ORDERED: ceFAZolin 1 GM/50 ML BAG (PMX) ONE (13:12)
[2023-10-05] MEDS ORDERED: fentaNYL (PF) 50 MCG/ML 2 ML AMP ONE (13:12)
[2023-10-05] MEDS ORDERED: MIDAZOLAM 2 MG/2 ML VIAL ONE (13:12)
[2023-10-05] MEDS: SODIUM CHLORIDE 0.9% 50 ML with ceFAZolin 1,000 MG IV ONE (13:31)
[2023-10-05] MEDS: LIDOCAINE 1%-EPI 1:100,000 20 ML VIAL SQ ONE (13:32)
[2023-10-05 14:14] VITALS: TEMP 97.3
[2023-10-05 15:04] VITALS: RESP 17
[2023-10-05 15:19] VITALS: BP 141/93; PULSE 74
--- NOTE | 2023-10-10 09:33 | P.OP ---
Date of Procedure: 10/05/23 Description of Procedure: SURGEON: TRINITY BULLOCK MD PREOPERATIVE DIAGNOSES: 1. Left upper abdominal wall tumor 2. Hyperlipidemia 3. Depressive disorder 4. Gastroesophageal reflux disease 5. Benign obstructive uropathy POSTOPERATIVE DIAGNOSES: 1. Left upper abdominal wall tumor 2. Hyperlipidemia 3. Depressive disorder 4. Gastroesophageal reflux disease 5. Benign obstructive uropathy 6. Incarcerated incisional hernia, 5 mm OPERATION: 1. Excision of the left upper abdominal subfascial tumor, 6 x 2 cm 2. Intermediate closure abdominal incision, 6 cm ANESTHESIA: General endotracheal anesthesia, local ESTIMATED BLOOD LOSS: 5 mL. SPECIMENS REMOVED: Upperabdominal wall tumor. COMPLICATIONS: None. FINDINGS: 1. Subcutaneous nodule excised 6 x 2 cm extending to subfascial 2. Incisional hernia 5 mm incarcerated, reduced INDICATIONS: The patient is a 58-year-old male who presents with a painful abdominal wall tumor over 1 to 2 months. Surgical options, including excision was discussed. Benefits and risks were described. Informed consent was obtained. DESCRIPTION OF PROCEDURE: Patient was brought into the operating room, laid in supine position. After intubation, the abdomen was prepped and draped in standard sterile fashion using ChloraPrep. A timeout protocol was confirmed with the surgical team regarding patient's name including procedures to be performed. Next, field block using local anesthetic was administered along the left upper abdomen with a palpable subfascial nodule. An elliptical incision 6 x 2 cm, to the deep fascia where the nodule was palpated. Using electro- Bovie cautery, the tumor was excised deep to the fascia. An incisional hernia 5 mm was identified and closed using interrupted 0 Vicryl. Hemostasis was checked with electro- Bovie cautery. The specimen was passed off. Next the wound was closed in layers using 0 Vicryl, 3-0 Vicryl for the deep subcutaneous tissue followed by a running subcuticular suture of 4-0 Monocryl. The skin was cleansed and Dermabond tape and Optifoam was applied. At the end of the procedure, needle, sponge, and instrument count had been verified correct by the production line technician. The patient was taken to the postanesthesia care unit in stable condition. Plan - Discharge Summary Discharge Rx Participant: No New Discharge Prescriptions: New Ibuprofen [Motrin] 600 mg PO Q8HR PRN #30 tab PRN Reason: Pain Cyclobenzaprine [Flexeril] 10 mg PO TID #30 tab Continue busPIRone HCl [Buspar] 5 mg PO BID 14 Days tab traZODone HCL [Desyrel] 50 mg PO HS Desvenlafaxine Succinate [Pristiq] 50 mg PO 1330 Tamsulosin [Flomax] 0.4 mg PO 1330 Rosuvastatin [Crestor] 20 mg PO HS Ranolazine [Ranexa] 500 mg PO BID Famotidine 20 mg PO DAILY Discharge Medication List busPIRone HCl [Buspar] 5 mg PO BID 14 Days tab 12/26/19 [Rx] Desvenlafaxine Succinate [Pristiq] 50 mg PO 1330 12/30/21 [History] traZODone HCL [Desyrel] 50 mg PO HS 12/30/21 [History] Rosuvastatin [Crestor] 20 mg PO HS 12/01/22 [History] Tamsulosin [Flomax] 0.4 mg PO 1330 12/01/22 [History] Famotidine 20 mg PO DAILY 08/14/23 [History] Ranolazine [Ranexa] 500 mg PO BID 08/14/23 [History] Cyclobenzaprine [Flexeril] 10 mg PO TID #30 tab 10/05/23 [Rx] Ibuprofen [Motrin] 600 mg PO Q8HR PRN #30 tab 10/05/23 [Rx] Follow up Appointment(s)/Referral(s): Trinity Bullock MD [STAFF PHYSICIAN] - 10/17/23 2:45 pm Patient Instructions/Handouts: *Surgery [facility] - (Anesthesia) Discharge Instructions Outpatient Surgery, General Mass Excision (DC) Activity/Diet/Wound Care/Special Instructions: DO NOT REMOVE DRESSING May shower. No bath tub soaks for two weeks until October 18 Diet as tolerated. Use Tylenol and ibuprofen or Aleve scheduled for the next 24-48 hours for best pain relief. Use ice along incisions for today to prevent swelling. Discharge Disposition: HOME SELF-CARE
== END 2023-10-05 15:50 | disposition home or self-care (01) ==
LOC: OR 11:15
PROVIDERS: ATTEND Surgery Plastic and Reconstructive Surgery
DX: K43.0 Incisional hernia with obstruction, without gangrene (principal); I96 Gangrene, not elsewhere classified; I25.2 Old myocardial infarction; I25.10 Atherosclerotic heart disease of native coronary artery without angina pectoris; F41.9 Anxiety disorder, unspecified; J44.9 Chronic obstructive pulmonary disease, unspecified; K21.9 Gastro-esophageal reflux disease without esophagitis; F32.A Depression, unspecified; F90.9 Attention-deficit hyperactivity disorder, unspecified type; M19.90 Unspecified osteoarthritis, unspecified site; E78.5 Hyperlipidemia, unspecified; F17.210 Nicotine dependence, cigarettes, uncomplicated; Z98.890 Other specified postprocedural states; Z90.49 Acquired absence of other specified parts of digestive tract; Z79.899 Other long term (current) drug therapy
CPT/HCPCS: 88305; 22901; J2250; J0330; J1644; J1100; J2405; J0690 ×2; J2001; J3010; J2704

== ENCOUNTER → 2023-10-10 | Outpatient (CLI) | payer OTHER ==
--- NOTE | 2023-10-10 18:57 | CTL ---
EXAMINATION TYPE: CT Low Dose Lung DATE OF EXAM ORDERED: 10/10/2023 HISTORY: Long-term tobacco use. Lung cancer screening CT DLP: 117.[address] CTDI: 2.9 mGy Automated exposure control for dose reduction was used. SCREENING VISIT: Baseline COMPARISON: None TECHNIQUE: Low dose computed tomography scan was performed through the chest at 1 mm thick sections a nd reconstructed images in multiple planes at 1 mm and [address] DIAGNOSTIC QUALITY: Satisfactory FINDINGS: Nodules: RUL: None. RML: None. RLL: None. CELIA: None. LLL: None. LUNGS: COPD: Severity: Mild Fibrosis: Severity: None Lymph nodes: None Other findings: None RIGHT PLEURAL SPACE: Effusion: None Calcification: None Thickening: None Pneumothorax: None LEFT PLEURAL SPACE: Effusion: None Calcification: None Thickening: None Pneumothorax: None HEART: Heart Size: Normal Coronary Calcification: Moderate coronary artery calcification or stent in the RCA distribution, scott elate clinically. Pericardial Effusion: Trace OTHER FINDINGS: Upper abdomen: Anterior axis to the left kidney is seen Bony thorax: None Supraclavicular region: None Other: None IMPRESSION: No suspicious pulmonary nodules. CT LUNG RAD AND CT CHEST RECOMMENDATION: Lung-Rad 1 Negative: Continue annual screening with LDCT in 12 months. S Modifier (other clinically significant findings): None
== END | disposition home or self-care (01) ==
LOC: RADCTMAIN 17:12
PROVIDERS: ATTEND Internal Medicine
DX: Z12.2 Encounter for screening for malignant neoplasm of respiratory organs (principal); F17.210 Nicotine dependence, cigarettes, uncomplicated
CPT/HCPCS: 71271

== ENCOUNTER → 2024-01-04 | Outpatient (CLI) | payer OTHER ==
--- NOTE | 2024-01-04 10:23 | CT ---
EXAMINATION TYPE: CT soft tissue neck w con DATE OF EXAM: 01/04/2024 10:00 AM COMPARISON: None HISTORY: pain in throat X [address] DLP: 368.10 mGycm Automated exposure control for dose reduction was used. CONTRAST: CT scan of the neck is performed following with IV Contrast, patient injected with 100 mL of Isovue 3 00. Axial images are obtained, coronal and sagittal reformatted images are reviewed. FINDINGS: There are no supraclavicular lymph nodes. There is no thyroid mass or gross enlargement. The larynx including the cricoid, arytenoid and thyroid cartilages as well as the vocal cords are nor mal and symmetric. The epiglottis, aryepiglottic folds, piriform sinuses and vallecula are normal and symmetric.. The ri ght tongue base, there is a slight asymmetry in soft tissue is likely an artifact of the scan but di rect inspection is recommended to exclude neoplasm.( See series 3.0 image #168) The parotid and submandibular glands are normal and symmetric without focal mass or gross enlargement . There is no pharyngeal or parapharyngeal soft tissue mass or enhancement The great vessels of the neck are normal. There are few scattered nonenlarged jugular lymph nodes and submental lymph nodes but there is no lym phadenopathy. There is no soft tissue swelling, inflammation or abscess. Mild chronic inflammatory changes in the right maxillary sinus. IMPRESSION: Slight asymmetry in the right aspect of the tongue base which is likely artifactual but the possibili ty of neoplasm cannot be entirely excluded. Direct inspection is suggested to rule out malignancy. No adenopathy within the neck and no other significant abnormalities.
== END | disposition home or self-care (01) ==
LOC: RADCTMAIN 09:20
PROVIDERS: ATTEND Family Medicine
DX: R07.0 Pain in throat (principal)
CPT/HCPCS: 70491

== ENCOUNTER 2024-05-19 09:07 | Emergency (ER) | payer OTHER ==
--- NOTE | 2024-05-19 09:30 | ED ---
URI HPI - General Chief Complaint: Upper Respiratory Infection Stated Complaint: diarrhea cough Time Seen by Provider: 05/19/24 09:20 Source: patient, RN notes reviewed Mode of arrival: ambulatory Limitations: no limitations - History of Present Illness Initial Comments: This is a 58-year-old male who presents to the emergency department for coughing and congestion. States that it started 1.5 weeks ago. The cough is productive with yellow sputum. He does have a history of COPD, but is not particularly short of breath. Denies any chest pain. He only has some discomfort in the rib cage when he coughs. Denies any fevers/chills or sick contacts. He has tried [id number] Mucinex with some relief. He is also using his Trelegy inhaler which is helpful for his breathing. Additionally, yesterday he started to have diarrhea. He has gone 4 times since yesterday. Denies any nausea/vomiting or abdominal pain. MD Complaint: cough, nasal congestion - Related Data Home Medications Medication Instructions Recorded Confirmed Desvenlafaxine Succinate [Pristiq] 50 mg PO 1330 12/30/21 10/05/23 traZODone HCL [Desyrel] 50 mg PO HS 12/30/21 10/05/23 Rosuvastatin [Crestor] 20 mg PO HS 12/01/22 10/05/23 Tamsulosin [Flomax] 0.4 mg PO 1330 12/01/22 10/05/23 Famotidine 20 mg PO DAILY 08/14/23 10/05/23 Ranolazine [Ranexa] 500 mg PO BID 08/14/23 10/05/23 Previous Rx's Medication Instructions Recorded busPIRone HCl [Buspar] 5 mg PO BID 14 Days tab 12/26/19 Cyclobenzaprine [Flexeril] 10 mg PO TID #30 tab 10/05/23 Ibuprofen [Motrin] 600 mg PO Q8HR PRN #30 tab 10/05/23 Azithromycin [Zithromax] 250 mg PO DIRECTED 5 Days #6 tab 05/19/24 Benzonatate [Tessalon Perle] 200 mg PO TID PRN #20 capsule 05/19/24 predniSONE 50 mg PO DAILY 5 Days #5 tab 05/19/24 Allergies Allergy/AdvReac Type Severity Reaction Status Date / Time No Known Allergies Allergy Verified 05/19/24 09:19 Review of Systems ROS Statement: Those systems with pertinent positive or pertinent negative responses have been documented in the HPI. ROS Other: All systems not noted in ROS Statement are negative. 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, slight hearing loss in left ear Last Myocardial Infarction Date:: 2006 History of Any Multi-Drug Resistant Organisms: None Reported Past Surgical History: Cardiac Ablation, Cholecystectomy, Heart Catheterization, Heart Catheterization With Stent, Hernia Repair, Orthopedic Surgery Additional Past Surgical History / Comment(s): BILATERAL INGUINAL HERNIA REPAIR X2, BILATERAL CARPAL TUNNEL, right knee surgery Past Anesthesia/Blood Transfusion Reactions: No Reported Reaction Date of Last Stent Placement:: 08/31/2018 Past Psychological History: ADD/ADHD, Anxiety, Depression Smoking Status: Current every day smoker Past Alcohol Use History: None Reported Past Drug Use History: None Reported - Past Family History Father Family Medical History: Unable to Obtain Additional Family Medical History / Comment(s): PASSED WHEN PT WAS 7 YEARS OLD. WAS AN ALCOHOLIC. Mother Family Medical History: Deep Vein Thrombosis (DVT), Hypertension Additional Family Medical History / Comment(s): DIVERTICULITIS, DEPRESSION General Exam Limitations: no limitations General appearance: alert, in no apparent distress Head exam: Present: atraumatic, normocephalic, normal inspection Respiratory exam: Present: normal lung sounds bilaterally. Absent: respiratory distress, wheezes, rales, rhonchi, stridor Cardiovascular Exam: Present: regular rate, normal rhythm GI/Abdominal exam: Present: soft, normal bowel sounds. Absent: distended, tenderness, guarding, rebound, rigid Neurological exam: Present: alert, oriented X3, CN II-XII intact Psychiatric exam: Present: normal affect, normal mood Skin exam: Present: warm, dry, intact, normal color. Absent: rash Course Vital Signs 05/19/24 05/19/24 05/19/24 09:17 10:12 10:41 Temperature 98.5 F 98.1 F Pulse Rate 109 H 86 84 Respiratory 18 18 Rate Blood Pressure 144/83 136/90 O2 Sat by Pulse 98 97 Oximetry 05/19/24 05/19/24 10:49 11:06 Temperature 98.6 F Pulse Rate 88 86 Respiratory 20 Rate Blood Pressure 138/86 O2 Sat by Pulse 97 Oximetry Medical Decision Making - Medical Decision Making This is a 58-year-old male who presents to the emergency department for coughing and congestion. Was pt. sent in by a medical professional or institution? @ -No Did you speak to anyone other than the patient for history? @ -No Did you review nursing and triage notes? @ -Yes, and I agree, it is accurate with regards to the patient's symptoms. Were old charts reviewed? @ -No Differential Diagnosis? @ -Differential Cough: Influenza, Covid, RSV, croup, allergic rhinitis, GERD, pneumonia, bronchitis, COPD, viral pharyngitis, streptococcal pharyngitis, this is not meant to be an all-inclusive list. EKG interpreted by me (3pts min.)? @ -Not obtained X-rays interpreted by me (1pt min.)? @ -Chest x-ray obtained, my interpretation identifies no localized con solidations or infiltrates. CT interpreted by me (1pt min.)? @ -Not obtained U/S interpreted by me (1pt. min.)? @ -Not obtained What testing was considered but not performed? (CT, X-rays, U/S, labs)? Why? @ -None What meds were considered but not given? Why? @ -None Did you discuss the management of the patient with other professionals? @ -No Did you reconcile home meds? @ -No Was smoking cessation discussed for >3mins.? @ -I discussed smoking cessation for greater than 3 minutes. The risk of smoking were discussed with the patient including but not limited to risks of cancer, stroke, coronary artery disease and COPD. Also discussed with patient were multiple methods of quitting smoking. Lastly we discussed the financial cost of smoking. Was critical care preformed (if so, how long)? @ -No Were there social determinants of health that impacted care today? How? (Homelessness, low income, unemployed, alcoholism, drug addiction, transportation, low edu. Level, literacy, decrease access to med. care, [facility], rehab)? @ -No Was there de-escalation of care discussed even if they declined? (Discuss DNR or withdrawal of care, Hospice)? @ -No What co-morbidities impacted this encounter? (DM, HTN, Smoking, COPD, CAD, Cancer, CVA, Hep., AIDS, mental health diagnosis, sleep apnea, morbid obesity)? @ -COPD, smoking Was patient admitted / discharged? @ -Discharged. COVID, influenza, and RSV testing negative. Chest x-ray reveals no acute process. Symptoms likely viral in nature or related to a COPD exacerbation. He was given a dose of IM Solu-Medrol in the emergency department along with Tessalon Perles and Lomotil. He was also treated with a DuoNeb breathing treatment and ipratropium nasal spray. He was sent home with the ipratropium nasal spray to help with his postnasal drip. Azithromycin and 5-day course of prednisone prescribed for COPD exacerbation. Tessalon Perles prescribed as well for the cough. Advised [id number] Imodium for the diarrhea if the Lomotil is not effective. Patient discharged home in stable condition. Case discussed with ED attending Dr. Malone. Return precautions reviewed in depth, the patient is instructed to return to the emergency department with any new, worsening, or concerning symptoms. Patient verbalized understanding. Undiagnosed new problem with uncertain prognosis? @ -None Drug Therapy requiring intensive monitoring for toxicity (Heparin, Nitro, Insulin, Cardizem)? @ -None Were any procedures done? @ -None Diagnosis/symptom? @ -COPD exacerbation Acute, or Chronic, or Acute on Chronic? @ -Acute on chronic Uncomplicated (without systemic symptoms) or Complicated (systemic symptoms)? @ -Uncomplicated Side effects of treatment? @ -None Exacerbation, Progression, or Severe Exacerbation] @ -Exacerbation Poses a threat to life or bodily function? @ -Unlikely - Lab Data Lab Results 05/19/24 Range/Units 09:27 Influenza Type A (PCR) Not Detected (Not Detectd) Influenza Type B (PCR) Not Detected (Not Detectd) RSV (PCR) Not Detected (Not Detectd) SARS-CoV-2 (PCR) Not Detected (Not Detectd) - Radiology Data Radiology results: report reviewed, image reviewed Disposition Clinical Impression: COPD exacerbation, Diarrhea, Nicotine dependence Disposition: HOME SELF-CARE Instructions (If sedation given, give patient instructions): COPD (Chronic Obstructive Pulmonary Disease) (ED) Additional Instructions: Return to the emergency department with any new, worsening, or concerning symptoms. Take the antibiotic as prescribed for 5 days. Take the prednisone daily for 5 days. You can take the Tessalon Perles up to every 8 hours as needed for coughing. Use the ipratropium nasal spray provided as 2 sprays in each nostril up to 3 times daily to help with the nasal drip. Use the Lomotil provided or take [id number] Imodium to help with the diarrhea. Follow up with your primary care provider in 1-2 days. Prescriptions: predniSONE 50 mg PO DAILY 5 Days #5 tab Benzonatate [Tessalon Perle] 200 mg PO TID PRN #20 capsule PRN Reason: Cough Azithromycin [Zithromax] 250 mg PO DIRECTED 5 Days #6 tab Is patient prescribed a controlled substance at d/c from ED?: No Referrals: Epi Boyd DO [Primary Care Provider] - 1-2 days Time of Disposition: 11:00
[2024-05-19] MEDS: BENZONATATE 100 MG CAP PO STA (09:32)
[2024-05-19] MEDS: DIPHENOX-ATROP 2.5-0.025 MG 1 EACH TAB PO STA (09:33)
[2024-05-19] MEDS: methylPREDNISolone SOD SUCCI 125 MG/2 ML VIAL IM ONE (09:34)
[2024-05-19] MEDS: IPRATROPIUM BROMIDE 0.06% NASAL SPRAY (15 ML) NASAL STA (09:43)
--- NOTE | 2024-05-19 09:53 | XR ---
EXAMINATION TYPE: XR chest 2V DATE OF EXAM: 05/19/2024 9:43 AM COMPARISON: Chest radiographs from 03/10/2021 CLINICAL INDICATION: Male, 58 years old with history of Cough; [facility] TECHNIQUE: XR chest 2V Frontal and lateral views of the chest. FINDINGS: Lungs/Pleura: There is no evidence of pleural effusion, focal consolidation, or pneumothorax. Pulmonary vascularity: Unremarkable. Heart/mediastinum: Cardiomediastinal silhouette is unremarkable. Musculoskeletal: No acute osseous pathology. IMPRESSION: No acute cardiopulmonary disease/process. [facility], , 05/19/2024 9:51 AM
[2024-05-19 10:10] LABS: Influenza A Not Detected (Not Detectd); Influenza B Not Detected (Not Detectd); RSV Not Detected (Not Detectd)
[2024-05-19] MEDS: IPRATROPIUM-ALBUTEROL 3 ML NEB INHALATION STA (10:41)
[2024-05-19] MEDS: DIPHENOX-ATROP STARTER PACK 8 TAB BTL PO STA (11:03)
[2024-05-19 11:08] VITALS: BP 138/86; PULSE 86; RESP 20; TEMP 98.6
== END 2024-05-19 11:08 | disposition home or self-care (01) ==
LOC: EC 09:07
DX: R19.7 Diarrhea, unspecified (principal); J44.1 Chronic obstructive pulmonary disease with (acute) exacerbation; F17.200 Nicotine dependence, unspecified, uncomplicated
CPT/HCPCS: 94640; 87636; 71046; 99284; 96372; 99406; J2919